=== PATIENT | female | born 1980 | race Caucasian/White ===

== ENCOUNTER → 2018-10-17 09:32 | Outpatient (CLI) | payer OTHER, SELFPAY ==
[2018-10-18 04:55] LABS: Rapid Plasmin Reagin (RPR) NONREACTIVE (NONREACTIVE)
--- OUTSIDE RECORDS SUMMARY | 2018-12-03 03:25 | XMS RPT_ITS ---
:1980 Author Organization OHIP Care Team Providers Name Role Phone Venessa MUÑIZ (PA-C) Referring Unavailable SONAL SPEARS (AIRPLANE CABIN ATTENDANT) Attending Unavailable Venessa MUÑIZ (PA-C) Attending Unavailable Venessa MUÑIZ (PA-C) Attending Unavailable LOCO REN Attending Unavailable Venessa MUÑIZ (PA-C) Attending Unavailable VINCENT [place] (PT) Attending Unavailable Venessa MUÑIZ (PA-C) Referring Unavailable MUÑIZVenessa (PA-C) Referring Unavailable MUÑIZVenessa (PA-C) Attending Unavailable Venessa MUÑIZ (PA-C) Attending Unavailable Venessa MUÑIZ (PA-C) Attending Unavailable LOCO REN Referring Unavailable JENNA FRASER (AIRPLANE CABIN ATTENDANT) Attending Unavailable Venessa MUÑIZ (PA-C) Attending Unavailable LOCO REN Referring Unavailable LOCO REN Attending Unavailable JENNA FRASER (AIRPLANE CABIN ATTENDANT) Referring Unavailable RADHA, JENNA (AIRPLANE CABIN ATTENDANT) Referring Unavailable MUÑIZVenessa CANDELARIO (PA-C) Attending Unavailable Venessa MUÑIZ (PA-C) Attending Unavailable Venessa MUÑIZ (PA-C) Attending Unavailable LOCO REN Attending Unavailable Venessa MUÑIZ (PA-C) Attending Unavailable Venessa MUÑIZ (PA-C) Referring Unavailable MUÑIZVenessa CANDELARIO (PA-C) Attending Unavailable Venessa MUÑIZ (PA-C) Attending Unavailable JENNA FRASER (AIRPLANE CABIN ATTENDANT) Attending Unavailable VINCENT [place] (PT) Attending Unavailable Venessa MUÑIZ (ESPERANZA) Referring Unavailable Radha, Ileana Attending Unavailable Radha, Ileana Referring Unavailable Primay Care Physicia, No Primary Care Unavailable PROBLEMS PROBLEMS DATE TYPE CONDITION / CODE ATTENDING STATUS SOURCE 10/17/2018 Active Left upper quadrant NA Active [facility] pain / [facility] [place] R10.12(ICD-10) Repository 10/18/2018 Unknown Z11.3 - Encounter [place], Active [place] for screening for Ileana Community infections with a Hospital predominantly Repository sexual mode of transmission / Z11.3(ICD-10) 10/04/2018 Active Chest pain, NA Active [facility] unspecified / [facility] [place] R07.9(ICD-10) Repository 06/03/2018 Active Unspecified injury NA Active [facility] of right wrist, [place] hand and finger(s), Repository initial encounter / S69.91XA(ICD-10) 03/13/2014 Active Anxiety disorder, NA Active [facility] unspecified / [place] F41.9(ICD-10) Repository 05/24/2018 Active Fasciculation / NA Active [facility] R25.3(ICD-10) [place] Repository 12/12/2017 Active Headache / NA Active [facility] R51(ICD-10) [place] Repository PROCEDURES PROCEDURES No Procedure Records FoundRESULTS RESULTS PROGRESS Observed: 11/14/2018 Status: COMPLETED Source: [place] 8:25 AM [facility] REPOSITORY HNO ID: [id number] Author: Venessa Abel ([place]peranza) Antonino Service: (none) Author Type: Physician Blindstitch Hemmer Type: Progress Notes Filed: 11/14/2018 8:30 AM Note Text: 38 year old female with c/o recurrent occipital headache and neck pain . here for OMT. No radiating pain. Continued intermittent anxiety. Requesting refill Xanax: sparing use. HISTORIES FAMILY HISTORY Problem Relation Age of Onset - Diabetes Mother - None Father from ? polimyelitis? 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 - Insomnia, unspecified - Myopia - Tension headache PAST SURGICAL HISTORY Procedure Laterality Date - LASIK 04/02/2014 FS OD DVA by Dr Chaves/Dr Fagan attending - LIGATE FALLOPIAN TUBE 2004 Tubal ligation - PAST SURGICAL HISTORY OF age 20 +/- wisdom teeth - PRK 04/02/2014 with [facility] OS DVA by Dr Chaves/Dr Fagan attending Social History Marital status: Spouse name: sebas Years of education: Number of children: 2 Occupational History Occupation Employer Comment [employer]* Social History Main Topics Smoking status: Never Smoker Smokeless tobacco: Never Used Alcohol use: Yes Comment: occasion Drug use: No Sexual activity: Yes Partners with: Male control/protection: Tubal Ligation Comment: Monogamous with of 8 years. ACTIVE PROBLEM LIST Impaired Fasting Glucose Abnormal Maternal Glucose Tolerance, Antepartum Tension Headache Insomnia, Unspecified Migraine, Unspecified, Without Mention of Intractable Migraine Without Mention of Status Migrainosus Anxiety Elevated Blood Pressure (Not Hypertension) Left Upper Extremity Numbness Cervicothoracic Somatic Dysfunction Neck Pain Muscle Tension Headache Current Outpatient Prescriptions: ranitidine (ZANTAC) 150 mg tablet Take 1 tablet by mouth twice daily. Disp: 60 tablet Rfl: 11 No current facility-administered medications for this visit. DTAP,TDAP,TD(2 - Td) due on 10/22/2018 EXAM: BP 132/80 Pulse 64 Temp 36.1 ?C (97 ?F) (Tympanic) Resp 20 Pleasant adult woman in no acute distress. Alert and oriented all spheres. Normal affect and cognition. Speech normal. No deficits to learning or comprehension. Skin warm, dry, pink to lips and nailbeds. Normal turgor. Respirations regular and unlabored. Similar to previous exams: Tender trigger points bilateral neck, mild restrictions, tender in the upper Thoracics as well. Extrem: no clubbing, cyanosis, edema. Extremities are warm and pink with prompt capillary refill. OMT: Myofascial release, HVLA to cervical and thoracic segments with marked improvement. ASSESSMENT/PLAN: 1. Cervicothoracic somatic dysfunction - ICD9: 739.1, ICD10: M99.01 (primary diagnosis) F/u prn 2. Anxiety - ICD9: 300.00, ICD10: F41.9 Limit use. We should stop if possible. - LORAZEPAM 0.5 MG TABLET ESPERANZA De La Cruz Observed: 11/14/2018 Status: COMPLETED Source: [place] 8:00 AM [facility] REPOSITORY Office Visit (FAMPWS) DAYANMANUEL Gris ([id number]) 1980 F Date Time Provider Department 11/14/18 8:00 AM Venessa MUÑIZ) FAMPWS During your visit today, we recorded the following information about you: Temperature Pulse Respiration Blood pressure 97 degrees 64/minute 20/minute 132/80 M Colten Muñiz PA-C 11/14/2018 8:30 AM Signed 38 year old female with c/o recurrent occipital headache and neck pain . here for OMT. No radiating pain. Continued intermittent anxiety. Requesting refill Xanax: sparing use. HISTORIES FAMILY HISTORY Problem Relation Age of Onset - Diabetes Mother - None Father from ? polimyelitis? 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 - Insomnia, unspecified - Myopia - Tension headache PAST SURGICAL HISTORY Procedure Laterality Date - LASIK 04/02/2014 FS OD DVA by Dr Chaves/Dr Fagan attending - LIGATE FALLOPIAN TUBE 2005 Tubal ligation - PAST SURGICAL HISTORY OF age 20 +/- wisdom teeth - PRK 04/02/2014 with [facility] OS DVA by Dr Chaves/Dr Fagan attending Social History Marital status: Spouse name: sebas Years of education: Number of children: 2 Occupational History Occupation Employer Comment [employer] Social History Main Topics Smoking status: Never Smoker Smokeless tobacco: Never Used Alcohol use: Yes Comment: occasion Drug use: No Sexual activity: Yes Partners with: Male control/protection: Tubal Ligation Comment: Monogamous with of 8 years. ACTIVE PROBLEM LIST Impaired Fasting Glucose Abnormal Maternal Glucose Tolerance, Antepartum Tension Headache Insomnia, Unspecified Migraine, Unspecified, Without Mention of Intractable Migraine Without Mention of Status Migrainosus Anxiety Elevated Blood Pressure (Not Hypertension) Left Upper Extremity Numbness Cervicothoracic Somatic Dysfunction Neck Pain Muscle Tension Headache Current Outpatient Prescriptions: ranitidine (ZANTAC) 150 mg tablet Take 1 tablet by mouth twice daily. Disp: 60 tablet Rfl: 11 No current facility-administered medications for this visit. DTAP,TDAP,TD(2 - Td) due on 10/22/2018 EXAM: BP 132/80 Pulse 64 Temp 36.1 ?C (97 ?F) (Tympanic) Resp 20 Pleasant adult woman in no acute distress. Alert and oriented all spheres. Normal affect and cognition. Speech normal. No deficits to learning or comprehension. Skin warm, dry, pink to lips and nailbeds. Normal turgor. Respirations regular and unlabored. Similar to previous exams: Tender trigger points bilateral neck, mild restrictions, tender in the upper Thoracics as well. Extrem: no clubbing, cyanosis, edema. Extremities are warm and pink with prompt capillary refill. OMT: Myofascial release, HVLA to cervical and thoracic segments with marked improvement. ASSESSMENT/PLAN: 1. Cervicothoracic somatic dysfunction - ICD9: 739.1, ICD10: M99.01 (primary diagnosis) F/u prn 2. Anxiety - ICD9: 300.00, ICD10: F41.9 Limit use. We should stop if possible. - LORAZEPAM 0.5 MG TABLET ESPERANZA De La Cruz LPN 11/14/2018 9:04 AM Signed Printed ativan script by mistake and refill is not needed at this time. Printed script was destroyed at this time. Witnessed by Lorie Buck LPN Referring Provider: SELF [[id number]] Allergies As of Date: 11/14/2018 Noted Allergy Reaction AMOXACILLIN (AMOXICILLIN) 08/31/2008 4 - Hives PAXIL (PAROXETINE HCL) 10/15/2017 8 - GI Upset Comments: Nausea, vomiting. PERCOCET (OXYCODONE-ACETAMINOPHEN)04/08/2014 11 - Vomiting ZOLOFT (SERTRALINE HCL) 10/15/2017 5 - Intolerance Comments: Nausea, trouble eating Date Reviewed: 11/14/2018 Reviewed by: Bertha Buck LPN - Fully Assessed Reason for Visit: Neck Pain [135] Cmt: upper back Primary Visit Diagnosis:Cervicothoracic somatic dysfunction [M99.01] Other Visit Diagnosis:Anxiety [F41.9] Order(s):LORazepam (ATIVAN) 0.5 mg tabTake 1 tablet by mouth once daily as needed for up to 30 days.Disp: 15 tabletRfl: 0 Prescriptions as of 11/14/2018 Sig: LORAZEPAM 0.5 MG TABLET Take 1 tablet by mouth once d* RANITIDINE 150 MG TABLET Take 1 tablet by mouth twice * Problem List As Of Date 11/14/2018 Noted Resolved Impaired fasting glucose [R73.01] INVALID FOR* ABN GLUCOSE-ANTEPARTUM [O99.810] TENSION HEADACHE [G44.209] INVALID FOR* Insomnia, unspecified [G47.00] INVALID FOR* Routine general medical examination at a health*INVALID FOR*09/25/2013 Class: Chronic More... Routine gynecological examination [Z01.419] INVALID FOR*09/25/2013 Class: Chronic More... Migraine, unspecified, without mention of intra*INVALID FOR* Anxiety [F41.9] INVALID FOR* Elevated blood pressure (not hypertension) [R03*INVALID FOR* Left upper extremity numbness [R20.0] INVALID FOR* Counseling and coordination of care [Z71.89] INVALID FOR*07/09/2015 More... Cervicothoracic somatic dysfunction [M99.01] INVALID FOR* Neck pain [M54.2] INVALID FOR* Muscle tension headache [G44.209] INVALID FOR* Visit Notes: >> Bertha Buck LPN Joan Nov 14, 2018 9:02 AM Status: Signed Printed ativan script by mistake and refill is not needed at this time. Printed script was destroyed at this time. Witnessed by Lorie Buck LPN Prescriptions ordered this encounter Disp Refills Start End LORAZEPAM 0.5 MG TABLET 15 t* 0 11/14/2018 12/14/2018 Class: Print RX Route: ORAL Sig: Take 1 tablet by mouth once daily as needed for up to 30 days. Medications Discontinued During This Encounter LORazepam (ATIVAN) 0.5 mg tab 15 t* 0 09/23/2018 11/14/2018 Class: Print RX Route: ORAL Sig: Take 1 tablet by mouth once daily as needed for up to 30 days. Disc: Reason for discontinue is not on file. Encounter Status:Closed by Venessa MUÑIZ PA-C on 11/14/18 CBC AND DIFFERENTIAL Collected: 10/17/2018 Status: F Source: [place] 10:28 AM [facility] REPOSITORY TYPE CODE TESTS RESULT OUT OF REFERENCE UNITS RANGE LAB WBC 3.70-11.00 k/uL WBC 6.86 LAB RBC 3.90-5.20 m/uL RBC 4.46 LAB HGB 11.5-15.5 g/dL Hemoglobin 13.2 LAB HCT 36.0-46.0 % Hematocrit 40.4 LAB MCV 80.0-100.0 fL MCV 90.6 LAB MCH 26.0-34.0 pG MCH 29.6 LAB MCHC 30.5-36.0 g/dL MCHC 32.7 LAB RDWCV 11.5-15.0 % RDW-CV 12.3 LAB PLTCT 150-400 k/uL Platelet Count 289 LAB MPV 9.0-12.7 fL MPV 9.1 LAB ANEUT % Neut% 64.9 LAB AANEUT 1.45-7.50 k/uL Abs Neut 4.43 LAB ALYMP % Lymph% 27.8 LAB AALYMP 1.00-4.00 k/uL Abs Lymph 1.91 LAB AMONO % [place]% 6.0 LAB AAMONO <0.87 k/uL Abs [place] 0.41 LAB AEOS % Eosin% 0.7 LAB AAEOS <0.46 k/uL Abs Eosin 0.05 LAB ABASO % Baso% 0.6 LAB AABASO <0.11 k/uL Abs Baso 0.04 LAB AUNRBC 0 /100 WBC NRBCs 0.0 LAB ABNRBC <0.01 k/uL Absolute nRBC <0.01 LAB DTYP DTYPE Auto Diff Performed By: #### CBCDIF, CMP, LIPA #### [facility] [address] [place] [address] COMP METABOLIC PANEL Collected: 10/17/2018 Status: F Source: [place] 10:28 AM [facility] REPOSITORY TYPE CODE TESTS RESULT OUT OF REFERENCE UNITS RANGE LAB TP 6.3-8.0 g/dL Protein, Total 6.7 LAB ALB 3.9-4.9 g/dL Albumin 4.2 LAB CA 8.5-10.2 mg/dL Calcium, Total 9.2 LAB TBIL 0.2-1.3 mg/dL Bilirubin, Total 0.3 LAB ALKP 34-123 U/L Alkaline Phosphatase 48 LAB AST 13-35 U/L AST 15 LAB GLU 74-99 mg/dL Glucose 95 Result Comment: The [place] Diabetes Association (ADA) provides guidance for cutoff values for fasting glucose and random glucose. The ADA defines fasting as no caloric intake for at least 8 hours. Fas ting plasma glucose results between 100 to 125 mg/dL indicate increased risk for diabetes (prediabetes). Fasting plasma glucose results greater than or equal to 126 mg/dL meet the criteria for diagnosis of diabetes. In the absence of unequivocal hyperglycemia, results should be confirmed by repeat testing. In a patient with classic symptoms of hyperglycemia or hyperglycemic crisis, random plasma glucose results greater than or equal to 200 mg/dL meet the criteria for diagnosis of diabetes. Reference: Standards of Medical Care in Diabetes 2016, [place] [employer] Association. Diabetes Care. 2016.39(Suppl 1). LAB BUN 7-21 mg/dL BUN 13 LAB CRET 0.58-0.96 mg/dL Creatinine 0.75 LAB NA 136-144 mmol/L Sodium 137 LAB K 3.7-5.1 mmol/L Potassium 4.5 LAB CL 97-105 mmol/L Chloride 103 LAB CO2 22-30 mmol/L CO2 25 LAB AGAP 9-18 mmol/L Anion Gap 9 LAB ALT 7-38 U/L ALT 10 LAB GFRAA eGFR- Amer. >60 LAB GFRNAA . eGFR-All Other Races >60 Result Comment: eGFR (Estimated GFR) Units of measure: mL/min/1.73 meters squared eGFR is derived from the reexpressed MDRD Study equation using the following parameters: serum creatinine, age, gender and race. The creatinine assay has been calibrated to be traceable to IDMS. An eGFR <60 mL/min/1.73m2 for >3 months is consistent with chronic kidney disease. Refer to KDOQI guidelines for clinical interpretation. In patients with unstable renal function, e.g. those with acute kidney injury, the eGFR may not accurately reflect actual GFR. Performed By: #### CBCDIF, CMP, LIPA #### [facility] [address], [place] [address] LIPASE Collected: 10/17/2018 Status: F Source: [place] 10:28 AM [facility] REPOSITORY TYPE CODE TESTS RESULT OUT OF REFERENCE UNITS RANGE LAB LIPA 16-61 U/L Lipase 42 Performed By: #### CBCDIF, CMP, LIPA #### [facility] [address] [place], [place] [address] RAPID PLASMIN REAGIN Collected: 10/17/2018 Status: F Source: [place] (RPR) 9:42 AM [facility] REPOSITORY TYPE CODE TESTS RESULT OUT OF REFERENCE UNITS RANGE LAB L700.5000 NONREACTIVE NONREACTIVE Normal RPR Performed By: #### L700.5000 #### [facility] [address] [place], [place], [address] HSV 1 AND 2 IGG Collected: 10/17/2018 Status: F Source: [place] 9:42 AM [facility] REPOSITORY TYPE CODE TESTS RESULT OUT OF RANGE REFERENCE UNITS LAB L3400.1620 0.00-0.90 index High HSV 1 IgG 28.70 Result Comment: Negative <0.91 Equivocal 0.91 - 1.09 Positive >1.09 Note: Negative indicates no antibodies detected to HSV-1. Equivocal may suggest early infection. If clinically appropriate, retest at later date. Positive indicates antibodies detected to HSV-1. LAB L3400.1630 0.00-0.90 index High 14.60 HSV 2 IgG Result Comment: Negative <0.91 Equivocal 0.91 - 1.09 Positive >1.09 Note: Negative indicates no antibodies detected to HSV-2. Equivocal may suggest early infection. If clinically appropriate, retest at later date. Positive indicates antibodies detected to HSV-2. Performed at: - [facility] [address] [id number] Fresh Food Manager: Karlos Bolanos PhD, Phone: [phone] Performed By: #### L3400.1610 #### [facility] (refer to report for specific site) refer to report for address and phone number CNOV Observed: 10/17/2018 Status: COMPLETED Source: [place] 8:30 AM [facility] REPOSITORY Office Visit (WOOB) MANUEL HANLEY ([id number]) 1980 F Date Time Provider Department 10/17/18 8:30 AM JENNA FRASER (PAULA) WOOB During your visit today, we recorded the following information about you: Blood pressure Last Period 120/70 10/14/18 Jenna Fraser APRN.CNP 10/17/2018 9:12 AM Signed Manuel Hanley is a 38 year old female who presents for problem visit Concern for possible exposure to herpes HPI: pt states that her BF noticed a blister like lesion on his penis last week and they had sex after noticing the blister but did not tell her until this morning because the spot has not gone away. He has been her only sexually partner in the past year. She denies any blisters or lesions. Currently on menses. She is also concerned that her periods have been coming early the past few months. She is normally every 28 days and it has been up to 6 days early. BTO no concern for PAST MEDICAL HISTORY Diagnosis Date - Abnormal maternal glucose tolerance, antepartum 1995 - Insomnia, unspecified - Myopia - Tension headache PAST SURGICAL HISTORY Procedure Laterality Date - LASIK 04/02/2014 FS OD DVA by Dr Chaves/Dr Fagan attending - LIGATE FALLOPIAN TUBE 2004 Tubal ligation - PAST SURGICAL HISTORY OF age 20 +/- wisdom teeth - PRK 04/02/2014 with [facility] OS DVA by Dr Chaves/Dr Fagan attending FAMILY HISTORY Problem Relation Age of Onset - Diabetes Mother - None Father from ? polimyelitis? (see 04/25/2011) - Cancer Maternal Grandfather unknown primary Social History Marital status: Spouse name: sebas Years of education: Number of children: 2 Occupational History Occupation Employer Comment [employer]* Social History Main Topics Smoking status: Never Smoker Smokeless tobacco: Never Used Alcohol use: Yes Comment: occasion Drug use: No Sexual activity: Yes Partners with: Male control/protection: Tubal Ligation Comment: Monogamous with of 8 years. Current Outpatient Prescriptions: LORazepam (ATIVAN) 0.5 mg tab Take 1 tablet by mouth once daily as needed for up to 30 days. ranitidine (ZANTAC) 150 mg tablet Take 1 tablet by mouth twice daily. No current facility-administered medications for this visit. Allergies As of Date: 10/17/2018 Allergen Noted Reaction AMOXACILLIN [AMOXICILLIN] 08/31/2008 Hives PAXIL [PAROXETINE HCL] 10/15/2017 GI Upset PERCOCET [OXYCODONE-ACETAMINOPHEN]04/08/2014 Vomiting ZOLOFT [SERTRALINE HCL] 10/15/2017 Intolerance Fully Assessed 10/17/2018 REVIEW OF SYSTEMS Abdomen: No bloating, early satiety, indigestion, or increased flatulence. No abdominal pain, nausea, vomiting, diarrhea, or constipation. Bladder: No dysuria, gross hematuria, urinary frequency, urinary urgency, or incontinence. Expanded ROS: N/A Allergies and current medication updated:Yes EXAM: Wt 0 lb (0.0kg) LMP 10/14/2018 GENERAL: pleasant, female in no apparent distress HEENT: Normocephalic, atraumatic, mucus membranes moist and no lesions CHEST: Normal inspiratory effort NEURO: alert and oriented x3,exam grossly non-focal ASSESSMENT AND PLAN: Herpes and syphilis testing order-pt is going to 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 Discussed using OCP or a Mirena to help with period control- she will think about it if menses continue to get closer together. Follow up PRN Jenna Fraser, HACK SAW OPERATOR.AIRPLANE CABIN ATTENDANT Referring Provider: SELF [[id number]] Allergies As of Date: 10/17/2018 Noted Allergy Reaction AMOXACILLIN (AMOXICILLIN) 08/31/2008 4 - Hives PAXIL (PAROXETINE HCL) 10/15/2017 8 - GI Upset Comments: Nausea, vomiting. PERCOCET (OXYCODONE-ACETAMINOPHEN)04/08/2014 11 - Vomiting ZOLOFT (SERTRALINE HCL) 10/15/2017 5 - Intolerance Comments: Nausea, trouble eating Date Reviewed: 10/17/2018 Reviewed by: Jenna Pacheco) Radha - Fully Assessed Reason for Visit: Discussion [813] Cmt: menses Primary Visit Diagnosis:Screening for STDs (sexually transmitted diseases) [Z11.3] Prescriptions as of 10/17/2018 Sig: LORAZEPAM 0.5 MG TABLET Take 1 tablet by mouth once d* RANITIDINE 150 MG TABLET Take 1 tablet by mouth twice * Problem List As Of Date 10/17/2018 Noted Resolved Impaired fasting glucose [R73.01] INVALID FOR* ABN GLUCOSE-ANTEPARTUM [O99.810] TENSION HEADACHE [G44.209] INVALID FOR* Insomnia, unspecified [G47.00] INVALID FOR* Routine general medical examination at a health*INVALID FOR*09/25/2013 Class: Chronic More... Routine gynecological examination [Z01.419] INVALID FOR*09/25/2013 Class: Chronic More... Migraine, unspecified, without mention of intra*INVALID FOR* Anxiety [F41.9] INVALID FOR* Elevated blood pressure (not hypertension) [R03*INVALID FOR* Left upper extremity numbness [R20.0] INVALID FOR* Counseling and coordination of care [Z71.89] INVALID FOR*07/09/2015 More... Cervicothoracic somatic dysfunction [M99.01] INVALID FOR* Neck pain [M54.2] INVALID FOR* Muscle tension headache [G44.209] INVALID FOR* Encounter Status:Closed by JENNA FRASER on 10/17/18 PROGRESS Observed: 10/17/2018 Status: COMPLETED Source: [place] 8:25 AM [facility] [place] REPOSITORY HNO ID: [id number] Author: Jenna Fraser Service: (none) Author Type: Nurse Practitioner Type: Progress Notes Filed: 10/17/2018 9:12 AM Note Text: Manuel Hanley is a 38 year old female who presents for problem visit Concern for possible exposure to herpes HPI: pt states that her BF noticed a blister like lesion on his penis last week and they had sex after noticing the blister but did not tell her until this morning because the spot has not gone away. He has been her only sexually partner in the past year. She denies any blisters or lesions. Currently on menses. She is also concerned that her periods have been coming early the past few months. She is normally every 28 days and it has been up to 6 days early. BTO no concern for PAST MEDICAL HISTORY Diagnosis Date - Abnormal maternal glucose tolerance, antepartum 1995 - Insomnia, unspecified - Myopia - Tension headache PAST SURGICAL HISTORY Procedure Laterality Date - LASIK 04/02/2014 FS OD DVA by Dr Chaves/Dr Fagan attending - LIGATE FALLOPIAN TUBE 2004 Tubal ligation - PAST SURGICAL HISTORY OF age 20 +/- wisdom teeth - PRK 04/02/2014 with [facility] OS DVA by Dr Chaves/Dr Fagan attending FAMILY HISTORY Problem Relation Age of Onset - Diabetes Mother - None Father from ? polimyelitis? (see 04/25/2011) - Cancer Maternal Grandfather unknown primary Social History Marital status: Spouse name: sebas Years of education: Number of children: 2 Occupational History Occupation Employer Comment [employer]* Social History Main Topics Smoking status: Never Smoker Smokeless tobacco: Never Used Alcohol use: Yes Comment: occasion Drug use: No Sexual activity: Yes Partners with: Male control/protection: Tubal Ligation Comment: Monogamous with of 8 years. Current Outpatient Prescriptions: LORazepam (ATIVAN) 0.5 mg tab Take 1 tablet by mouth once daily as needed for up to 30 days. ranitidine (ZANTAC) 150 mg tablet Take 1 tablet by mouth twice daily. No current facility-administered medications for this visit. Allergies As of Date: 10/17/2018 Allergen Noted Reaction AMOXACILLIN [AMOXICILLIN] 08/31/2008 Hives PAXIL [PAROXETINE HCL] 10/15/2017 GI Upset PERCOCET [OXYCODONE-ACETAMINOPHEN]04/08/2014 Vomiting ZOLOFT [SERTRALINE HCL] 10/15/2017 Intolerance Fully Assessed 10/17/2018 REVIEW OF SYSTEMS Abdomen: No bloating, early satiety, indigestion, or increased flatulence. No abdominal pain, nausea, vomiting, diarrhea, or constipation. Bladder: No dysuria, gross hematuria, urinary frequency, urinary urgency, or incontinence. Expanded ROS: N/A Allergies and current medication updated:Yes EXAM: Wt 0 lb (0.0kg) LMP 10/14/2018 GENERAL: pleasant, female in no apparent distress HEENT: Normocephalic, atraumatic, mucus membranes moist and no lesions CHEST: Normal inspiratory effort NEURO: alert and oriented x3,exam grossly non-focal ASSESSMENT AND PLAN: Herpes and syphilis testing order-pt is going to 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 Discussed using OCP or a Mirena to help with period control- she will think about it if menses continue to get closer together. Follow up SANGN Jenna Fraser APRN.CNP PROGRESS Observed: 10/16/2018 Status: COMPLETED Source: [place] 8:19 AM [facility] RE[facility] HNO ID: [id number] Author: Venessa Abel (Esperanza) Antonino Service: (none) Author Type: Physician Blindstitch Hemmer Type: Progress Notes Filed: 10/16/2018 8:22 AM Note Text: BP 132/72 Pulse 64 Temp 36.7 ?C (98 ?F) (Tympanic) Resp 16 38 year old female with c/o returns for OMT with chronic right neck and shoulder pain. No numbness, tingling, loss of strength. HISTORIES FAMILY HISTORY Problem Relation Age of Onset - Diabetes Mother - None Father from ? polimyelitis? (see 04/25/2011) - Cancer Maternal Grandfather unknown primary PAST MEDICAL HISTORY Diagnosis Date - Abnormal maternal glucose tolerance, antepartum 1995 - Insomnia, unspecified - Myopia - Tension headache PAST SURGICAL HISTORY Procedure Laterality Date - LASIK 04/02/2014 FS OD DVA by Dr Chaves/Dr Fagan attending - LIGATE FALLOPIAN TUBE 2004 Tubal ligation - PAST SURGICAL HISTORY OF age 20 +/- wisdom teeth - PRK 04/02/2014 with [facility] OS DVA by Dr Chaves/Dr Fagan attending Social History Marital status: Spouse name: sebas Years of education: Number of children: 2 Occupational History Occupation Employer Comment [employer] [place] Social History Main Topics Smoking status: Never Smoker Smokeless tobacco: Never Used Alcohol use: Yes Comment: occasion Drug use: No Sexual activity: Yes Partners with: Male control/protection: Tubal Ligation Comment: Monogamous with of 8 years. ACTIVE PROBLEM LIST Impaired Fasting Glucose Abnormal Maternal Glucose Tolerance, Antepartum Tension Headache Insomnia, Unspecified Migraine, Unspecified, Without Mention of Intractable Migraine Without Mention of Status Migrainosus Anxiety Elevated Blood Pressure (Not Hypertension) Left Upper Extremity Numbness Cervicothoracic Somatic Dysfunction Neck Pain Muscle Tension Headache Current Outpatient Prescriptions: LORazepam (ATIVAN) 0.5 mg tab Take 1 tablet by mouth once daily as needed for up to 30 days. Disp: 15 tablet Rfl: 0 ranitidine (ZANTAC) 150 mg tablet Take 1 tablet by mouth twice daily. Disp: 60 tablet Rfl: 11 No current facility-administered medications for this visit. DTAP,TDAP,TD(2 - Td) due on 10/22/2018 EXAM: BP 132/72 Pulse 64 Temp 36.7 ?C (98 ?F) (Tympanic) Resp 16 Pleasant Adult woman in no acute distress. Alert and oriented all spheres. Normal affect and cognition. Speech normal. No deficits to learning or comprehension. Skin warm, dry, pink to lips and nailbeds. Normal turgor. Respirations regular and unlabored. Neck is supple, mild restrictions to right and left lateral rotation in right side bending. Patient has in her trigger points, rotation of the fourth and fifth right cervical vertebrae. Also tender trigger points and restrictions of the thoracic spine. Extrem: no clubbing, cyanosis, edema. Extremities are warm and pink with prompt capillary refill. OMT: Myofascial release to tender trigger points bilaterally, HVLA to cervical and thoracic segments with improvement. ASSESSMENT/PLAN: 1. Cervicothoracic somatic dysfunction - ICD9: 739.1, ICD10: M99.01 Stretching, posture reviewed. Follow-up as needed. Venessa Muñiz PA-C x CNOV Observed: 10/16/2018 Status: COMPLETED Source: [place] 8:00 AM [facility] REPOSITORY Office Visit ([facility]) MANUEL HANLEY ([id number]) 1980 F Date Time Provider Department 10/16/18 8:00 AM Venessa MUÑIZ) [facility] During your visit today, we recorded the following information about you: Temperature Pulse Respiration Blood pressure 98 degrees 64/minute 16/minute 132/72 Venessa Muñiz PA-C 10/16/2018 8:22 AM Signed BP 132/72 Pulse 64 Temp 36.7 ?C (98 ?F) (Tympanic) Resp 16 38 year old female with c/o returns for OMT with chronic right neck and shoulder pain. No numbness, tingling, loss of strength. HISTORIES FAMILY HISTORY Problem Relation Age of Onset - Diabetes Mother - None Father from ? polimyelitis? (see 04/25/2011) - Cancer Maternal Grandfather unknown primary PAST MEDICAL HISTORY Diagnosis Date - Abnormal maternal glucose tolerance, antepartum 1995 - Insomnia, unspecified - Myopia - Tension headache PAST SURGICAL HISTORY Procedure Laterality Date - LASIK 04/02/2014 FS OD DVA by Dr Chaves/Dr Fagan attending - LIGATE FALLOPIAN TUBE 2004 Tubal ligation - PAST SURGICAL HISTORY OF age 20 +/- wisdom teeth - PRK 04/02/2014 with [facility] OS DVA by Dr Chaves/Dr Fagan attending Social History Marital status: Spouse name: sebas Years of education: Number of children: 2 Occupational History Occupation Employer Comment [employer] Social History Main Topics Smoking status: Never Smoker Smokeless tobacco: Never Used Alcohol use: Yes Comment: occasion Drug use: No Sexual activity: Yes Partners with: Male control/protection: Tubal Ligation Comment: Monogamous with of 8 years. ACTIVE PROBLEM LIST Impaired Fasting Glucose Abnormal Maternal Glucose Tolerance, Antepartum Tension Headache Insomnia, Unspecified Migraine, Unspecified, Without Mention of Intractable Migraine Without Mention of Status Migrainosus Anxiety Elevated Blood Pressure (Not Hypertension) Left Upper Extremity Numbness Cervicothoracic Somatic Dysfunction Neck Pain Muscle Tension Headache Current Outpatient Prescriptions: LORazepam (ATIVAN) 0.5 mg tab Take 1 tablet by mouth once daily as needed for up to 30 days. Disp: 15 tablet Rfl: 0 ranitidine (ZANTAC) 150 mg tablet Take 1 tablet by mouth twice daily. Disp: 60 tablet Rfl: 11 No current facility-administered medications for this visit. DTAP,TDAP,TD(2 - Td) due on 10/22/2018 EXAM: BP 132/72 Pulse 64 Temp 36.7 ?C (98 ?F) (Tympanic) Resp 16 Pleasant Adult woman in no acute distress. Alert and oriented all spheres. Normal affect and cognition. Speech normal. No deficits to learning or comprehension. Skin warm, dry, pink to lips and nailbeds. Normal turgor. Respirations regular and unlabored. Neck is supple, mild restrictions to right and left lateral rotation in right side bending. Patient has in her trigger points, rotation of the fourth and fifth right cervical vertebrae. Also tender trigger points and restrictions of the thoracic spine. Extrem: no clubbing, cyanosis, edema. Extremities are warm and pink with prompt capillary refill. OMT: Myofascial release to tender trigger points bilaterally, HVLA to cervical and thoracic segments with improvement. ASSESSMENT/PLAN: 1. Cervicothoracic somatic dysfunction - ICD9: 739.1, ICD10: M99.01 Stretching, posture reviewed. Follow-up as needed. ESPERANZA De La Cruz Referring Provider: SELF [[id number]] Allergies As of Date: 10/16/2018 Noted Allergy Reaction AMOXACILLIN (AMOXICILLIN) 08/31/2008 4 - Hives PAXIL (PAROXETINE HCL) 10/15/2017 8 - GI Upset Comments: Nausea, vomiting. PERCOCET (OXYCODONE-ACETAMINOPHEN)04/08/2014 11 - Vomiting ZOLOFT (SERTRALINE HCL) 10/15/2017 5 - Intolerance Comments: Nausea, trouble eating Date Reviewed: 10/16/2018 Reviewed by: Chayito Bal LPN - Fully Assessed Reason for Visit: Neck Pain [135] Cmt: started during the night Primary Visit Diagnosis:Cervicothoracic somatic dysfunction [M99.01] Prescriptions as of 10/16/2018 Sig: LORAZEPAM 0.5 MG TABLET Take 1 tablet by mouth once d* RANITIDINE 150 MG TABLET Take 1 tablet by mouth twice * Problem List As Of Date 10/16/2018 Noted Resolved Impaired fasting glucose [R73.01] INVALID FOR* ABN GLUCOSE-ANTEPARTUM [O99.810] TENSION HEADACHE [G44.209] INVALID FOR* Insomnia, unspecified [G47.00] INVALID FOR* Routine general medical examination at a health*INVALID FOR*09/25/2013 Class: Chronic More... Routine gynecological examination [Z01.419] INVALID FOR*09/25/2013 Class: Chronic More... Migraine, unspecified, without mention of intra*INVALID FOR* Anxiety [F41.9] INVALID FOR* Elevated blood pressure (not hypertension) [R03*INVALID FOR* Left upper extremity numbness [R20.0] INVALID FOR* Counseling and coordination of care [Z71.89] INVALID FOR*07/09/2015 More... Cervicothoracic somatic dysfunction [M99.01] INVALID FOR* Neck pain [M54.2] INVALID FOR* Muscle tension headache [G44.209] INVALID FOR* Encounter Status:Closed by Venessa MUÑIZ PA-C on 10/16/18 PROGRESS Observed: 10/07/2018 Status: COMPLETED Source: [place] 9:06 AM [facility] [place] REPOSITORY O ID: [id number] Author: Venessa Abel (Esperanza) Antonino Service: (none) Author Type: Physician Blindstitch Hemmer Type: Progress Notes Filed: 10/07/2018 9:27 AM Note Text: 38 year old female with c/o 1. Bilateral lower back pain, excruciating. Making her cry. Dr. Ren worked up for UTI but culture < 10k. No pain, burning, frequency. No blood in urine. Taking Advil 12-16 a day. Pain worsened on waking yesterday. Usually stomach sleeper, couldn't last night. No pain in legs, numbness, tingling or loss of strength. 2. Chronic issues with neck and shoulders HISTORIES FAMILY HISTORY Problem Relation Age of Onset - Diabetes Mother - None Father from ? polimyelitis? (see 04/25/2011) - Cancer Maternal Grandfather unknown primary PAST MEDICAL HISTORY Diagnosis Date - Abnormal maternal glucose tolerance, antepartum 1995 - Insomnia, unspecified - Myopia - Tension headache PAST SURGICAL HISTORY Procedure Laterality Date - LASIK 04/02/2014 FS OD DVA by Dr Chaves/Dr Fagan attending - LIGATE FALLOPIAN TUBE 2004 Tubal ligation - PAST SURGICAL HISTORY OF age 20 +/- wisdom teeth - PRK 04/02/2014 with [facility] OS DVA by Dr Chaves/Dr Fagan attending Social History Marital status: Spouse name: sebas Years of education: Number of children: 2 Occupational History Occupation Employer Comment [employer]* Social History Main Topics Smoking status: Never Smoker Smokeless tobacco: Never Used Alcohol use: Yes Comment: occasion Drug use: No Sexual activity: Yes Partners with: Male control/protection: Tubal Ligation Comment: Monogamous with of 8 years. ACTIVE PROBLEM LIST Impaired Fasting Glucose Abnormal Maternal Glucose Tolerance, Antepartum Tension Headache Insomnia, Unspecified Migraine, Unspecified, Without Mention of Intractable Migraine Without Mention of Status Migrainosus Anxiety Elevated Blood Pressure (Not Hypertension) Left Upper Extremity Numbness Cervicothoracic Somatic Dysfunction Neck Pain Muscle Tension Headache Current Outpatient Prescriptions: ranitidine (ZANTAC) 150 mg tablet Take 1 tablet by mouth twice daily. Disp: 60 tablet Rfl: 11 LORazepam (ATIVAN) 0.5 mg tab Take 1 tablet by mouth once daily as needed for up to 30 days. Disp: 15 tablet Rfl: 0 No current facility-administered medications for this visit. DTAP,TDAP,TD(2 - Td) due on 10/22/2018 EXAM: Pleasant adult in no acute distress. Alert and oriented all spheres. Normal affect and cognition. Speech normal. No deficits to learning or comprehension. Skin warm, dry, pink to lips and nailbeds. Normal turgor. Respirations regular and unlabored. Pain with ROM in lateral rotation and side bending with neck. TTPs through out neck, shoulders, upper back and lower back. Forward flexion back to midcalf with pain. Chest CTA. HRRR without murmur or gallop. Abdomen: active bowel sounds throughout, soft, nontender, no masses or organomegaly. No CVAT. Back with restrictions in neck, thoracic and lumbar slightly rotated anteriorly on left. No midline tenderness. Extrem: no clubbing, cyanosis, edema. Extremities are warm and pink with prompt capillary refill. OMT: myofascial release to trigger points. HVLA to cervical, thoracic and lumbar with improvement in pain and ROM. ASSESSMENT/PLAN: 1. Somatic dysfunction of spine, cervical - ICD9: 739.1, ICD10: M99.01 (primary diagnosis) 2. Somatic dysfunction of spine, thoracic - ICD9: 739.2, ICD10: M99.02 3. Somatic dysfunction of spine, lumbar - ICD9: 739.3, ICD10: M99.03 Ice/ moist heat, lineaments, OTC analgesics as needed,. Stretching and posture reviewed. Limit use Ibuprofen 800mg q6 to 2 weeks of less. Make sure to take with food. ESPERANZA De La Cruz Observed: 10/07/2018 Status: COMPLETED Source: [place] 9:00 AM [facility] REPOSITORY [facility]AN[facility] ([id number]) 1980 F Date Time Provider Department 10/07/18 9:00 AM Venessa MUÑIZ) ASHLEY During your visit today, we recorded the following information about you: Venessa Muñiz PA-C 10/07/2018 9:27 AM Signed 38 year old female with c/o 1. Bilateral lower back pain, excruciating. Making her cry. Dr. Ren worked up for UTI but culture < 10k. No pain, burning, frequency. No blood in urine. Taking Advil 12-16 a day. Pain worsened on waking yesterday. Usually stomach sleeper, couldn't last night. No pain in legs, numbness, tingling or loss of strength. 2. Chronic issues with neck and shoulders HISTORIES FAMILY HISTORY Problem Relation Age of Onset - Diabetes Mother - None Father from ? polimyelitis? (see 04/25/2011) - Cancer Maternal Grandfather unknown primary PAST MEDICAL HISTORY Diagnosis Date - Abnormal maternal glucose tolerance, antepartum 1995 - Insomnia, unspecified - Myopia - Tension headache PAST SURGICAL HISTORY Procedure Laterality Date - LASIK 04/02/2014 FS OD DVA by Dr Chaves/Dr Fagan attending - LIGATE FALLOPIAN TUBE 2004 Tubal ligation - PAST SURGICAL HISTORY OF age 20 +/- wisdom teeth - PRK 04/02/2014 with [facility] OS DVA by Dr Chaves/Dr Fagan attending Social History Marital status: Spouse name: sebas Years of education: Number of children: 2 Occupational History Occupation Employer Comment [employer] Social History Main Topics Smoking status: Never Smoker Smokeless tobacco: Never Used Alcohol use: Yes Comment: occasion Drug use: No Sexual activity: Yes Partners with: Male control/protection: Tubal Ligation Comment: Monogamous with of 8 years. ACTIVE PROBLEM LIST Impaired Fasting Glucose Abnormal Maternal Glucose Tolerance, Antepartum Tension Headache Insomnia, Unspecified Migraine, Unspecified, Without Mention of Intractable Migraine Without Mention of Status Migrainosus Anxiety Elevated Blood Pressure (Not Hypertension) Left Upper Extremity Numbness Cervicothoracic Somatic Dysfunction Neck Pain Muscle Tension Headache Current Outpatient Prescriptions: ranitidine (ZANTAC) 150 mg tablet Take 1 tablet by mouth twice daily. Disp: 60 tablet Rfl: 11 LORazepam (ATIVAN) 0.5 mg tab Take 1 tablet by mouth once daily as needed for up to 30 days. Disp: 15 tablet Rfl: 0 No current facility-administered medications for this visit. DTAP,TDAP,TD(2 - Td) due on 10/22/2018 EXAM: Pleasant adult in no acute distress. Alert and oriented all spheres. Normal affect and cognition. Speech normal. No deficits to learning or comprehension. Skin warm, dry, pink to lips and nailbeds. Normal turgor. Respirations regular and unlabored. Pain with ROM in lateral rotation and side bending with neck. TTPs through out neck, shoulders, upper back and lower back. Forward flexion back to midcalf with pain. Chest CTA. HRRR without murmur or gallop. Abdomen: active bowel sounds throughout, soft, nontender, no masses or organomegaly. No CVAT. Back with restrictions in neck, thoracic and lumbar slightly rotated anteriorly on left. No midline tenderness. Extrem: no clubbing, cyanosis, edema. Extremities are warm and pink with prompt capillary refill. OMT: myofascial release to trigger points. HVLA to cervical, thoracic and lumbar with improvement in pain and ROM. ASSESSMENT/PLAN: 1. Somatic dysfunction of spine, cervical - ICD9: 739.1, ICD10: M99.01 (primary diagnosis) 2. Somatic dysfunction of spine, thoracic - ICD9: 739.2, ICD10: M99.02 3. Somatic dysfunction of spine, lumbar - ICD9: 739.3, ICD10: M99.03 Ice/ moist heat, lineaments, OTC analgesics as needed,. Stretching and posture reviewed. Limit use Ibuprofen 800mg q6 to 2 weeks of less. Make sure to take with food. Venessa Muñiz PA-C Referring Provider: SELF [[id number]] Allergies As of Date: 10/07/2018 Noted Allergy Reaction AMOXACILLIN (AMOXICILLIN) 08/31/2008 4 - Hives PAXIL (PAROXETINE HCL) 10/15/2017 8 - GI Upset Comments: Nausea, vomiting. PERCOCET (OXYCODONE-ACETAMINOPHEN)04/08/2014 11 - Vomiting ZOLOFT (SERTRALINE HCL) 10/15/2017 5 - Intolerance Comments: Nausea, trouble eating Date Reviewed: 10/04/2018 Reviewed by: Lorie Gan Ma - Fully Assessed Primary Visit Diagnosis:Somatic dysfunction of spine, cervical [M99.01] Other Visit Diagnoses:Somatic dysfunction of spine, thoracic [M99.02] Somatic dysfunction of spine, lumbar [M99.03] Prescriptions as of 10/07/2018 Sig: RANITIDINE 150 MG TABLET Take 1 tablet by mouth twice * X NITROFURANTOIN MONOHYDRATE AND * Take 1 capsule by mouth twice* LORAZEPAM 0.5 MG TABLET Take 1 tablet by mouth once d* Problem List As Of Date 10/07/2018 Noted Resolved Impaired fasting glucose [R73.01] INVALID FOR* ABN GLUCOSE-ANTEPARTUM [O99.810] TENSION HEADACHE [G44.209] INVALID FOR* Insomnia, unspecified [G47.00] INVALID FOR* Routine general medical examination at a health*INVALID FOR*09/25/2013 Class: Chronic More... Routine gynecological examination [Z01.419] INVALID FOR*09/25/2013 Class: Chronic More... Migraine, unspecified, without mention of intra*INVALID FOR* Anxiety [F41.9] INVALID FOR* Elevated blood pressure (not hypertension) [R03*INVALID FOR* Left upper extremity numbness [R20.0] INVALID FOR* Counseling and coordination of care [Z71.89] INVALID FOR*07/09/2015 More... Cervicothoracic somatic dysfunction [M99.01] INVALID FOR* Neck pain [M54.2] INVALID FOR* Muscle tension headache [G44.209] INVALID FOR* Encounter Status:Closed by Venessa MUÑIZ PA-C on 10/07/18 Observed: 10/04/2018 Status: F Source: [place] URINE CULTURE 8:47 PM [facility] [place] REPOSITORY Sp. Request/Comment: - Specimen received in preservative Culture Result - <10,000 CFU/ml Enterococcus --> ABNORMAL ALERT Insignificant colony count. No further workup. --> ABNORMAL ALERT Cephalosporins, clindamycin, and TMP-SMX are not effective for the treatment of enterococcal infections. --> ABNORMAL ALERT <10,000 CFU/ml Normal urogenital sussy Performed By: #### URCUL #### [facility] [address] [place], [place] [address] ECG COMPLETE W Observed: 10/04/2018 Status: F Source: [place] INTERPRETATION 4:46 PM [facility] REPOSITORY NAME : MANUEL HANLEY PID : [id number] : 1980 Gender : Female Race : ORD : [id number] Procedure Date : Oct 04 2018 16:46:39 Edit Date : Oct 09 2018 10:14:03 Diagnosis:NORMAL SINUS RHYTHM . BORDERLINE ECG Confirmed by ALTAGRACIA LOMELI D.O. ([id number]) on 10/09/2018 10:13:42 AM Ventricular Rate : 71 BPM Atrial Rate : 71 BPM P-R Interval : 154 ms QRS Duration : 82 ms Q-T Interval : 390 ms QTC Calculation(Bezet) : 423 ms P [place] : 34 degrees R [place] : -19 degrees T [place] : 0 degrees Test Reason : Location : 185 : [facility] Overread By : ALTAGRACIA LOMELI D.O. Edited By : ALTAGRACIA LOMELI D.O. Referred By : LOCO REN Acquired by : LORIE GAN PROGRESS Observed: 10/04/2018 Status: COMPLETED Source: [place] 4:22 PM [facility] REPOSITORY HNO ID: [id number] Author: Loco Ren Service: (none) Author Type: Physician Type: Progress Notes Filed: 10/04/2018 5:40 PM Note Text: Patient presents with: Flank Pain: left side HPI: Patient presents today for office visit for acute pain. Nursing Notes: Lorie Gan Ma 10/04/2018 4:22 PM Signed Is the patient having any pain? Yes LOCATION: left flank PAIN SCALE: 4 on a scale of 0-10 PAIN CHARACTER: aching, sharp and throbbing DURATION: (How long have you had the pain?) 2 days FREQUENCY: (How often does the pain occur?) occurs intermittently AGGRAVATING FACTORS: eating, or go for a long period of not eating ALLEVIATING FACTORS: no known factors Medications: See medication reconciliation list in [facility] On Sunday she had upper back pain that radiated to the front. She describes it as a heartburn feeling. Feels like a stitch in her side. Not constant. No hx of kidney stones. LMP was last week or week before. No dysuria or frequency. No nausea today. Was nauseated and threw up Wed. No hematuria. No discharge or pelvic pain. No changes in the bowels. No fever or chills. Worse when not eating. Sunday had a pain that felt like heartburn in the back of her chest. No pain into jaw or down the arm. Had pain that lasted all day. No changes with movement. Slightly worse with deep breaths. Exertion made no difference. No belching or burping. No bloody or black stools. Discomfort was mild. No edema. No leg pain. No issues since. Using a lot of advil recently. Has back pain exacerbated by lifting recently. No etoh. MEDICATIONS: Current Outpatient Prescriptions: LORazepam (ATIVAN) 0.5 mg tab Take 1 tablet by mouth once daily as needed for up to 30 days. No current facility-administered medications for this visit. ALLERGIES: ALLERGIES Allergen Reactions - Amoxacillin [Amoxic* Hives - Paxil [Paroxetine H* GI Upset Nausea, vomiting. - Percocet [Oxycodone* Vomiting - Zoloft [Sertraline * Intolerance Nausea, trouble eating PAST MEDICAL HISTORY Diagnosis Date - Abnormal maternal glucose tolerance, antepartum 1995 - Insomnia, unspecified - Myopia - Tension headache PAST SURGICAL HISTORY Procedure Laterality Date - LASIK 04/02/2014 FS OD DVA by Dr Chaves/Dr Fagan attending - LIGATE FALLOPIAN TUBE 2004 Tubal ligation - PAST SURGICAL HISTORY OF age 20 +/- wisdom teeth - PRK 04/02/2014 with [facility] OS DVA by Dr Chaves/Dr Fagan attending FAMILY HISTORY Problem Relation Age of Onset - Diabetes Mother - None Father from ? polimyelitis? (see 04/25/2011) - Cancer Maternal Grandfather unknown primary Social History Marital status: Spouse name: sebas Years of education: Number of children: 2 Occupational History Occupation Employer Comment [employer]* Social History Main Topics Smoking status: Never Smoker Smokeless tobacco: Never Used Alcohol use: Yes Comment: occasion Drug use: No Sexual activity: Yes Partners with: Male control/protection: Tubal Ligation Comment: Monogamous with of 8 years. Reviewed current medications, allergies, past medical history, surgical history, family history and social history today. REVIEW OF SYSTEMS All other reviewed and negative other than HPI. HEALTH MAINTENANCE: Reviewed health maintenance issues today and recommended the following in detail. DTAP,TDAP,TD(2 - Td) due on 10/22/2018 VITALS: BP 120/86 Pulse 84 Temp 36.8 ?C (98.3 ?F) (Tympanic) Resp 16 Last 4 Encounter Wt Readings: Date: Wt: 09/16/2018 70.2 kg (154 lb 12.8 oz) 07/23/2018 68.5 kg (151 lb 1.9 oz) 07/09/2018 68.5 kg (151 lb) 06/05/2018 71.2 kg (157 lb) PHYSICAL EXAMINATION: General appearance: Well appearing, alert, in no acute distress, well-hydrated, well nourished. Skin: Skin color, texture, turgor normal, no suspicious rashes or lesions Head: Normocephalic, no masses, lesions, tenderness or abnormalities Back: Normal exam, area of tenderness was along upper back and shoulders bilaterally. Appears to probably have been muscular. Lungs: lungs clear to auscultation. No wheezing, rhonchi, rales Heart: RRR without murmur, gallop, or rubs. No ectopy Abdomen: Negative findings: no masses palpable, no organomegaly, bowel sounds normal, liver span normal to percussion and spleen non-palpable, Positive findings: mild left upper abd pain. No rebound. Extremities: No deformities, edema, skin discoloration, clubbing or cyanosis. Good capillary refill. No cva tenderness. ASSESSMENT/PLAN: 1. Acute left flank pain - ICD9: 789.09, 338.19, ICD10: R10.9 (primary diagnosis) - send urine for c and s - UA DIP B/O 2. Chest pain, unspecified type - ICD9: 786.50, ICD10: R07.9 Atypical chest pain, symptoms are not consistent with cardiac ischemia due to accompanying GI symptoms possible etiology include GERD Add zantac. - ECG COMPLETE W INTERPRETATION 3. LUQ pain - ICD9: 789.02, ICD10: R10.12 - Add zantac. Red flags for re-assessment reviewed with patient in detail. Avoid nsaids. - CBC + DIFF - COMP METABOLIC PANEL - LIPASE BLD - URINE CULTURE - RANITIDINE 150 MG TABLET 4. Microscopic hematuria - ICD9: 599.72, ICD10: R31.29 - start with macrobid. Recheck urine in two weeks. Consider further work up if persists. - URINE CULTURE - URINALYSIS WITH MICROSCOPIC - NITROFURANTOIN MONOHYDRATE AND MACROCRYSTAL 100 MG ORAL CAP Loco Ren MD RTO in two weeks and prn. CNOV Observed: 10/04/2018 Status: COMPLETED Source: [place] 3:00 PM [facility] RE[facility]ITORY [facility] MANUEL HANLEY ([id number]) 1980 F Date Time Provider Department 10/04/18 3:00 PM [facility] During your visit today, we recorded the following information about you: Temperature Pulse Respiration Blood pressure 98.3 degrees 84/minute 16/minute 120/86 Lorie Gan Ma 10/04/2018 4:22 PM Signed Is the patient having any pain? Yes LOCATION: left flank PAIN SCALE: 4 on a scale of 0-10 PAIN CHARACTER: aching, sharp and throbbing DURATION: (How long have you had the pain?) 2 days FREQUENCY: (How often does the pain occur?) occurs intermittently AGGRAVATING FACTORS: eating, or go for a long period of not eating ALLEVIATING FACTORS: no known factors Medications: See medication reconciliation list in [facility] On Sunday she had upper back pain that radiated to the front. She describes it as a heartburn feeling. Loco Ren MD 10/04/2018 5:40 PM Signed Patient presents with: Flank Pain: left side HPI: Patient presents today for office visit for acute pain. Nursing Notes: Lorie Gan Ma 10/04/2018 4:22 PM Signed Is the patient having any pain? Yes LOCATION: left flank PAIN SCALE: 4 on a scale of 0-10 PAIN CHARACTER: aching, sharp and throbbing DURATION: (How long have you had the pain?) 2 days FREQUENCY: (How often does the pain occur?) occurs intermittently AGGRAVATING FACTORS: eating, or go for a long period of not eating ALLEVIATING FACTORS: no known factors Medications: See medication reconciliation list in [facility] On Sunday she had upper back pain that radiated to the front. She describes it as a heartburn feeling. Feels like a stitch in her side. Not constant. No hx of kidney stones. LMP was last week or week before. No dysuria or frequency. No nausea today. Was nauseated and threw up Sun. No hematuria. No discharge or pelvic pain. No changes in the bowels. No fever or chills. Worse when not eating. Sunday had a pain that felt like heartburn in the back of her chest. No pain into jaw or down the arm. Had pain that lasted all day. No changes with movement. Slightly worse with deep breaths. Exertion made no difference. No belching or burping. No bloody or black stools. Discomfort was mild. No edema. No leg pain. No issues since. Using a lot of advil recently. Has back pain exacerbated by lifting recently. No etoh. MEDICATIONS: Current Outpatient Prescriptions: LORazepam (ATIVAN) 0.5 mg tab Take 1 tablet by mouth once daily as needed for up to 30 days. No current facility-administered medications for this visit. ALLERGIES: ALLERGIES Allergen Reactions - Amoxacillin [Amoxic* Hives - Paxil [Paroxetine H* GI Upset Nausea, vomiting. - Percocet [Oxycodone* Vomiting - Zoloft [Sertraline * Intolerance Nausea, trouble eating PAST MEDICAL HISTORY Diagnosis Date - Abnormal maternal glucose tolerance, antepartum 1995 - Insomnia, unspecified - Myopia - Tension headache PAST SURGICAL HISTORY Procedure Laterality Date - LASIK 04/02/2014 FS OD DVA by Dr Chaves/Dr Fagan attending - LIGATE FALLOPIAN TUBE 2005 Tubal ligation - PAST SURGICAL HISTORY OF age 20 +/- wisdom teeth - PRK 04/02/2014 with [facility] OS DVA by Dr Chaves/Dr Fagan attending FAMILY HISTORY Problem Relation Age of Onset - Diabetes Mother - None Father from ? polimyelitis? (see 04/25/2011) - Cancer Maternal Grandfather unknown primary Social History Marital status: Spouse name: sebas Years of education: Number of children: 2 Occupational History Occupation Employer Comment [employer]* Social History Main Topics Smoking status: Never Smoker Smokeless tobacco: Never Used Alcohol use: Yes Comment: occasion Drug use: No Sexual activity: Yes Partners with: Male control/protection: Tubal Ligation Comment: Monogamous with of 8 years. Reviewed current medications, allergies, past medical history, surgical history, family history and social history today. REVIEW OF SYSTEMS All other reviewed and negative other than HPI. HEALTH MAINTENANCE: Reviewed health maintenance issues today and recommended the following in detail. DTAP,TDAP,TD(2 - Td) due on 10/22/2018 VITALS: BP 120/86 Pulse 84 Temp 36.8 ?C (98.3 ?F) (Tympanic) Resp 16 Last 4 Encounter Wt Readings: Date: Wt: 09/16/2018 70.2 kg (154 lb 12.8 oz) 07/23/2018 68.5 kg (151 lb 1.9 oz) 07/09/2018 68.5 kg (151 lb) 06/05/2018 71.2 kg (157 lb) PHYSICAL EXAMINATION: General appearance: Well appearing, alert, in no acute distress, well-hydrated, well nourished. Skin: Skin color, texture, turgor normal, no suspicious rashes or lesions Head: Normocephalic, no masses, lesions, tenderness or abnormalities Back: Normal exam, area of tenderness was along upper back and shoulders bilaterally. Appears to probably have been muscular. Lungs: lungs clear to auscultation. No wheezing, rhonchi, rales Heart: RRR without murmur, gallop, or rubs. No ectopy Abdomen: Negative findings: no masses palpable, no organomegaly, bowel sounds normal, liver span normal to percussion and spleen non-palpable, Positive findings: mild left upper abd pain. No rebound. Extremities: No deformities, edema, skin discoloration, clubbing or cyanosis. Good capillary refill. No cva tenderness. ASSESSMENT/PLAN: 1. Acute left flank pain - ICD9: 789.09, 338.19, ICD10: R10.9 (primary diagnosis) - send urine for c and s - UA DIP B/O 2. Chest pain, unspecified type - ICD9: 786.50, ICD10: R07.9 Atypical chest pain, symptoms are not consistent with cardiac ischemia due to accompanying GI symptoms possible etiology include GERD Add zantac. - ECG COMPLETE W INTERPRETATION 3. LUQ pain - ICD9: 789.02, ICD10: R10.12 - Add zantac. Red flags for re-assessment reviewed with patient in detail. Avoid nsaids. - CBC + DIFF - COMP METABOLIC PANEL - LIPASE BLD - URINE CULTURE - RANITIDINE 150 MG TABLET 4. Microscopic hematuria - ICD9: 599.72, ICD10: R31.29 - start with macrobid. Recheck urine in two weeks. Consider further work up if persists. - URINE CULTURE - URINALYSIS WITH MICROSCOPIC - NITROFURANTOIN MONOHYDRATE AND MACROCRYSTAL 100 MG ORAL CAP Loco Ren MD RTO in two weeks and prn. Referring Provider: SELF [[id number]] Allergies As of Date: 10/04/2018 Noted Allergy Reaction AMOXACILLIN (AMOXICILLIN) 08/31/2008 4 - Hives PAXIL (PAROXETINE HCL) 10/15/2017 8 - GI Upset Comments: Nausea, vomiting. PERCOCET (OXYCODONE-ACETAMINOPHEN)04/08/2014 11 - Vomiting ZOLOFT (SERTRALINE HCL) 10/15/2017 5 - Intolerance Comments: Nausea, trouble eating Date Reviewed: 10/04/2018 Reviewed by: Lorie Gan Ma - Fully Assessed Reason for Visit: Flank Pain [356] Cmt: left side Primary Visit Diagnosis:Acute left flank pain [R10.9] Other Visit Diagnoses:Chest pain, unspecified type [R07.9] LUQ pain [R10.12] Microscopic hematuria [R31.29] Order(s):UA DIP B/O [[id number]] Order #: [id number] UA DIP, URINE (POC) [[id number]] Order #: [id number] #:[id number] ECG COMPLETE W INTERPRETATION [ECG01] Order #: [id number] FUTURE CBC + DIFF [SQCBCDIF] Order #: [id number] FUTURE COMP METABOLIC PANEL [SQCMP] Order #: [id number] FUTURE LIPASE BLD [SQLIPA] Order #: [id number] FUTURE URINE CULTURE [SQURCUL] Order #: [id number] URINALYSIS WITH MICROSCOPIC [SQUAWMIC] Order #: [id number] FUTURE nitrofurantoin monohydrate and macrocrystal (MACROBID) 100 mg capsuleTake 1 capsule by mouth twice daily with meals for 7 days.Disp: 14 capsuleRfl: 0 ranitidine (ZANTAC) 150 mg tabletTake 1 tablet by mouth twice daily.Disp: 60 tabletRfl: 11 Prescriptions as of 10/04/2018 Sig: LORAZEPAM 0.5 MG TABLET Take 1 tablet by mouth once d* NITROFURANTOIN MONOHYDRATE AND * Take 1 capsule by mouth twice* RANITIDINE 150 MG TABLET Take 1 tablet by mouth twice * Problem List As Of Date 10/04/2018 Noted Resolved Impaired fasting glucose [R73.01] INVALID FOR* ABN GLUCOSE-ANTEPARTUM [O99.810] TENSION HEADACHE [G44.209] INVALID FOR* Insomnia, unspecified [G47.00] INVALID FOR* Routine general medical examination at a health*INVALID FOR*09/25/2013 Class: Chronic More... Routine gynecological examination [Z01.419] INVALID FOR*09/25/2013 Class: Chronic More... Migraine, unspecified, without mention of intra*INVALID FOR* Anxiety [F41.9] INVALID FOR* Elevated blood pressure (not hypertension) [R03*INVALID FOR* Left upper extremity numbness [R20.0] INVALID FOR* Counseling and coordination of care [Z71.89] INVALID FOR*07/09/2015 More... Cervicothoracic somatic dysfunction [M99.01] INVALID FOR* Neck pain [M54.2] INVALID FOR* Muscle tension headache [G44.209] INVALID FOR* Visit Notes: >> Lorie Gan Ma SunOct 04, 2018 3:46 PM Status: Signed Is the patient having any pain? Yes LOCATION: left flank PAIN SCALE: 4 on a scale of 0-10 PAIN CHARACTER: aching, sharp and throbbing DURATION: (How long have you had the pain?) 2 days FREQUENCY: (How often does the pain occur?) occurs intermittently AGGRAVATING FACTORS: eating, or go for a long period of not eating ALLEVIATING FACTORS: no known factors Medications: See medication reconciliation list in [facility] On Sunday she had upper back pain that radiated to the front. She describes it as a heartburn feeling. Prescriptions ordered this encounter Disp Refills Start End NITROFURANTOIN MONOHYDRATE AND MACROCR* 14 c* 0 10/04/2018 10/11/2018 Route: ORAL Sig: Take 1 capsule by mouth twice daily with meals for 7 days. RANITIDINE 150 MG TABLET 60 t* 11 10/04/2018 Route: ORAL Sig: Take 1 tablet by mouth twice daily. Disposition: Return in about 2 weeks (around 10/18/2018). Follow-up and Disposition History Recorded Encounter Status:Closed by LOCO REN MD on 10/04/18 PROGRESS Observed: 10/01/2018 Status: COMPLETED Source: [place] 8:59 AM [facility] REPOSITORY O ID: [id number] Author: Francisco Villagomez Ma Service: (none) Author Type: (none) Type: Progress Notes Filed: 10/01/2018 9:00 AM Note Text: SHY De La Cruz [facility] Care Coordination Note Call to member to update progress in [facility] program. Weight goal to reach between 06/19/19 -08/04/19 of 144 lbs Reminded member of established weight goal, deadline and of the importance of reporting a final documented weight to me. going to lose the weight- will continue to do the same diet and exercise she has in the past continues to limit her pepsi Goal for LDL level is 130 or below (LDL goal is 100 for individuals with Diabetes and/or Coronary Artery Disease) Cholesterol, Total (mg/dL) Date Value 11/21/2012 181 HDL Cholesterol (mg/dL) Date Value 11/21/2012 40 LDL Cholesterol (mg/dL) Date Value 11/21/2012 114 LDL Chol, [place] (mg/dL) Date Value 09/03/2008 78 Triglyceride (mg/dL) Date Value 11/21/2012 133 Is member currently being treated for Hyperlipidemia? No If yes, is lipid panel done annually? No Goal for blood pressure is 140/90 or below. Last 3 Encounter BP Readings: Date: BP: 09/17/2018 102/70 09/16/2018 116/60 08/16/2018 138/82 Is member currently being treated for Hypertension No Has there been a Basic Metabolic Panel done within the last year?No Glucose (mg/dL) Date Value 05/24/2018 102 Potassium (mmol/L) Date Value 05/24/2018 4.4 Sodium (mmol/L) Date Value 05/24/2018 140 Chloride (mmol/L) Date Value 05/24/2018 104 CO2 (mmol/L) Date Value 05/24/2018 26 Creatinine (mg/dL) Date Value 05/24/2018 0.87 BUN (mg/dL) Date Value 05/24/2018 12 Anion Gap (mmol/L) Date Value 05/24/2018 10 Calcium (mg/dL) Date Value 05/24/2018 9.1 Medication Refill Adherence- na HEALTH MAINTENANCE DTAP,TDAP,TD(2 - Td) due on 10/22/2018 Depression Screening- During the last month or since our last conversation, have you often been bothered by feeling down, depressed or hopeless?No During the last month or since our last conversation, have you been bothered by little interest or pleasure in doing things?No (if answer yes, please complete extended depression screening) Asked member to reach out to me with any questions before next call in 12 weeks if needed. Francisco Villagomez Ma October 01, 2018 8:59 AM CNPTOUTREACH Observed: 10/01/2018 Status: COMPLETED Source: [place] 12:00 AM [facility] REPOSITORY Patient Outreach ([id number]) MANUEL HANLEY Gris ([id number]) 1980 F Date Time Provider Department 10/01/18 FRANCISCO VILLAGOMEZ) [facility] During your visit today, we recorded the following information about you: Francisco Villagomez Ma 10/01/2018 9:00 AM Signed SH[facility] De La [facility] Care Coordination Note Call to member to update progress in [facility] program. Weight goal to reach between 06/19/19 -08/04/19 of 144 lbs Reminded member of established weight goal, deadline and of the importance of reporting a final documented weight to me. going to lose the weight- will continue to do the same diet and exercise she has in the past continues to limit her pepsi Goal for LDL level is 130 or below (LDL goal is 100 for individuals with Diabetes and/or Coronary Artery Disease) Cholesterol, Total (mg/dL) Date Value 11/21/2012 181 HDL Cholesterol (mg/dL) Date Value 11/21/2012 40 LDL Cholesterol (mg/dL) Date Value 11/21/2012 114 LDL Chol, [place] (mg/dL) Date Value 09/03/2008 78 Triglyceride (mg/dL) Date Value 11/21/2012 133 Is member currently being treated for Hyperlipidemia? No If yes, is lipid panel done annually? No Goal for blood pressure is 140/90 or below. Last 3 Encounter BP Readings: Date: BP: 09/17/2018 102/70 09/16/2018 116/60 08/16/2018 138/82 Is member currently being treated for Hypertension No Has there been a Basic Metabolic Panel done within the last year?No Glucose (mg/dL) Date Value 05/24/2018 102 Potassium (mmol/L) Date Value 05/24/2018 4.4 Sodium (mmol/L) Date Value 05/24/2018 140 Chloride (mmol/L) Date Value 05/24/2018 104 CO2 (mmol/L) Date Value 05/24/2018 26 Creatinine (mg/dL) Date Value 05/24/2018 0.87 BUN (mg/dL) Date Value 05/24/2018 12 Anion Gap (mmol/L) Date Value 05/24/2018 10 Calcium (mg/dL) Date Value 05/24/2018 9.1 Medication Refill Adherence- na HEALTH MAINTENANCE DTAP,TDAP,TD(2 - Td) due on 10/22/2018 Depression Screening- During the last month or since our last conversation, have you often been bothered by feeling down, depressed or hopeless?No During the last month or since our last conversation, have you been bothered by little interest or pleasure in doing things?No (if answer yes, please complete extended depression screening) Asked member to reach out to me with any questions before next call in 12 weeks if needed. Francisco Villagomez Ma October 01, 2018 8:59 AM Allergies As of Date: 10/01/2018 Noted Allergy Reaction AMOXACILLIN (AMOXICILLIN) 08/31/2008 4 - Hives PAXIL (PAROXETINE HCL) 10/15/2017 8 - GI Upset Comments: Nausea, vomiting. 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 Routine gynecological examination [Z01.419] INVALID FOR*09/25/2013 Priority: B Class: Chronic More... Migraine, unspecified, without mention of intra*INVALID FOR* Priority: A Anxiety [F41.9] INVALID FOR* Priority: A Elevated blood pressure (not hypertension) [R03*INVALID FOR* Priority: A Left upper extremity numbness [R20.0] INVALID FOR* Counseling and coordination of care [Z71.89] INVALID FOR*07/09/2015 More... Cervicothoracic somatic dysfunction [M99.01] INVALID FOR* Neck pain [M54.2] INVALID FOR* Muscle tension headache [G44.209] INVALID FOR* Encounter Status:Closed by FRANCISCO VILLAGOMEZ MA on 10/01/18 CNCO Observed: 09/24/2018 Status: COMPLETED Source: [place] 10:42 AM [facility] REPOSITORY HNO ID: [id number] Author: Mammography Coordinator Service: (none) Author Type: Physician Type: Letter Filed: 09/25/2018 11:31 PM Note Text: September 24, 2018 PID: [id number] Manuel [address] [place] [address] Dear Aislinn Hanley, Your recent breast imaging examination performed on 09/24/2018 showed an area that we believe is probably benign (not cancer). A six month follow-up is recommended to ensure your breast health. Please call [phone] to schedule an appointment for these tests if you have not already done so. Your mammogram demonstrates that you have dense breast tissue, which could hide abnormalities. Dense breast tissue, in and of itself, is a relatively common condition. Therefore, this information is not provided to cause undue concern; rather, it is to raise your awareness and promote discussion with your health care provider regarding the presence of dense breast tissue in addition to other risk factors. Early detection of cancer is very important. We also understand recommendations regarding breast cancer screening are controversial. Please discuss with your primary care provider which strategy is best for you and whether a mammogram is right for you. Your breast images and report will be kept on file here as part of your permanent medical record and are available for your continuing care. Thank you for allowing us to help in meeting your health care needs. Sincerely, Dr. Brar Interpreting Radiologist [facility] (# mo Follow-up) CNCO Observed: 09/24/2018 Status: COMPLETED Source: [place] 10:42 AM [facility] REPOSITORY HNO ID: [id number] Author: Mammography Coordinator Service: (none) Author Type: Physician Type: Letter Filed: 09/25/2018 11:31 PM Note Text: September 24, 2018 PID: [id number] Manuel Hanley [address] [place] [address] Dear Ms. Hanley, Your recent breast imaging examination performed on 09/24/2018 showed an area that we believe is probably benign (not cancer). A six month follow-up is recommended to ensure your breast health. Please call [phone] to schedule an appointment for these tests if you have not already done so. Your mammogram demonstrates that you have dense breast tissue, which could hide abnormalities. Dense breast tissue, in and of itself, is a relatively common condition. Therefore, this information is not provided to cause undue concern; rather, it is to raise your awareness and promote discussion with your health care provider regarding the presence of dense breast tissue in addition to other risk factors. Early detection of cancer is very important. We also understand recommendations regarding breast cancer screening are controversial. Please discuss with your primary care provider which strategy is best for you and whether a mammogram is right for you. Your breast images and report will be kept on file here as part of your permanent medical record and are available for your continuing care. Thank you for allowing us to help in meeting your health care needs. Sincerely, Dr. Brar Interpreting Radiologist [facility] (# mo Follow-up) PROGRESS Observed: 09/24/2018 Status: COMPLETED Source: [place] 10:41 AM [facility] REPOSITORY HNO ID: [id number] Author: Alia Birch Rdms Service: (none) Author Type: (none) Type: Progress Notes Filed: 09/24/2018 10:41 AM Note Text: Radiology Service Progress Note PATIENT NAME: Manuel Hanley DATE OF SERVICE: September 24, 2018 TIME: 10:41 AM PATIENT IDENTITY VERIFICATION COMPLETED USING TWO (2) METHODS: Patient confirmed name verbally and Date of . PATIENT GENDER DATA: Female. status: : No status: NO. PATIENT RELEVANT IMPLANT DATA REVIEWED: Not Applicable RADIOLOGY DEPARTMENT: Ultrasound PERIPHERAL IV DATA: Not applicable SIGNED BY: Alia Birch Rdms September 24, 2018 10:41 AM [facility] US BREAST LTD Observed: 09/24/2018 Status: F Source: [place] RT 10:27 AM [facility] REPOSITORY * * *Final Report* * * DATE OF EXAM: Sep 24 2018 10:27AM [facility] [id number] - [facility] US BREAST LTD RT / PROCEDURE REASON: Breast pain, right * * * * Physician Interpretation * * * * #[id number] - [facility] DIAGNOSTIC RT #[id number] - [facility] US BREAST LTD RT UNILATERAL RIGHT DIGITAL DIAGNOSTIC MAMMOGRAM WITH CAD: 09/24/2018 HISTORY: Palpable Lump Or Mass In Breast /priors available for comparison Breast Pain, Right. RESULT: TECHNIQUE: The study was acquired using full field digital technology and interpreted from soft copy. Current study was also evaluated with a Computer Aided Detection (CAD). Comparison is made to exams dated: 01/09/2017 mammogram, 11/13/2013 mammogram, 11/13/2013 ultrasound, and 01/09/2017 [facility]. The tissue of right breast is extremely dense, which lowers the sensitivity of mammography. There is a stable benign lymph node in the right breast in the upper outer quadrant. There is a nodule in the right breast anterior depth central to the nipple seen on the mediolateral oblique view only. There also is a benign lymph node in the right breast upper outer aspect posterior depth. No other significant masses or calcifications are seen in the breast. IMPRESSION: INCOMPLETE: NEEDS ADDITIONAL IMAGING EVALUATION The nodule in the right breast anterior depth central to the nipple seen on the mediolateral oblique view only is indeterminate. An ultrasound is recommended. There is no abnormality seen in the right breast to correspond with the area of clinical concern. LIMITED ULTRASOUND OF RIGHT BREAST: 09/24/2018 RESULT: Comparison is made to exams dated: 01/09/2017 mammogram, 11/13/2013 mammogram, 11/13/2013 ultrasound, and 01/09/2017 [facility]. Color flow and real-time ultrasound of the right breast upper outer quadrant were performed. Guillen scale images of the real-time examination were reviewed. There is a 6 mm oval cyst in the right breast at 10 o'clock anterior depth. This oval cyst is of mixed echogenicity. IMPRESSION: PROBABLY BENIGN - SHORT TERM INTERVAL FOLLOW-UP RECOMMENDED The 6 mm oval cyst in the right breast is probably benign. A follow-up right mammogram and an ultrasound in 6 months is recommended to demonstrate stability. SUMMARY: Cannot be certain the mammographic findings and ultrasound finding correspond to same lesion. Therefore, 6 mo follow up recommended. Sin enriquez/leland:09/24/2018 10:42:12 Multiple national specialty organizations have released breast cancer screening guidelines for women at average risk for developing breast cancer - guidelines that are based on both evidence and opinion, yet differ on when to start and how often to screen for breast cancer. With representation from Breast Imaging, Internal Medicine, Women's Health, Family Medicine, and Medical/Surgical Oncology, the [facility] has carefully reviewed the data and reached the following consensus: 1) All women should engage in shared decision-making with their providers to decide when to start and how often to screen; 2) All women should have the opportunity to start screening mammography at age 40; 3) For women ages 45-55, we recommend annual screening mammograms; 4) For women ages 55 and over, we support both the transition from an annual to a biennial interval if this aligns more with patient's values and preferences, or continuation with annual screening; 5) All women should discuss with their providers when to stop screening mammograms. Residential Sales Rep(s): Lauren Ruiz, RT(R)(M), [facility]; Alia Birch, [facility] letter sent: # Mo FU OVERALL STUDY BIRADS: 3 Probably benign finding - short term interval follow-up recommended Glaze Maker: Leland Transcribe Date/Time: Sep 24 2018 9:35A Dictated by : SIN BRAR DO This examination was interpreted and the report reviewed and electronically signed by: SIN BRAR DO on Sep 24 2018 10:42AM EST [id number] [facility] Observed: 09/24/2018 Status: F Source: [place] 9:54 AM [facility] REPOSITORY * * *Final Report* * * DATE OF EXAM: Sep 24 2018 9:54AM DAVID [id number] - [facility] RT / PROCEDURE REASON: Lump or mass in breast * * * * Physician Interpretation * * * * RESULT: #[id number] - [facility] RT #[id number] - [facility] BREAST LTD RT UNILATERAL RIGHT DIGITAL DIAGNOSTIC MAMMOGRAM WITH CAD: 09/24/2018 HISTORY: Palpable Lump Or Mass In Breast /priors available for comparison Breast Pain, Right. RESULT: TECHNIQUE: The study was acquired using full field digital technology and interpreted from soft copy. Current study was also evaluated with a Computer Aided Detection (CAD). Comparison is made to exams dated: 01/09/2017 mammogram, 11/13/2013 mammogram, 11/13/2013 ultrasound, and 01/09/2017 ultrasound - [facility]. The tissue of right breast is extremely dense, which lowers the sensitivity of mammography. There is a stable benign lymph node in the right breast in the upper outer quadrant. There is a nodule in the right breast anterior depth central to the nipple seen on the mediolateral oblique view only. There also is a benign lymph node in the right breast upper outer aspect posterior depth. No other significant masses or calcifications are seen in the breast. IMPRESSION: INCOMPLETE: NEEDS ADDITIONAL IMAGING EVALUATION The nodule in the right breast anterior depth central to the nipple seen on the mediolateral oblique view only is indeterminate. An ultrasound is recommended. There is no abnormality seen in the right breast to correspond with the area of clinical concern. LIMITED ULTRASOUND OF RIGHT BREAST: 09/24/2018 RESULT: Comparison is made to exams dated: 01/09/2017 mammogram, 11/13/2013 mammogram, 11/13/2013 ultrasound, and 01/09/2017 [facility]. Color flow and real-time ultrasound of the right breast upper outer quadrant were performed. Guillen scale images of the real-time examination were reviewed. There is a 6 mm oval cyst in the right breast at 10 o'clock anterior depth. This oval cyst is of mixed echogenicity. IMPRESSION: PROBABLY BENIGN - SHORT TERM INTERVAL FOLLOW-UP RECOMMENDED The 6 mm oval cyst in the right breast is probably benign. A follow-up right mammogram and an ultrasound in 6 months is recommended to demonstrate stability. SUMMARY: Cannot be certain the mammographic findings and ultrasound finding correspond to same lesion. Therefore, 6 mo follow up recommended. Sin enriquez/leland:09/24/2018 10:42:12 Multiple national specialty organizations have released breast cancer screening guidelines for women at average risk for developing breast cancer - guidelines that are based on both evidence and opinion, yet differ on when to start and how often to screen for breast cancer. With representation from Breast Imaging, Internal Medicine, Women's Health, Family Medicine, and Medical/Surgical Oncology, the [facility] has carefully reviewed the data and reached the following consensus: 1) All women should engage in shared decision-making with their providers to decide when to start and how often to screen; 2) All women should have the opportunity to start screening mammography at age 40; 3) For women ages 45-55, we recommend annual screening mammograms; 4) For women ages 55 and over, we support both the transition from an annual to a biennial interval if this aligns more with patient's values and preferences, or continuation with annual screening; 5) All women should discuss with their providers when to stop screening mammograms. Residential Sales Rep(s): RT Lety(R)(M), [facility]; Alia Birch, [facility] letter sent: # Mo FU OVERALL STUDY BIRADS: 3 Probably benign finding - short term interval follow-up recommended Glaze Maker: Leland Transcridominga Date/Time: Sep 24 2018 9:35A Dictated by: SIN BRAR DO This examination was interpreted and the report reviewed and electronically signed by: SIN BRAR DO on Sep 24 2018 10:42AM EST [id number] PROGRESS Observed: 09/24/2018 Status: COMPLETED Source: [place] 9:33 AM [facility] REPOSITORY HNO ID: [id number] Author: Macy Blanchard Service: (none) Author Type: (none) Type: Progress Notes Filed: 09/24/2018 10:20 AM Note Text: Radiology Service Progress Note PATIENT NAME: Manuel Hanley DATE OF SERVICE: September 24, 2018 TIME: 9:33 AM PATIENT IDENTITY VERIFICATION COMPLETED USING TWO (2) METHODS: Patient confirmed name verbally and Date of . PATIENT GENDER DATA: Female. status: : No status: NO. PATIENT RELEVANT IMPLANT DATA REVIEWED: Not Applicable RADIOLOGY DEPARTMENT: [facility] Right diag mammogram PERIPHERAL IV DATA: Not applicable SIGNED BY: Macy Blanchard September 24, 2018 9:33 AM PROGRESS Observed: 09/17/2018 Status: COMPLETED Source: [place] 9:09 AM [facility] [place] REPOSITORY HNO ID: [id number] Author: Venessa Abel (Esperanza) Antonino Service: (none) Author Type: Physician Blindstitch Hemmer Type: Progress Notes Filed: 09/17/2018 9:22 AM Note Text: 38 year old female with c/o neck and upper back pain chronic. Here for OMT. HISTORIES FAMILY HISTORY Problem Relation Age of Onset - Diabetes Mother - None Father from ? polimyelitis? (see 04/25/2011) - Cancer Maternal Grandfather unknown primary PAST MEDICAL HISTORY Diagnosis Date - Abnormal maternal glucose tolerance, antepartum 1995 - Insomnia, unspecified - Myopia - Tension headache PAST SURGICAL HISTORY Procedure Laterality Date - LASIK 04/02/2014 FS OD DVA by Dr Chaves/Dr Fagan attending - LIGATE FALLOPIAN TUBE 2004 Tubal ligation - PAST SURGICAL HISTORY OF age 20 +/- wisdom teeth - PRK 04/02/2014 with [facility] OS DVA by Dr Chaves/Dr Fagan attending Social History Marital status: Spouse name: sebas Years of education: Number of children: 2 Occupational History Occupation Employer Comment [employer]* Social History Main Topics Smoking status: Never Smoker Smokeless tobacco: Never Used Alcohol use: Yes Comment: occasion Drug use: No Sexual activity: Yes Partners with: Male control/protection: Tubal Ligation Comment: Monogamous with of 8 years. ACTIVE PROBLEM LIST Impaired Fasting Glucose Abnormal Maternal Glucose Tolerance, Antepartum Tension Headache Insomnia, Unspecified Migraine, Unspecified, Without Mention of Intractable Migraine Without Mention of Status Migrainosus Anxiety Elevated Blood Pressure (Not Hypertension) Left Upper Extremity Numbness Cervicothoracic Somatic Dysfunction Neck Pain Muscle Tension Headache Current Outpatient Prescriptions: LORAZEPAM ORAL Take by mouth as needed. Disp: Rfl: No current facility-administered medications for this visit. There are no preventive care reminders to display for this patient. EXAM: BP 102/70 (BP Site: Right Arm, BP Position: Sitting, BP Cuff Size: Regular Adult) Pulse 68 Resp 16 LMP 08/26/2018 Pleasant Adult woman in no acute distress. Alert and oriented all spheres. Normal affect and cognition. Speech normal. No deficits to learning or comprehension. Skin warm, dry, pink to lips and nailbeds. Normal turgor. Respirations regular and unlabored. Mild cervical restrictions, TTPS Extrem: no clubbing, cyanosis, edema. Extremities are warm and pink with prompt capillary refill. OMT: myofascial release to TTPs, HVLA to cervical and thoracic segments. ASSESSMENT/PLAN: 1. Cervicothoracic somatic dysfunction - ICD9: 739.1, ICD10: M99.01 Ice/ moist heat, lineaments, OTC analgesics as needed,. Stretching and posture reviewed. F/U prn Venessa Muñiz PA-C CNOV Observed: 09/17/2018 Status: COMPLETED Source: [place] 9:00 AM [facility] REPOSITORY [facility]UEL [facility]AN[facility] ([id number]) 1980 F Date Time Provider Department 09/17/18 9:00 AM Venessa MUÑIZ) [facility] During your visit today, we recorded the following information about you: Pulse Respiration Blood pressure 68/minute 16/minute 102/70 Venessa Muñiz PA-C 09/17/2018 9:22 AM Signed 38 year old female with c/o neck and upper back pain chronic. Here for OMT. HISTORIES FAMILY HISTORY Problem Relation Age of Onset - Diabetes Mother - None Father from ? polimyelitis? (see 04/25/2011) - Cancer Maternal Grandfather unknown primary PAST MEDICAL HISTORY Diagnosis Date - Abnormal maternal glucose tolerance, antepartum 1995 - Insomnia, unspecified - Myopia - Tension headache PAST SURGICAL HISTORY Procedure Laterality Date - LASIK 04/02/2014 FS OD DVA by Dr Chaves/Dr Fagan attending - LIGATE FALLOPIAN TUBE 2005 Tubal ligation - PAST SURGICAL HISTORY OF age 20 +/- wisdom teeth - PRK 04/02/2014 with [facility] OS DVA by Dr Chaves/Dr Fagan attending Social History Marital status: Spouse name: sebas Years of education: Number of children: 2 Occupational History Occupation Employer Comment [employer]* Social History Main Topics Smoking status: Never Smoker Smokeless tobacco: Never Used Alcohol use: Yes Comment: occasion Drug use: No Sexual activity: Yes Partners with: Male control/protection: Tubal Ligation Comment: Monogamous with of 8 years. ACTIVE PROBLEM LIST Impaired Fasting Glucose Abnormal Maternal Glucose Tolerance, Antepartum Tension Headache Insomnia, Unspecified Migraine, Unspecified, Without Mention of Intractable Migraine Without Mention of Status Migrainosus Anxiety Elevated Blood Pressure (Not Hypertension) Left Upper Extremity Numbness Cervicothoracic Somatic Dysfunction Neck Pain Muscle Tension Headache Current Outpatient Prescriptions: LORAZEPAM ORAL Take by mouth as needed. Disp: Rfl: No current facility-administered medications for this visit. There are no preventive care reminders to display for this patient. EXAM: BP 102/70 (BP Site: Right Arm, BP Position: Sitting, BP Cuff Size: Regular Adult) Pulse 68 Resp 16 LMP 08/26/2018 Pleasant Adult woman in no acute distress. Alert and oriented all spheres. Normal affect and cognition. Speech normal. No deficits to learning or comprehension. Skin warm, dry, pink to lips and nailbeds. Normal turgor. Respirations regular and unlabored. Mild cervical restrictions, TTPS Extrem: no clubbing, cyanosis, edema. Extremities are warm and pink with prompt capillary refill. OMT: myofascial release to TTPs, HVLA to cervical and thoracic segments. ASSESSMENT/PLAN: 1. Cervicothoracic somatic dysfunction - ICD9: 739.1, ICD10: M99.01 Ice/ moist heat, lineaments, OTC analgesics as needed,. Stretching and posture reviewed. F/U prn M Colten Muñiz PA-C Referring Provider: SELF [[id number]] Allergies As of Date: 09/17/2018 Noted Allergy Reaction AMOXACILLIN (AMOXICILLIN) 08/31/2008 4 - Hives PAXIL (PAROXETINE HCL) 10/15/2017 8 - GI Upset Comments: Nausea, vomiting. PERCOCET (OXYCODONE-ACETAMINOPHEN)04/08/2014 11 - Vomiting ZOLOFT (SERTRALINE HCL) 10/15/2017 5 - Intolerance Comments: Nausea, trouble eating Date Reviewed: 09/17/2018 Reviewed by: Chayito Bal LPN - Fully Assessed Reason for Visit: Muscle Aches [268] Cmt: back AND shoulders Primary Visit Diagnosis:Cervicothoracic somatic dysfunction [M99.01] Prescriptions as of 09/17/2018 Sig: LORAZEPAM ORAL Take by mouth as needed. Problem List As Of Date 09/17/2018 Noted Resolved Impaired fasting glucose [R73.01] INVALID FOR* Priority: A ABN GLUCOSE-ANTEPARTUM [O99.810] TENSION HEADACHE [G44.209] INVALID FOR* Insomnia, unspecified [G47.00] INVALID FOR* Priority: B Routine general medical examination at a health*INVALID FOR*09/25/2013 Priority: A Class: Chronic More... Routine gynecological examination [Z01.419] INVALID FOR*09/25/2013 Priority: B Class: Chronic More... Migraine, unspecified, without mention of intra*INVALID FOR* Priority: A Anxiety [F41.9] INVALID FOR* Priority: A Elevated blood pressure (not hypertension) [R03*INVALID FOR* Priority: A Left upper extremity numbness [R20.0] INVALID FOR* Counseling and coordination of care [Z71.89] INVALID FOR*07/09/2015 More... Cervicothoracic somatic dysfunction [M99.01] INVALID FOR* Neck pain [M54.2] INVALID FOR* Muscle tension headache [G44.209] INVALID FOR* Encounter Status:Closed by Venessa MUÑIZ PA-C on 09/17/18 CNOV Observed: 09/16/2018 Status: COMPLETED Source: [place] 9:15 AM [facility] REPOSITORY Office Visit ([facility]) MANUEL HANLEY ([id number]) 1980 F Date Time Provider Department 09/16/18 9:15 AM JENNA FRASER (PAULA) [facility] During your visit today, we recorded the following information about you: Blood pressure Weight Last Period 116/60 70.2 kg 08/26/18 Jenna Fraser APRN.CNP 09/16/2018 9:29 AM Signed Manuel Gris Hanley is a 38 year old Obstetric History T0 L2 SAB0 TAB0 Ectopic0 Multiple0 Live Births0 who presents with pain in the right breast. Pain in the right breast started a few weeks ago around her menses time but it has not gone away and she was just concerned about it. Her history includes: fever - no, chills - no. OBJECTIVE: BREASTS: Symmetrical to inspection., No dimpling or skin changes., Normal nipples without discharge., No axillary lymphadenopathy., Positive findings: nodule - 2 cm, oval, rubbery, mobile, tender and 3-4 cm from the nipple in the 10 o'clock position located Right upper outer quadrant. IMPRESSION: Mass in the right breast Fibrocystic change the right breast PLAN: Diagnostic mammogram Breast ultrasound of the right breast I have reviewed and updated past medical and surgical history, medications and allergies. Jenna Fraser APRN.AIRPLANE CABIN ATTENDANT Referring Provider: SELF [200] Allergies As of Date: 09/16/2018 Noted Allergy Reaction AMOXACILLIN (AMOXICILLIN) 08/31/2008 4 - Hives PAXIL (PAROXETINE HCL) 10/15/2017 8 - GI Upset Comments: Nausea, vomiting. PERCOCET (OXYCODONE-ACETAMINOPHEN)04/08/2014 11 - Vomiting ZOLOFT (SERTRALINE HCL) 10/15/2017 5 - Intolerance Comments: Nausea, trouble eating Date Reviewed: 09/16/2018 Reviewed by: Juany Guzman - Fully Assessed Reason for Visit: Breast Problem [16] Primary Visit Diagnosis:Breast pain, right [N64.4] Other Visit Diagnosis:Lump or mass in breast [N63.0] Order(s): BREAST LTD RT [[id number]] Order #: [id number] FUTURE [facility] BILAT [[id number]] Order #: [id number] FUTURE Problem List As Of Date 09/16/2018 Noted Resolved Impaired fasting glucose [R73.01] INVALID FOR* Priority: A ABN GLUCOSE-ANTEPARTUM [O99.810] TENSION HEADACHE [G44.209] INVALID FOR* Insomnia, unspecified [G47.00] INVALID FOR* Priority: B Routine general medical examination at a health*INVALID FOR*09/25/2013 Priority: A Class: Chronic More... Routine gynecological examination [Z01.419] INVALID FOR*09/25/2013 Priority: B Class: Chronic More... Migraine, unspecified, without mention of intra*INVALID FOR* Priority: A Anxiety [F41.9] INVALID FOR* Priority: A Elevated blood pressure (not hypertension) [R03*INVALID FOR* Priority: A Left upper extremity numbness [R20.0] INVALID FOR* Counseling and coordination of care [Z71.89] INVALID FOR*07/09/2015 More... Cervicothoracic somatic dysfunction [M99.01] INVALID FOR* Neck pain [M54.2] INVALID FOR* Muscle tension headache [G44.209] INVALID FOR* Medications Discontinued During This Encounter doxycycline monohydrate (MONODOX) 10* 20 c* 0 07/19/2018 09/16/2018 Route: ORAL Sig: Take 1 capsule by mouth twice daily. Patient not taking: Reported on 09/16/2018 Disc: Reason for discontinue is not on file. doxycycline monohydrate 100 mg tablet 20 t* 0 08/16/2018 09/16/2018 Route: ORAL Sig: Take 1 tablet by mouth twice daily. Patient not taking: Reported on 09/16/2018 Disc: Reason for discontinue is not on file. nystatin (NYSTOP) powder 1 Krishna* 2 04/30/2018 09/16/2018 Route: TOPICAL Sig: Apply 1 application to affected area four times daily. Patient not taking: Reported on 09/16/2018 Disc: Reason for discontinue is not on file. Promethazine-DM (PHENERGAN-DM) 6.25-* 120 * 0 07/19/2018 09/16/2018 Route: ORAL Sig: Take 5 mL by mouth four times daily as needed. Patient not taking: Reported on 09/16/2018 Disc: Reason for discontinue is not on file. ranitidine (ZANTAC) 150 mg tablet 90 t* 1 04/22/2018 09/16/2018 Route: ORAL Sig: Take 1 tablet by mouth daily at bedtime. Patient not taking: Reported on 09/16/2018 Disc: Reason for discontinue is not on file. Encounter Status:Closed by JENNA FRASER on 09/16/18 PROGRESS Observed: 09/16/2018 Status: COMPLETED Source: [place] 9:11 AM [facility] REPOSITORY HNO ID: [id number] Author: Jenna Fraser Service: (none) Author Type: Nurse Practitioner Type: Progress Notes Filed: 09/16/2018 9:29 AM Note Text: Manuel Hanley is a 38 year old Obstetric History T0 L2 SAB0 TAB0 Ectopic0 Multiple0 Live Births0 who presents with pain in the right breast. Pain in the right breast started a few weeks ago around her menses time but it has not gone away and she was just concerned about it. Her history includes: fever - no, chills - no. OBJECTIVE: BREASTS: Symmetrical to inspection., No dimpling or skin changes., Normal nipples without discharge., No axillary lymphadenopathy., Positive findings: nodule - 2 cm, oval, rubbery, mobile, tender and 3-4 cm from the nipple in the 10 o'clock position located Right upper outer quadrant. IMPRESSION: Mass in the right breast Fibrocystic change the right breast PLAN: Diagnostic mammogram Breast ultrasound of the right breast I have reviewed and updated past medical and surgical history, medications and allergies. Jenna Fraser APRN.AIRPLANE CABIN ATTENDANT PROGRESS Observed: 08/16/2018 Status: COMPLETED Source: [place] 4:16 PM [facility] [place] REPOSITORY [facility] ID: [id number] Author: Venessa Abel (Jorge AC) Antonino Service: (none) Author Type: Physician Blindstitch Hemmer Type: Progress Notes Filed: 08/16/2018 7:37 PM Note Text: 38 year old female with c/o 1. 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 2. Recurrence of neck pain and shoulder pain, upper back pain. Here for OMT. No numbness daily, radiating pain. HISTORIES FAMILY HISTORY Problem Relation Age of Onset - Diabetes Mother - None Father from ? polimyelitis? (see 04/25/2011) - Cancer Maternal Grandfather unknown primary PAST MEDICAL HISTORY Diagnosis Date - Abnormal maternal glucose tolerance, antepartum 1995 - Insomnia, unspecified - Myopia - Tension headache PAST SURGICAL HISTORY Procedure Laterality Date - LASIK 04/02/2014 FS OD DVA by Dr Chaves/Dr Fagan attending - LIGATE FALLOPIAN TUBE 2005 Tubal ligation - PAST SURGICAL HISTORY OF age 20 +/- wisdom teeth - PRK 04/02/2014 with [facility] OS DVA by Dr Chaves/Dr Fagan attending Social History Marital status: Spouse name: sebas Years of education: Number of children: 2 Occupational History Occupation Employer Comment [employer]* Social History Main Topics Smoking status: Never Smoker Smokeless tobacco: Never Used Alcohol use: Yes Comment: occasion Drug use: No Sexual activity: Yes Partners with: Male control/protection: Tubal Ligation Comment: Monogamous with of 8 years. ACTIVE PROBLEM LIST Impaired Fasting Glucose Abnormal Maternal Glucose Tolerance, Antepartum Tension Headache Insomnia, Unspecified Migraine, Unspecified, Without Mention of Intractable Migraine Without Mention of Status Migrainosus Anxiety Elevated Blood Pressure (Not Hypertension) Left Upper Extremity Numbness Cervicothoracic Somatic Dysfunction Neck Pain Muscle Tension Headache Current Outpatient Prescriptions: doxycycline monohydrate (MONODOX) 100 mg capsule Take 1 capsule by mouth twice daily. Disp: 20 capsule Rfl: 0 Promethazine-DM (PHENERGAN-DM) 6.25-15 mg/5 mL syrup Take 5 mL by mouth four times daily as needed. Disp: 120 mL Rfl: 0 nystatin (NYSTOP) powder Apply 1 application to affected area four times daily. Disp: 1 Bottle Rfl: 2 ranitidine (ZANTAC) 150 mg tablet Take 1 tablet by mouth daily at bedtime. Disp: 90 tablet Rfl: 1 No current facility-administered medications for this visit. INFLUENZA(1) due on 07/06/2018 EXAM: BP 138/82 Pulse 64 Resp 16 Pleasant Adult woman in no acute distress. Alert and oriented all spheres. Normal affect and cognition. Speech normal. No deficits to learning or comprehension. Skin warm, dry, pink to lips and nailbeds. Normal turgor. Respirations regular and unlabored. Neck is supple with mild limitations in lateral bending and rotation particularly to the right with pain on left. Patient does have significant tender trigger points in the neck and shoulders. Also upper back. Extrem: no clubbing, cyanosis, edema. Extremities are warm and pink with prompt capillary refill. Right thumb with moderate second- degree burn over most of dorsal surface.. Does appear red and cracked with some erythema surrounding. OMT: Myofascial release to trigger points, HVLA to cervical thoracic segments with marked improvement. ASSESSMENT/PLAN: 1. Burn, thumb, second degree, right, initial encounter - ICD9: 944.22, ICD10: T23.211A (primary diagnosis) Doxycycline 5-10 days until improved. Keep the area covered with a petroleum-based products such as bacitracin to avoid cracking and a hold moisture. Follow-up if not improving or worsening. 3 2. Cervicothoracic somatic dysfunction - ICD9: 739.1, ICD10: M99.01 Follow-up as needed for OMT. Continue stretching. Venessa Muñiz PA-C CNOV Observed: 08/16/2018 Status: COMPLETED Source: [place] 2:20 PM [facility] REPOSITORY Office Visit ([facility]) MANUEL HANLEY ([id number]) 1980 F Date Time Provider Department 08/16/18 2:20 PM Venessa MUÑIZ) [facility] During your visit today, we recorded the following information about you: Pulse Respiration Blood pressure 64/minute 16/minute 138/82 Venessa Muñiz PA-C 08/16/2018 7:37 PM Signed 38 year old female with c/o 1. 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 2. Recurrence of neck pain and shoulder pain, upper back pain. Here for OMT. No numbness daily, radiating pain. HISTORIES FAMILY HISTORY Problem Relation Age of Onset - Diabetes Mother - None Father from ? polimyelitis? (see 04/25/2011) - Cancer Maternal Grandfather unknown primary PAST MEDICAL HISTORY Diagnosis Date - Abnormal maternal glucose tolerance, antepartum 1995 - Insomnia, unspecified - Myopia - Tension headache PAST SURGICAL HISTORY Procedure Laterality Date - LASIK 04/02/2014 FS OD DVA by Dr Chaves/Dr Fagan attending - LIGATE FALLOPIAN TUBE 2005 Tubal ligation - PAST SURGICAL HISTORY OF age 20 +/- wisdom teeth - PRK 04/02/2014 with [facility] OS DVA by Dr Chaves/Dr Fagan attending Social History Marital status: Spouse name: sebas Years of education: Number of children: 2 Occupational History Occupation Employer Comment [employer] Social History Main Topics Smoking status: Never Smoker Smokeless tobacco: Never Used Alcohol use: Yes Comment: occasion Drug use: No Sexual activity: Yes Partners with: Male control/protection: Tubal Ligation Comment: Monogamous with of 8 years. ACTIVE PROBLEM LIST Impaired Fasting Glucose Abnormal Maternal Glucose Tolerance, Antepartum Tension Headache Insomnia, Unspecified Migraine, Unspecified, Without Mention of Intractable Migraine Without Mention of Status Migrainosus Anxiety Elevated Blood Pressure (Not Hypertension) Left Upper Extremity Numbness Cervicothoracic Somatic Dysfunction Neck Pain Muscle Tension Headache Current Outpatient Prescriptions: doxycycline monohydrate (MONODOX) 100 mg capsule Take 1 capsule by mouth twice daily. Disp: 20 capsule Rfl: 0 Promethazine-DM (PHENERGAN-DM) 6.25-15 mg/5 mL syrup Take 5 mL by mouth four times daily as needed. Disp: 120 mL Rfl: 0 nystatin (NYSTOP) powder Apply 1 application to affected area four times daily. Disp: 1 Bottle Rfl: 2 ranitidine (ZANTAC) 150 mg tablet Take 1 tablet by mouth daily at bedtime. Disp: 90 tablet Rfl: 1 No current facility-administered medications for this visit. INFLUENZA(1) due on 07/06/2018 EXAM: BP 138/82 Pulse 64 Resp 16 Pleasant Adult woman in no acute distress. Alert and oriented all spheres. Normal affect and cognition. Speech normal. No deficits to learning or comprehension. Skin warm, dry, pink to lips and nailbeds. Normal turgor. Respirations regular and unlabored. Neck is supple with mild limitations in lateral bending and rotation particularly to the right with pain on left. Patient does have significant tender trigger points in the neck and shoulders. Also upper back. Extrem: no clubbing, cyanosis, edema. Extremities are warm and pink with prompt capillary refill. Right thumb with moderate second-degree burn over most of dorsal surface.. Does appear red and cracked with some erythema surrounding. OMT: Myofascial release to trigger points, HVLA to cervical thoracic segments with marked improvement. ASSESSMENT/PLAN: 1. Burn, thumb, second degree, right, initial encounter - ICD9: 944.22, ICD10: T23.211A (primary diagnosis) Doxycycline 5-10 days until improved. Keep the area covered with a petroleum-based products such as bacitracin to avoid cracking and a hold moisture. Follow-up if not improving or worsening. 3 2. Cervicothoracic somatic dysfunction - ICD9: 739.1, ICD10: M99.01 Follow-up as needed for OMT. Continue stretching. ESPERANZA De La Cruz PA-C 08/16/2018 4:26 PM Signed Cleanse orourke lightly with soap and water twice a day followed by Bacitracin (Polysporin) ointment available OTC. Covered any blistered or open areas with a bulky gauze dressing until areas have dried or scabbed over. You may use Ibuprofen 600mg q6-8h with food routinely until pain is fully resolved, then prn. Ibuprofen can cause stomach symptoms including ulceration, bleeding, nausea, pain, and diarrhea. Make sure to take it with food. If you are known to have allergy to anti-inflamatories medications, or have known kidney disease, make sure we know this before you take the medication. If any unusual pain, swelling, red streaks, pus, fever or other signs of worsening infection, call immediately. Recheck in 5-7 days unless well healed by then. Referring Provider: SELF [[id number]] Allergies As of Date: 08/16/2018 Noted Allergy Reaction AMOXACILLIN (AMOXICILLIN) 08/31/2008 4 - Hives PAXIL (PAROXETINE HCL) 10/15/2017 8 - GI Upset Comments: Nausea, vomiting. PERCOCET (OXYCODONE-ACETAMINOPHEN)04/08/2014 11 - Vomiting ZOLOFT (SERTRALINE HCL) 10/15/2017 5 - Intolerance Comments: Nausea, trouble eating Date Reviewed: 08/16/2018 Reviewed by: Angie Seay LPN - Fully Assessed Reason for Visit: Burn [1748] Cmt: right thumb Neck Pain [135] Cmt: adjustment Primary Visit Diagnosis:Burn, thumb, second degree, right, initial encounter [T23.211A] Other Visit Diagnosis:Cervicothoracic somatic dysfunction [M99.01] Order(s):doxycycline monohydrate 100 mg tabletTake 1 tablet by mouth twice daily.Disp: 20 tabletRfl: 0 Prescriptions as of 08/16/2018 Sig: DOXYCYCLINE MONOHYDRATE 100 M* Take 1 tablet by mouth twice * DOXYCYCLINE MONOHYDRATE 100 M* Take 1 capsule by mouth twice* PROMETHAZINE-DM 6.25 MG-15 MG* Take 5 mL by mouth four times* NYSTATIN 100,000 UNIT/GRAM TO* Apply 1 application to affect* RANITIDINE 150 MG TABLET Take 1 tablet by mouth daily * Problem List As Of Date 08/16/2018 Noted Resolved Impaired fasting glucose [R73.01] INVALID FOR* Priority: A ABN GLUCOSE-ANTEPARTUM [O99.810] TENSION HEADACHE [G44.209] INVALID FOR* Insomnia, unspecified [G47.00] INVALID FOR* Priority: B Routine general medical examination at a health*INVALID FOR*09/25/2013 Priority: A Class: Chronic More... Routine gynecological examination [Z01.419] INVALID FOR*09/25/2013 Priority: B Class: Chronic More... Migraine, unspecified, without mention of intra*INVALID FOR* Priority: A Anxiety [F41.9] INVALID FOR* Priority: A Elevated blood pressure (not hypertension) [R03*INVALID FOR* Priority: A Left upper extremity numbness [R20.0] INVALID FOR* Counseling and coordination of care [Z71.89] INVALID FOR*07/09/2015 More... Cervicothoracic somatic dysfunction [M99.01] INVALID FOR* Neck pain [M54.2] INVALID FOR* Muscle tension headache [G44.209] INVALID FOR* Other instructions from your clinician: Cleanse orourke lightly with soap and water twice a day followed by Bacitracin (Polysporin) ointment available OTC. Covered any blistered or open areas with a bulky gauze dressing until areas have dried or scabbed over. You may use Ibuprofen 600mg q6-8h with food routinely until pain is fully resolved, then prn. Ibuprofen can cause stomach symptoms including ulceration, bleeding, nausea, pain, and diarrhea. Make sure to take it with food. If you are known to have allergy to anti-inflamatories medications, or have known kidney disease, make sure we know this before you take the medication. If any unusual pain, swelling, red streaks, pus, fever or other signs of worsening infection, call immediately. Recheck in 5-7 days unless well healed by then. Prescriptions ordered this encounter Disp Refills Start End DOXYCYCLINE MONOHYDRATE 100 MG TABLET 20 t* 0 08/16/2018 Route: ORAL Sig: Take 1 tablet by mouth twice daily. Encounter Status:Closed by Venessa MUÑIZ PA-C on 08/16/18 PROGRESS Observed: 07/23/2018 Status: COMPLETED Source: [place] 2:25 PM [facility] REPOSITORY O ID: [id number] Author: Venessa Abel (Esperanza) Antonino Service: (none) Author Type: Physician Blindstitch Hemmer Type: Progress Notes Filed: 07/23/2018 5:20 PM Note Text: 38 year old female with c/o recurrent neck, shoulder and upper back pain. No numbness tingling, loss of sensation or strength. HISTORIES FAMILY HISTORY Problem Relation Age of Onset - Diabetes Mother - None Father from ? polimyelitis? (see 04/25/2011) - Cancer Maternal Grandfather unknown primary PAST MEDICAL HISTORY Diagnosis Date - Abnormal maternal glucose tolerance, antepartum 1995 - Insomnia, unspecified - Myopia - Tension headache PAST SURGICAL HISTORY Procedure Laterality Date - LASIK 04/02/2014 FS OD DVA by Dr Chaves/Dr Fagan attending - LIGATE FALLOPIAN TUBE 2004 Tubal ligation - PAST SURGICAL HISTORY OF age 20 +/- wisdom teeth - PRK 04/02/2014 with [facility] OS DVA by Dr Chaves/Dr Fagan attending Social History Marital status: Spouse name: sebas Years of education: Number of children: 2 Occupational History Occupation Employer Comment [employer] [place] Social History Main Topics Smoking status: Never Smoker Smokeless tobacco: Never Used Alcohol use: Yes Comment: occasion Drug use: No Sexual activity: Yes Partners with: Male control/protection: Tubal Ligation Comment: Monogamous with of 8 years. ACTIVE PROBLEM LIST Impaired Fasting Glucose Abnormal Maternal Glucose Tolerance, Antepartum Tension Headache Insomnia, Unspecified Migraine, Unspecified, Without Mention of Intractable Migraine Without Mention of Status Migrainosus Anxiety Elevated Blood Pressure (Not Hypertension) Left Upper Extremity Numbness Cervicothoracic Somatic Dysfunction Neck Pain Muscle Tension Headache Current Outpatient Prescriptions: doxycycline monohydrate (MONODOX) 100 mg capsule Take 1 capsule by mouth twice daily. Disp: 20 capsule Rfl: 0 Promethazine-DM (PHENERGAN-DM) 6.25-15 mg/5 mL syrup Take 5 mL by mouth four times daily as needed. Disp: 120 mL Rfl: 0 nystatin (NYSTOP) powder Apply 1 application to affected area four times daily. Disp: 1 Bottle Rfl: 2 ranitidine (ZANTAC) 150 mg tablet Take 1 tablet by mouth daily at bedtime. Disp: 90 tablet Rfl: 1 No current facility-administered medications for this visit. INFLUENZA(1) due on 07/06/2018 EXAM: BP 122/84 (BP Site: Right Arm, BP Position: Sitting, BP Cuff Size: Regular Adult) Pulse 68 Resp 16 Wt 68.5 kg (151 lb 1.9 oz) BMI 28.90 kg/m? Pleasant adult woman in no acute distress. Alert and oriented all spheres. Normal affect and cognition. Speech normal. No deficits to learning or comprehension. Skin warm, dry, pink to lips and nailbeds. Normal turgor. Respirations regular and unlabored. TTPs bilateral neck with restricted ROM to right side bending. Extrem: no clubbing, cyanosis, edema. Extremities are warm and pink with prompt capillary refill. OMT: myofascial release, HVLA cervical and thoracic with improvement. ASSESSMENT/PLAN: 1. Cervicothoracic somatic dysfunction - ICD9: 739.1, ICD10: M99.01 Ice/ moist heat, lineaments, OTC analgesics as needed,. Stretching and posture reviewed. F/u prn Venessa Muñiz PA-C CNOV Observed: 07/23/2018 Status: COMPLETED Source: [place] 2:20 PM [facility] REPOSITORY Office Visit ([facility]) MANUEL HANLEY ([id number]) 1980 F Date Time Provider Department 07/23/18 2:20 PM Venessa MUÑIZ) [facility] During your visit today, we recorded the following information about you: Pulse Respiration Blood pressure Weight 68/minute 16/minute 122/84 68.5 kg Venessa Muñiz PA-C 07/23/2018 5:20 PM Signed 38 year old female with c/o recurrent neck, shoulder and upper back pain. No numbness tingling, loss of sensation or strength. HISTORIES FAMILY HISTORY Problem Relation Age of Onset - Diabetes Mother - None Father from ? polimyelitis? (see 04/25/2011) - Cancer Maternal Grandfather unknown primary PAST MEDICAL HISTORY Diagnosis Date - Abnormal maternal glucose tolerance, antepartum 1995 - Insomnia, unspecified - Myopia - Tension headache PAST SURGICAL HISTORY Procedure Laterality Date - LASIK 04/02/2014 FS OD DVA by Dr Chaves/Dr Fagan attending - LIGATE FALLOPIAN TUBE 2004 Tubal ligation - PAST SURGICAL HISTORY OF age 20 +/- wisdom teeth - PRK 04/02/2014 with [facility] OS DVA by Dr Chaves/Dr Fagan attending Social History Marital status: Spouse name: sebas Years of education: Number of children: 2 Occupational History Occupation Employer Comment [employer]* Social History Main Topics Smoking status: Never Smoker Smokeless tobacco: Never Used Alcohol use: Yes Comment: occasion Drug use: No Sexual activity: Yes Partners with: Male control/protection: Tubal Ligation Comment: Monogamous with of 8 years. ACTIVE PROBLEM LIST Impaired Fasting Glucose Abnormal Maternal Glucose Tolerance, Antepartum Tension Headache Insomnia, Unspecified Migraine, Unspecified, Without Mention of Intractable Migraine Without Mention of Status Migrainosus Anxiety Elevated Blood Pressure (Not Hypertension) Left Upper Extremity Numbness Cervicothoracic Somatic Dysfunction Neck Pain Muscle Tension Headache Current Outpatient Prescriptions: doxycycline monohydrate (MONODOX) 100 mg capsule Take 1 capsule by mouth twice daily. Disp: 20 capsule Rfl: 0 Promethazine-DM (PHENERGAN-DM) 6.25-15 mg/5 mL syrup Take 5 mL by mouth four times daily as needed. Disp: 120 mL Rfl: 0 nystatin (NYSTOP) powder Apply 1 application to affected area four times daily. Disp: 1 Bottle Rfl: 2 ranitidine (ZANTAC) 150 mg tablet Take 1 tablet by mouth daily at bedtime. Disp: 90 tablet Rfl: 1 No current facility-administered medications for this visit. INFLUENZA(1) due on 07/06/2018 EXAM: BP 122/84 (BP Site: Right Arm, BP Position: Sitting, BP Cuff Size: Regular Adult) Pulse 68 Resp 16 Wt 68.5 kg (151 lb 1.9 oz) BMI 28.90 kg/m? Pleasant adult woman in no acute distress. Alert and oriented all spheres. Normal affect and cognition. Speech normal. No deficits to learning or comprehension. Skin warm, dry, pink to lips and nailbeds. Normal turgor. Respirations regular and unlabored. TTPs bilateral neck with restricted ROM to right side bending. Extrem: no clubbing, cyanosis, edema. Extremities are warm and pink with prompt capillary refill. OMT: myofascial release, HVLA cervical and thoracic with improvement. ASSESSMENT/PLAN: 1. Cervicothoracic somatic dysfunction - ICD9: 739.1, ICD10: M99.01 Ice/ moist heat, lineaments, OTC analgesics as needed,. Stretching and posture reviewed. F/u prn M Colten Muñiz PA-C Referring Provider: SELF [200] Allergies As of Date: 07/23/2018 Noted Allergy Reaction AMOXACILLIN (AMOXICILLIN) 08/31/2008 4 - Hives PAXIL (PAROXETINE HCL) 10/15/2017 8 - GI Upset Comments: Nausea, vomiting. PERCOCET (OXYCODONE-ACETAMINOPHEN)04/08/2014 11 - Vomiting ZOLOFT (SERTRALINE HCL) 10/15/2017 5 - Intolerance Comments: Nausea, trouble eating Date Reviewed: 07/23/2018 Reviewed by: Ro Gardner Ma - Fully Assessed Reason for Visit: Pain [78] Cmt: Upper back and shoulders Primary Visit Diagnosis:Cervicothoracic somatic dysfunction [M99.01] Prescriptions as of 07/23/2018 Sig: DOXYCYCLINE MONOHYDRATE 100 M* Take 1 capsule by mouth twice* PROMETHAZINE-DM 6.25 MG-15 MG* Take 5 mL by mouth four times* NYSTATIN 100,000 UNIT/GRAM TO* Apply 1 application to affect* RANITIDINE 150 MG TABLET Take 1 tablet by mouth daily * Problem List As Of Date 07/23/2018 Noted Resolved Impaired fasting glucose [R73.01] INVALID FOR* Priority: A ABN GLUCOSE-ANTEPARTUM [O99.810] TENSION HEADACHE [G44.209] INVALID FOR* Insomnia, unspecified [G47.00] INVALID FOR* Priority: B Routine general medical examination at a health*INVALID FOR*09/25/2013 Priority: A Class: Chronic More... Routine gynecological examination [Z01.419] INVALID FOR*09/25/2013 Priority: B Class: Chronic More... Migraine, unspecified, without mention of intra*INVALID FOR* Priority: A Anxiety [F41.9] INVALID FOR* Priority: A Elevated blood pressure (not hypertension) [R03*INVALID FOR* Priority: A Left upper extremity numbness [R20.0] INVALID FOR* Counseling and coordination of care [Z71.89] INVALID FOR*07/09/2015 More... Cervicothoracic somatic dysfunction [M99.01] INVALID FOR* Neck pain [M54.2] INVALID FOR* Muscle tension headache [G44.209] INVALID FOR* Encounter Status:Closed by Venessa MUÑIZ PA-C on 07/23/18 PROGRESS Observed: 07/19/2018 Status: COMPLETED Source: [place] 9:49 AM [facility] [place] REPOSITORY [facility] ID: [id number] Author: Loco Ren Service: (none) Author Type: Physician Type: Progress Notes Filed: 07/19/2018 9:57 AM Note Text: Patient presents with: Cough HPI: Patient presents today for office visit for follow up. Nursing Notes: Lorie Gan Ma 07/19/2018 8:55 AM Signed Patient presents today complaining of cough. Duration: 1.5 weeks. Cough is productive:No. Fever: :did have fever over the weekend. Shortness of breath:No. Sore throat :No. Ear Pain :No. Chest Pain :No. Previous treatments tried: started with Sudafed, then Benadryl. Cough is worse in the morning and at night. Broke out in hives earlier this week. Wasn't sure if related to sudafed or illness. No changes in soaps or detergents. MEDICATIONS: Current Outpatient Prescriptions: nystatin (NYSTOP) powder Apply 1 application to affected area four times daily. ranitidine (ZANTAC) 150 mg tablet Take 1 tablet by mouth daily at bedtime. No current facility-administered medications for this visit. ALLERGIES: ALLERGIES Allergen Reactions - Amoxacillin [Amoxic* Hives - Paxil [Paroxetine H* GI Upset Nausea, vomiting. - Percocet [Oxycodone* Vomiting - Zoloft [Sertraline * Intolerance Nausea, trouble eating PAST MEDICAL HISTORY Diagnosis Date - Abnormal maternal glucose tolerance, antepartum 1995 - Insomnia, unspecified - Myopia - Tension headache PAST SURGICAL HISTORY Procedure Laterality Date - LASIK 04/02/2014 FS OD DVA by Dr Chaves/Dr Fagan attending - LIGATE FALLOPIAN TUBE 2004 Tubal ligation - PAST SURGICAL HISTORY OF age 20 +/- wisdom teeth - PRK 04/02/2014 with [facility] OS DVA by Dr Chaves/Dr Fagan attending FAMILY HISTORY Problem Relation Age of Onset - Diabetes Mother - None Father from ? polimyelitis? (see 04/25/2011) - Cancer Maternal Grandfather unknown primary Social History Marital status: Spouse name: sebas Years of education: Number of children: 2 Occupational History Occupation Employer Comment [employer]* Social History Main Topics Smoking status: Never Smoker Smokeless tobacco: Never Used Alcohol use: Yes Comment: occasion Drug use: No Sexual activity: Yes Partners with: Male control/protection: Tubal Ligation Comment: Monogamous with of 8 years. Reviewed current medications, allergies, past medical history, surgical history, family history and social history today. REVIEW OF SYSTEMS GI: No nausea, vomiting, or diarrhea All other reviewed and negative other than HPI. HEALTH MAINTENANCE: Reviewed health maintenance issues today and recommended the following in detail. INFLUENZA(1) due on 07/06/2018 VITALS: BP 140/96 Pulse 69 Temp 36.6 ?C (97.9 ?F) SpO2 99% Last 4 Encounter Wt Readings: Date: Wt: 07/09/2018 68.5 kg (151 lb) 06/05/2018 71.2 kg (157 lb) 04/30/2018 73.1 kg (161 lb 1.6 oz) 04/08/2018 71.7 kg (158 lb) PHYSICAL EXAMINATION: General appearance: Well appearing, alert, in no acute distress, well-hydrated, well nourished. Skin: Skin color, texture, turgor normal, no suspicious rashes or lesions Head: Normocephalic, no masses, lesions, tenderness or abnormalities Eyes: Anicteric sclera. Pupils are equally round and reactive to light. Extraocular movements are intact. Ears: External ears normal, canals clear Nose/Sinuses: Nares normal, septum midline, mucosa normal, no drainage or sinus tenderness Oropharynx: Lips, mucosa, and tongue normal, teeth and gums normal, oropharynx normal and thick drainage in posterior pharynx Neck: Supple, no adenopathy Lungs: Lungs clear to auscultation. No wheezing, rhonchi, rales Heart: RRR without murmur, gallop, or rubs. No ectopy Abdomen: Normal abdominal exam, Abdomen soft, non-tender. Bowel sounds normal. No masses, organomegaly ASSESSMENT/PLAN: 1. Bacterial sinusitis - ICD9: 473.9, 041.9, ICD10: J32.9, B96.89 - Supportive care with plenty of fluids, rest, and analgesia prn. - Follow up in one week if symptoms persist or worsen. - DOXYCYCLINE MONOHYDRATE 100 MG CAPSULE - PROMETHAZINE-DM 6.25 MG-15 MG/5 ML SYRUP Loco Ren MD bp check in two weeks CNOV Observed: 07/19/2018 Status: COMPLETED Source: [place] 8:40 AM [facility] REPOSITORY [facility] MANUEL HANLEY ([id number]) 1980 F Date Time Provider Department 07/19/18 8:40 AM [facility] During your visit today, we recorded the following information about you: Temperature Pulse Blood pressure 97.9 degrees 69/minute 140/96 Lorie Gan Ma 07/19/2018 8:55 AM Signed Patient presents today complaining of cough. Duration: 1.5 weeks. Cough is productive:No. Fever: :did have fever over the weekend. Shortness of breath:No. Sore throat :No. Ear Pain :No. Chest Pain :No. Previous treatments tried: started with Sudafed, then Benadryl. Cough is worse in the morning and at night. Loco Ren MD 07/19/2018 9:57 AM Signed Patient presents with: Cough HPI: Patient presents today for office visit for follow up. Nursing Notes: Lorie Gan Ma 07/19/2018 8:55 AM Signed Patient presents today complaining of cough. Duration: 1.5 weeks. Cough is productive:No. Fever: :did have fever over the weekend. Shortness of breath:No. Sore throat :No. Ear Pain :No. Chest Pain :No. Previous treatments tried: started with Sudafed, then Benadryl. Cough is worse in the morning and at night. Broke out in hives earlier this week. Wasn't sure if related to sudafed or illness. No changes in soaps or detergents. MEDICATIONS: Current Outpatient Prescriptions: nystatin (NYSTOP) powder Apply 1 application to affected area four times daily. ranitidine (ZANTAC) 150 mg tablet Take 1 tablet by mouth daily at bedtime. No current facility-administered medications for this visit. ALLERGIES: ALLERGIES Allergen Reactions - Amoxacillin [Amoxic* Hives - Paxil [Paroxetine H* GI Upset Nausea, vomiting. - Percocet [Oxycodone* Vomiting - Zoloft [Sertraline * Intolerance Nausea, trouble eating PAST MEDICAL HISTORY Diagnosis Date - Abnormal maternal glucose tolerance, antepartum 1995 - Insomnia, unspecified - Myopia - Tension headache PAST SURGICAL HISTORY Procedure Laterality Date - LASIK 04/02/2014 FS OD DVA by Dr Chaves/Dr Fgaan attending - LIGATE FALLOPIAN TUBE 2004 Tubal ligation - PAST SURGICAL HISTORY OF age 20 +/- wisdom teeth - PRK 04/02/2014 with [facility] OS DVA by Dr Chaves/Dr Fagan attending FAMILY HISTORY Problem Relation Age of Onset - Diabetes Mother - None Father from ? polimyelitis? (see 04/25/2011) - Cancer Maternal Grandfather unknown primary Social History Marital status: Spouse name: sebas Years of education: Number of children: 2 Occupational History Occupation Employer Comment [employer]* Social History Main Topics Smoking status: Never Smoker Smokeless tobacco: Never Used Alcohol use: Yes Comment: occasion Drug use: No Sexual activity: Yes Partners with: Male control/protection: Tubal Ligation Comment: Monogamous with of 8 years. Reviewed current medications, allergies, past medical history, surgical history, family history and social history today. REVIEW OF SYSTEMS GI: No nausea, vomiting, or diarrhea All other reviewed and negative other than HPI. HEALTH MAINTENANCE: Reviewed health maintenance issues today and recommended the following in detail. INFLUENZA(1) due on 07/06/2018 VITALS: BP 140/96 Pulse 69 Temp 36.6 ?C (97.9 ?F) SpO2 99% Last 4 Encounter Wt Readings: Date: Wt: 07/09/2018 68.5 kg (151 lb) 06/05/2018 71.2 kg (157 lb) 04/30/2018 73.1 kg (161 lb 1.6 oz) 04/08/2018 71.7 kg (158 lb) PHYSICAL EXAMINATION: General appearance: Well appearing, alert, in no acute distress, well-hydrated, well nourished. Skin: Skin color, texture, turgor normal, no suspicious rashes or lesions Head: Normocephalic, no masses, lesions, tenderness or abnormalities Eyes: Anicteric sclera. Pupils are equally round and reactive to light. Extraocular movements are intact. Ears: External ears normal, canals clear Nose/Sinuses: Nares normal, septum midline, mucosa normal, no drainage or sinus tenderness Oropharynx: Lips, mucosa, and tongue normal, teeth and gums normal, oropharynx normal and thick drainage in posterior pharynx Neck: Supple, no adenopathy Lungs: Lungs clear to auscultation. No wheezing, rhonchi, rales Heart: RRR without murmur, gallop, or rubs. No ectopy Abdomen: Normal abdominal exam, Abdomen soft, non-tender. Bowel sounds normal. No masses, organomegaly ASSESSMENT/PLAN: 1. Bacterial sinusitis - ICD9: 473.9, 041.9, ICD10: J32.9, B96.89 - Supportive care with plenty of fluids, rest, and analgesia prn. - Follow up in one week if symptoms persist or worsen. - DOXYCYCLINE MONOHYDRATE 100 MG CAPSULE - PROMETHAZINE-DM 6.25 MG-15 MG/5 ML SYRUP Loco Ren MD bp check in two weeks Referring Provider: SELF [200] Allergies As of Date: 07/19/2018 Noted Allergy Reaction AMOXACILLIN (AMOXICILLIN) 08/31/2008 4 - Hives PAXIL (PAROXETINE HCL) 10/15/2017 8 - GI Upset Comments: Nausea, vomiting. PERCOCET (OXYCODONE-ACETAMINOPHEN)04/08/2014 11 - Vomiting ZOLOFT (SERTRALINE HCL) 10/15/2017 5 - Intolerance Comments: Nausea, trouble eating Date Reviewed: 06/05/2018 Reviewed by: Bertha Buck LPN - Fully Assessed Reason for Visit: Cough [28] Primary Visit Diagnosis:Bacterial sinusitis [J32.9, B96.89] Order(s):doxycycline monohydrate (MONODOX) 100 mg capsuleTake 1 capsule by mouth twice daily.Disp: 20 capsuleRfl: 0 Promethazine-DM (PHENERGAN-DM) 6.25-15 mg/5 mL syrupTake 5 mL by mouth four times daily as needed.Disp: 120 mLRfl: 0 Prescriptions as of 07/19/2018 Sig: DOXYCYCLINE MONOHYDRATE 100 M* Take 1 capsule by mouth twice* PROMETHAZINE-DM 6.25 MG-15 MG* Take 5 mL by mouth four times* NYSTATIN 100,000 UNIT/GRAM TO* Apply 1 application to affect* RANITIDINE 150 MG TABLET Take 1 tablet by mouth daily * Problem List As Of Date 07/19/2018 Noted Resolved Impaired fasting glucose [R73.01] INVALID FOR* Priority: A ABN GLUCOSE-ANTEPARTUM [O99.810] TENSION HEADACHE [G44.209] INVALID FOR* Insomnia, unspecified [G47.00] INVALID FOR* Priority: B Routine general medical examination at a health*INVALID FOR*09/25/2013 Priority: A Class: Chronic More... Routine gynecological examination [Z01.419] INVALID FOR*09/25/2013 Priority: B Class: Chronic More... Migraine, unspecified, without mention of intra*INVALID FOR* Priority: A Anxiety [F41.9] INVALID FOR* Priority: A Elevated blood pressure (not hypertension) [R03*INVALID FOR* Priority: A Left upper extremity numbness [R20.0] INVALID FOR* Counseling and coordination of care [Z71.89] INVALID FOR*07/09/2015 More... Cervicothoracic somatic dysfunction [M99.01] INVALID FOR* Neck pain [M54.2] INVALID FOR* Muscle tension headache [G44.209] INVALID FOR* Visit Notes: >> Lorie Gan Ma SunJul 19, 2018 8:49 AM Status: Signed Patient presents today complaining of cough. Duration: 1.5 weeks. Cough is productive:No. Fever: :did have fever over the weekend. Shortness of breath:No. Sore throat :No. Ear Pain :No. Chest Pain :No. Previous treatments tried: started with Sudafed, then Benadryl. Cough is worse in the morning and at night. Prescriptions ordered this encounter Disp Refills Start End DOXYCYCLINE MONOHYDRATE 100 MG CAPSU* 20 c* 0 07/19/2018 Route: ORAL Sig: Take 1 capsule by mouth twice daily. PROMETHAZINE-DM 6.25 MG-15 MG/5 ML S* 120 * 0 07/19/2018 Route: ORAL Sig: Take 5 mL by mouth four times daily as needed. Disposition: Return if symptoms worsen or fail to improve. Follow-up and Disposition History Recorded Encounter Status:Closed by LOCO REN MD on 07/19/18 PROGRESS Observed: 07/03/2018 Status: COMPLETED Source: [place] 10:17 AM [facility] REPOSITORY [facility] ID: [id number] Author: Francisco Villagomez Ma Service: (none) Author Type: (none) Type: Progress Notes Filed: 07/03/2018 10:18 AM Note Text: SHY De La Cruz [facility] Care Coordination Note Call to member to update progress in [facility] program. Weight goal to reach between 06/19/18 -08/04/18 of 156 lbs Reminded member of established weight goal, deadline and of the importance of reporting a final documented weight to me. Goal for LDL level is 130 or below. Cholesterol, Total (mg/dL) Date Value 11/21/2012 181 HDL Cholesterol (mg/dL) Date Value 11/21/2012 40 LDL Cholesterol (mg/dL) Date Value 11/21/2012 114 LDL Chol, [place] (mg/dL) Date Value 09/03/2008 78 Triglyceride (mg/dL) Date Value 11/21/2012 133 Is member currently being treated for Hyperlipidemia? No If yes, is lipid panel done annually? No Goal for blood pressure is 140/90 or below. Last 3 Encounter BP Readings: Date: BP: 06/05/2018 120/86 06/03/2018 118/82 04/30/2018 126/82 Is member currently being treated for Hypertension No Has there been a Basic Metabolic Panel done within the last year?No Glucose (mg/dL) Date Value 05/24/2018 102 Potassium (mmol/L) Date Value 05/24/2018 4.4 Sodium (mmol/L) Date Value 05/24/2018 140 Chloride (mmol/L) Date Value 05/24/2018 104 CO2 (mmol/L) Date Value 05/24/2018 26 Creatinine (mg/dL) Date Value 05/24/2018 0.87 BUN (mg/dL) Date Value 05/24/2018 12 Anion Gap (mmol/L) Date Value 05/24/2018 10 Calcium (mg/dL) Date Value 05/24/2018 9.1 Medication Refill Adherence- na HEALTH MAINTENANCE INFLUENZA(1) due on 07/06/2018 Depression Screening- During the last month or since our last conversation, have you often been bothered by feeling down, depressed or hopeless?No During the last month or since our last conversation, have you been bothered by little interest or pleasure in doing things?No (if answer yes, please complete extended depression screening) Asked member to reach out to me with any questions before next call in 12 weeks if needed. Francisco Villagomez Ma July 03, 2018 10:17 AM CNPTOUTREACH Observed: 07/03/2018 Status: COMPLETED Source: [place] 12:00 AM [facility] REPOSITORY Patient Outreach ([facility]) MANUEL HANLEY ([id number]) 1980 F Date Time Provider Department 07/03/18 FRANCISCO VILLAGOMZE) ZOE During your visit today, we recorded the following information about you: Francisco Villagomez Windy 07/03/2018 10:18 AM Signed M SHY Mariano [facility] Care Coordination Note Call to member to update progress in [facility] program. Weight goal to reach between 06/19/18 -08/04/18 of 156 lbs Reminded member of established weight goal, deadline and of the importance of reporting a final documented weight to me. Goal for LDL level is 130 or below. Cholesterol, Total (mg/dL) Date Value 11/21/2012 181 HDL Cholesterol (mg/dL) Date Value 11/21/2012 40 LDL Cholesterol (mg/dL) Date Value 11/21/2012 114 LDL Chol, [place] (mg/dL) Date Value 09/03/2008 78 Triglyceride (mg/dL) Date Value 11/21/2012 133 Is member currently being treated for Hyperlipidemia? No If yes, is lipid panel done annually? No Goal for blood pressure is 140/90 or below. Last 3 Encounter BP Readings: Date: BP: 06/05/2018 120/86 06/03/2018 118/82 04/30/2018 126/82 Is member currently being treated for Hypertension No Has there been a Basic Metabolic Panel done within the last year?No Glucose (mg/dL) Date Value 05/24/2018 102 Potassium (mmol/L) Date Value 05/24/2018 4.4 Sodium (mmol/L) Date Value 05/24/2018 140 Chloride (mmol/L) Date Value 05/24/2018 104 CO2 (mmol/L) Date Value 05/24/2018 26 Creatinine (mg/dL) Date Value 05/24/2018 0.87 BUN (mg/dL) Date Value 05/24/2018 12 Anion Gap (mmol/L) Date Value 05/24/2018 10 Calcium (mg/dL) Date Value 05/24/2018 9.1 Medication Refill Adherence- na HEALTH MAINTENANCE INFLUENZA(1) due on 07/06/2018 Depression Screening- During the last month or since our last conversation, have you often been bothered by feeling down, depressed or hopeless?No During the last month or since our last conversation, have you been bothered by little interest or pleasure in doing things?No (if answer yes, please complete extended depression screening) Asked member to reach out to me with any questions before next call in 12 weeks if needed. Francisco Villagomez Ma July 03, 2018 10:17 AM Allergies As of Date: 07/03/2018 Noted Allergy Reaction AMOXACILLIN (AMOXICILLIN) 08/31/2008 4 - Hives PAXIL (PAROXETINE HCL) 10/15/2017 8 - GI Upset Comments: Nausea, vomiting. 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 Routine gynecological examination [Z01.419] INVALID FOR*09/25/2013 Priority: B Class: Chronic More... Migraine, unspecified, without mention of intra*INVALID FOR* Priority: A Anxiety [F41.9] INVALID FOR* Priority: A Elevated blood pressure (not hypertension) [R03*INVALID FOR* Priority: A Left upper extremity numbness [R20.0] INVALID FOR* Counseling and coordination of care [Z71.89] INVALID FOR*07/09/2015 More... Cervicothoracic somatic dysfunction [M99.01] INVALID FOR* Neck pain [M54.2] INVALID FOR* Muscle tension headache [G44.209] INVALID FOR* Encounter Status:Closed by FRANCISCO VILLAGOMEZ MA on 07/03/18 PROGRESS Observed: 06/05/2018 Status: COMPLETED Source: [place] 9:40 AM [facility] REPOSITORY O ID: [id number] Author: Venessa Abel (Pa-C) Antonino Service: (none) Author Type: Physician Blindstitch Hemmer Type: Progress Notes Filed: 06/05/2018 9:44 AM Note Text: 37 year old female with c/o woke with posterior neck pain and occipital headache. No radiating pain, numbness, tingling, loss of motor function. Worked about 90 hours last week between two jobs. Has been stressed. Minimal use of Ativan. HISTORIES FAMILY HISTORY Problem Relation Age of Onset - Diabetes Mother - None Father from ? polimyelitis? (see 04/25/2011) - Cancer Maternal Grandfather unknown primary PAST MEDICAL HISTORY Diagnosis Date - Abnormal maternal glucose tolerance, antepartum 1995 - Insomnia, unspecified - Myopia - Tension headache PAST SURGICAL HISTORY Procedure Laterality Date - LASIK 04/02/2014 FS OD DVA by Dr Chaves/Dr Fagan attending - LIGATE FALLOPIAN TUBE 2005 Tubal ligation - PAST SURGICAL HISTORY OF age 20 +/- wisdom teeth - PRK 04/02/2014 with [facility] OS DVA by Dr Chaves/Dr Fagan attending Social History Marital status: Spouse name: sebas Years of education: Number of children: 2 Occupational History Occupation Employer Comment [employer] Social History Main Topics Smoking status: Never Smoker Smokeless tobacco: Never Used Alcohol use: Yes Comment: occasion Drug use: No Sexual activity: Yes Partners with: Male control/protection: Tubal Ligation Comment: Monogamous with of 8 years. ACTIVE PROBLEM LIST Impaired Fasting Glucose Abnormal Maternal Glucose Tolerance, Antepartum Tension Headache Insomnia, Unspecified Migraine, Unspecified, Without Mention of Intractable Migraine Without Mention of Status Migrainosus Anxiety Elevated Blood Pressure (Not Hypertension) Left Upper Extremity Numbness Cervicothoracic Somatic Dysfunction Neck Pain Muscle Tension Headache Current Outpatient Prescriptions: nystatin (NYSTOP) powder Apply 1 application to affected area four times daily. Disp: 1 Bottle Rfl: 2 LORazepam (ATIVAN) 0.5 mg tab Take 1 tablet by mouth twice daily for 60 days. Disp: 30 tablet Rfl: 1 ranitidine (ZANTAC) 150 mg tablet Take 1 tablet by mouth daily at bedtime. Disp: 90 tablet Rfl: 1 No current facility-administered medications for this visit. INFLUENZA(1) due on 07/06/2018 EXAM: BP 120/86 Pulse 80 Temp 36.5 ?C (97.7 ?F) (Tympanic) Resp 16 Wt 71.2 kg (157 lb) LMP 05/15/2018 BMI 30.03 kg/m? Pleasant adult woman in no acute distress. Alert and oriented all spheres. Normal affect and cognition. Speech normal. No deficits to learning or comprehension. Skin warm, dry, pink to lips and nailbeds. Normal turgor. Respirations regular and unlabored. Neck FROM with some pain. Tender trigger points bilaterally, upper traps, upper back with TTP over rib insertions. Extrem: no clubbing, cyanosis, edema. Extremities are warm and pink with prompt capillary refill. OMT; myofascial release to trigger points, HVLA to cervical and thoracic segments with marked improvement. ASSESSMENT/PLAN: 1. Cervicothoracic somatic dysfunction - ICD9: 739.1, ICD10: M99.01 (primary diagnosis) 2. Tension headache - ICD9: 307.81, ICD10: G44.209 Ice/ moist heat, lineaments, OTC analgesics as needed,. Stretching and posture reviewed. Follow up ESPERANZA Rodríguez Observed: 06/05/2018 Status: COMPLETED Source: [place] 8:40 AM [facility] REPOSITORY Office Visit ([facility]AMPWS) MANUEL HANLEY ([id number]) 1980 F Date Time Provider Department 06/05/18 8:40 AM Venessa MUÑIZ) ASHLEY During your visit today, we recorded the following information about you: Temperature Pulse Respiration Blood pressure 97.7 degrees 80/minute 16/minute 120/86 Weight Last Period 71.2 kg 05/15/18 Venessa Muñiz PA-C 06/05/2018 9:44 AM Signed 37 year old female with c/o woke with posterior neck pain and occipital headache. No radiating pain, numbness, tingling, loss of motor function. Worked about 90 hours last week between two jobs. Has been stressed. Minimal use of Ativan. HISTORIES FAMILY HISTORY Problem Relation Age of Onset - Diabetes Mother - None Father from ? polimyelitis? (see 04/25/2011) - Cancer Maternal Grandfather unknown primary PAST MEDICAL HISTORY Diagnosis Date - Abnormal maternal glucose tolerance, antepartum 1995 - Insomnia, unspecified - Myopia - Tension headache PAST SURGICAL HISTORY Procedure Laterality Date - LASIK 04/02/2014 FS OD DVA by Dr Chaves/Dr Fagan attending - LIGATE FALLOPIAN TUBE 2004 Tubal ligation - PAST SURGICAL HISTORY OF age 20 +/- wisdom teeth - PRK 04/02/2014 with [facility] OS DVA by Dr Chaves/Dr Fagan attending Social History Marital status: Spouse name: sebas Years of education: Number of children: 2 Occupational History Occupation Employer Comment [employer]* Social History Main Topics Smoking status: Never Smoker Smokeless tobacco: Never Used Alcohol use: Yes Comment: occasion Drug use: No Sexual activity: Yes Partners with: Male control/protection: Tubal Ligation Comment: Monogamous with of 8 years. ACTIVE PROBLEM LIST Impaired Fasting Glucose Abnormal Maternal Glucose Tolerance, Antepartum Tension Headache Insomnia, Unspecified Migraine, Unspecified, Without Mention of Intractable Migraine Without Mention of Status Migrainosus Anxiety Elevated Blood Pressure (Not Hypertension) Left Upper Extremity Numbness Cervicothoracic Somatic Dysfunction Neck Pain Muscle Tension Headache Current Outpatient Prescriptions: nystatin (NYSTOP) powder Apply 1 application to affected area four times daily. Disp: 1 Bottle Rfl: 2 LORazepam (ATIVAN) 0.5 mg tab Take 1 tablet by mouth twice daily for 60 days. Disp: 30 tablet Rfl: 1 ranitidine (ZANTAC) 150 mg tablet Take 1 tablet by mouth daily at bedtime. Disp: 90 tablet Rfl: 1 No current facility-administered medications for this visit. INFLUENZA(1) due on 07/06/2018 EXAM: BP 120/86 Pulse 80 Temp 36.5 ?C (97.7 ?F) (Tympanic) Resp 16 Wt 71.2 kg (157 lb) LMP 05/15/2018 BMI 30.03 kg/m? Pleasant adult woman in no acute distress. Alert and oriented all spheres. Normal affect and cognition. Speech normal. No deficits to learning or comprehension. Skin warm, dry, pink to lips and nailbeds. Normal turgor. Respirations regular and unlabored. Neck FROM with some pain. Tender trigger points bilaterally, upper traps, upper back with TTP over rib insertions. Extrem: no clubbing, cyanosis, edema. Extremities are warm and pink with prompt capillary refill. OMT; myofascial release to trigger points, HVLA to cervical and thoracic segments with marked improvement. ASSESSMENT/PLAN: 1. Cervicothoracic somatic dysfunction - ICD9: 739.1, ICD10: M99.01 (primary diagnosis) 2. Tension headache - ICD9: 307.81, ICD10: G44.209 Ice/ moist heat, lineaments, OTC analgesics as needed,. Stretching and posture reviewed. Follow up prn M Colten Muñiz PA-C Referring Provider: SELF [200] Allergies As of Date: 06/05/2018 Noted Allergy Reaction AMOXACILLIN (AMOXICILLIN) 08/31/2008 4 - Hives PAXIL (PAROXETINE HCL) 10/15/2017 8 - GI Upset Comments: Nausea, vomiting. PERCOCET (OXYCODONE-ACETAMINOPHEN)04/08/2014 11 - Vomiting ZOLOFT (SERTRALINE HCL) 10/15/2017 5 - Intolerance Comments: Nausea, trouble eating Date Reviewed: 06/05/2018 Reviewed by: Bertha Buck LPN - Fully Assessed Reason for Visit: Headache [52] Cmt: started this am Nausea [70] Primary Visit Diagnosis:Cervicothoracic somatic dysfunction [M99.01] Other Visit Diagnosis:Tension headache [G44.209] Prescriptions as of 06/05/2018 Sig: NYSTATIN 100,000 UNIT/GRAM TO* Apply 1 application to affect* LORAZEPAM 0.5 MG TABLET Take 1 tablet by mouth twice * RANITIDINE 150 MG TABLET Take 1 tablet by mouth daily * Problem List As Of Date 06/05/2018 Noted Resolved Impaired fasting glucose [R73.01] INVALID FOR* Priority: A ABN GLUCOSE-ANTEPARTUM [O99.810] TENSION HEADACHE [G44.209] INVALID FOR* Insomnia, unspecified [G47.00] INVALID FOR* Priority: B Routine general medical examination at a health*INVALID FOR*09/25/2013 Priority: A Class: Chronic More... Routine gynecological examination [Z01.419] INVALID FOR*09/25/2013 Priority: B Class: Chronic More... Migraine, unspecified, without mention of intra*INVALID FOR* Priority: A Anxiety [F41.9] INVALID FOR* Priority: A Elevated blood pressure (not hypertension) [R03*INVALID FOR* Priority: A Left upper extremity numbness [R20.0] INVALID FOR* Counseling and coordination of care [Z71.89] INVALID FOR*07/09/2015 More... Cervicothoracic somatic dysfunction [M99.01] INVALID FOR* Neck pain [M54.2] INVALID FOR* Muscle tension headache [G44.209] INVALID FOR* Encounter Status:Closed by Venessa MUÑIZ PA-C on 06/05/18 PROGRESS Observed: 06/03/2018 Status: COMPLETED Source: [place] 9:36 AM [facility] REPOSITORY O ID: [id number] Author: Pamela () Malcolm Thomas Service: (none) Author Type: Manager Of International Type: Progress Notes Filed: 06/03/2018 9:36 AM Note Text: Radiology Service Progress Note PATIENT NAME: Manuel Hanley DATE OF SERVICE: June 03, 2018 TIME: 9:36 AM PATIENT IDENTITY VERIFICATION COMPLETED USING TWO (2) METHODS: Patient confirmed name verbally and Date of . PATIENT GENDER DATA: Female. status: : No status: NO. PATIENT RELEVANT IMPLANT DATA REVIEWED: Not Applicable RADIOLOGY DEPARTMENT: General X-ray: Exam(s) Completed: Upper Extremity X-Ray(s): Hand, right : PERIPHERAL IV DATA: Not applicable SIGNED BY: RT Robina June 03, 2018 9:36 AM XR HAND 3V PA/LAT/OBL Observed: 06/03/2018 Status: F Source: [facility] 9:23 AM [facility] [place] REPOSITORY * * *Final Report* * * DATE OF EXAM: Jun 03 2018 9:23AM WOX [id number] - XR HAND 3V PA/LAT/OBL RT / PROCEDURE REASON: Unspecified injury of right wrist, hand and finger(s), initial encounter * * * * Physician Interpretation * * * * RIGHT HAND - 06/03/2018 9:23 AM TECHNIQUE: 3 views (PA, LAT, OBL) HISTORY - Clinical Information/Indication: Right hand proximal 2nd metacarpal bruising S/P injury yesterday COMPARED WITH: N/A RESULT: No fracture or dislocation is seen. Bones, joints and soft tissues are unremarkable. IMPRESSION: No acute/significant pathology detected. Glaze Maker: PSCB Transcribe Date/Time: Jun 04 2018 9:29A Dictated by : NASIR PERAZA MD This examination was interpreted and the report reviewed and electronically signed by: NASIR PERAZA MD on Jun 04 2018 9:31AM EST [id number] PROGRESS Observed: 06/03/2018 Status: COMPLETED Source: [place] 9:01 AM [facility] REPOSITORY HNO ID: [id number] Author: Venessa Abel ([place]) Antonino Service: (none) Author Type: Physician Blindstitch Hemmer Type: Progress Notes Filed: 06/03/2018 9:15 AM Note Text: 37 year old female with c/o pain and bruising over right dorsal hand proximal MT bump. 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 Hit it hard against cooler door. Doing well with anxiety. HISTORIES FAMILY HISTORY Problem Relation Age of Onset - Diabetes Mother - None Father from ? polimyelitis? (see 04/25/2011) - Cancer Maternal Grandfather unknown primary PAST MEDICAL HISTORY Diagnosis Date - Abnormal maternal glucose tolerance, antepartum 1995 - Insomnia, unspecified - Myopia - Tension headache PAST SURGICAL HISTORY Procedure Laterality Date - LASIK 04/02/2014 FS OD DVA by Dr Chaves/Dr Fagan attending - LIGATE FALLOPIAN TUBE 2005 Tubal ligation - PAST SURGICAL HISTORY OF age 20 +/- wisdom teeth - PRK 04/02/2014 with [facility] OS DVA by Dr Chaves/Dr Fagan attending Social History Marital status: Spouse name: sebas Years of education: Number of children: 2 Occupational History Occupation Employer Comment [employer]* Social History Main Topics Smoking status: Never Smoker Smokeless tobacco: Never Used Alcohol use: Yes Comment: occasion Drug use: No Sexual activity: Yes Partners with: Male control/protection: Tubal Ligation Comment: Monogamous with of 8 years. ACTIVE PROBLEM LIST Impaired Fasting Glucose Abnormal Maternal Glucose Tolerance, Antepartum Tension Headache Insomnia, Unspecified Migraine, Unspecified, Without Mention of Intractable Migraine Without Mention of Status Migrainosus Anxiety Elevated Blood Pressure (Not Hypertension) Left Upper Extremity Numbness Cervicothoracic Somatic Dysfunction Neck Pain Muscle Tension Headache Current Outpatient Prescriptions: LORazepam (ATIVAN) 0.5 mg tab Take 1 tablet by mouth twice daily for 60 days. Disp: 30 tablet Rfl: 1 ranitidine (ZANTAC) 150 mg tablet Take 1 tablet by mouth daily at bedtime. Disp: 90 tablet Rfl: 1 nystatin (NYSTOP) powder Apply 1 application to affected area four times daily. Disp: 1 Bottle Rfl: 2 No current facility-administered medications for this visit. There are no preventive care reminders to display for this patient. EXAM: BP 118/82 Pulse 64 Temp 36.3 ?C (97.3 ?F) (Tympanic) Resp 20 Pleasant adult woman in no acute distress. Alert and oriented all spheres. Normal affect and cognition. Speech normal. No deficits to learning or comprehension. Skin warm, dry, pink to lips and nailbeds. Normal turgor. Respirations regular and unlabored. Extrem: no clubbing, cyanosis, edema. Extremities are warm and pink with prompt capillary refill.right hand with tenderness and bruising over proximal 2nd metacarpal. Pain with hand grasp, weak. ASSESSMENT/PLAN: 1. Hand injury, right, initial encounter - ICD9: 959.4, ICD10: S69.91XA RICE, OTC analgesics if needed. - XR HAND GENERAL 3V PA/LAT/OBL RT M ESPERANZA Mariano Observed: 06/03/2018 Status: COMPLETED Source: [place] 8:40 AM [facility] REPOSITORY [facility]AN[facility] ([id number]) 1980 F Date Time Provider Department 06/03/18 8:40 AM Venessa MUÑIZ) ASHLEY During your visit today, we recorded the following information about you: Temperature Pulse Respiration Blood pressure 97.3 degrees 64/minute 20/minute 118/82 M Colten Muñiz PA-C 06/03/2018 9:15 AM Signed 37 year old female with c/o pain and bruising over right dorsal hand proximal MT bump. 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 Hit it hard against cooler door. Doing well with anxiety. HISTORIES FAMILY HISTORY Problem Relation Age of Onset - Diabetes Mother - None Father from ? polimyelitis? (see 04/25/2011) - Cancer Maternal Grandfather unknown primary PAST MEDICAL HISTORY Diagnosis Date - Abnormal maternal glucose tolerance, antepartum 1995 - Insomnia, unspecified - Myopia - Tension headache PAST SURGICAL HISTORY Procedure Laterality Date - LASIK 04/02/2014 FS OD DVA by Dr Chaves/Dr Fagan attending - LIGATE FALLOPIAN TUBE 2004 Tubal ligation - PAST SURGICAL HISTORY OF age 20 +/- wisdom teeth - PRK 04/02/2014 with [facility] OS DVA by Dr Chaves/Dr Fagan attending Social History Marital status: Spouse name: sebas Years of education: Number of children: 2 Occupational History Occupation Employer Comment [employer]* Social History Main Topics Smoking status: Never Smoker Smokeless tobacco: Never Used Alcohol use: Yes Comment: occasion Drug use: No Sexual activity: Yes Partners with: Male control/protection: Tubal Ligation Comment: Monogamous with of 8 years. ACTIVE PROBLEM LIST Impaired Fasting Glucose Abnormal Maternal Glucose Tolerance, Antepartum Tension Headache Insomnia, Unspecified Migraine, Unspecified, Without Mention of Intractable Migraine Without Mention of Status Migrainosus Anxiety Elevated Blood Pressure (Not Hypertension) Left Upper Extremity Numbness Cervicothoracic Somatic Dysfunction Neck Pain Muscle Tension Headache Current Outpatient Prescriptions: LORazepam (ATIVAN) 0.5 mg tab Take 1 tablet by mouth twice daily for 60 days. Disp: 30 tablet Rfl: 1 ranitidine (ZANTAC) 150 mg tablet Take 1 tablet by mouth daily at bedtime. Disp: 90 tablet Rfl: 1 nystatin (NYSTOP) powder Apply 1 application to affected area four times daily. Disp: 1 Bottle Rfl: 2 No current facility-administered medications for this visit. There are no preventive care reminders to display for this patient. EXAM: BP 118/82 Pulse 64 Temp 36.3 ?C (97.3 ?F) (Tympanic) Resp 20 Pleasant adult woman in no acute distress. Alert and oriented all spheres. Normal affect and cognition. Speech normal. No deficits to learning or comprehension. Skin warm, dry, pink to lips and nailbeds. Normal turgor. Respirations regular and unlabored. Extrem: no clubbing, cyanosis, edema. Extremities are warm and pink with prompt capillary refill.right hand with tenderness and bruising over proximal 2nd metacarpal. Pain with hand grasp, weak. ASSESSMENT/PLAN: 1. Hand injury, right, initial encounter - ICD9: 959.4, ICD10: S69.91XA RICE, OTC analgesics if needed. - XR HAND GENERAL 3V PA/LAT/OBL RT M Colten Muñiz PA-C Referring Provider: SELF [200] Allergies As of Date: 06/03/2018 Noted Allergy Reaction AMOXACILLIN (AMOXICILLIN) 08/31/2008 4 - Hives PAXIL (PAROXETINE HCL) 10/15/2017 8 - GI Upset Comments: Nausea, vomiting. PERCOCET (OXYCODONE-ACETAMINOPHEN)04/08/2014 11 - Vomiting ZOLOFT (SERTRALINE HCL) 10/15/2017 5 - Intolerance Comments: Nausea, trouble eating Date Reviewed: 06/03/2018 Reviewed by: Bertha Buck LPN - Fully Assessed Reason for Visit: Pain [78] Cmt: right hand hit it on Sunday with lump at injury site Primary Visit Diagnosis:Hand injury, right, initial encounter [S69.91XA] Order(s):XR HAND GENERAL 3V PA/LAT/OBL RT [[id number]] Order #: [id number] FUTURE Prescriptions as of 06/03/2018 Sig: LORAZEPAM 0.5 MG TABLET Take 1 tablet by mouth twice * RANITIDINE 150 MG TABLET Take 1 tablet by mouth daily * NYSTATIN 100,000 UNIT/GRAM TO* Apply 1 application to affect* Problem List As Of Date 06/03/2018 Noted Resolved Impaired fasting glucose [R73.01] INVALID FOR* Priority: A ABN GLUCOSE-ANTEPARTUM [O99.810] TENSION HEADACHE [G44.209] INVALID FOR* Insomnia, unspecified [G47.00] INVALID FOR* Priority: B Routine general medical examination at a health*INVALID FOR*09/25/2013 Priority: A Class: Chronic More... Routine gynecological examination [Z01.419] INVALID FOR*09/25/2013 Priority: B Class: Chronic More... Migraine, unspecified, without mention of intra*INVALID FOR* Priority: A Anxiety [F41.9] INVALID FOR* Priority: A Elevated blood pressure (not hypertension) [R03*INVALID FOR* Priority: A Left upper extremity numbness [R20.0] INVALID FOR* Counseling and coordination of care [Z71.89] INVALID FOR*07/09/2015 More... Cervicothoracic somatic dysfunction [M99.01] INVALID FOR* Neck pain [M54.2] INVALID FOR* Muscle tension headache [G44.209] INVALID FOR* Encounter Status:Closed by Venessa MUÑIZ PA-C on 06/03/18 CBC AND DIFFERENTIAL Collected: 05/24/2018 Status: F Source: [place] 9:02 AM [facility] REPOSITORY TYPE CODE TESTS RESULT OUT OF REFERENCE UNITS RANGE LAB WBC 3.70-11.00 k/uL WBC 6.43 LAB RBC 3.90-5.20 m/uL RBC 4.44 LAB HGB 11.5-15.5 g/dL Hemoglobin 12.9 LAB HCT 36.0-46.0 % Hematocrit 40.1 LAB MCV 80.0-100.0 fL MCV 90.3 LAB MCH 26.0-34.0 pG MCH 29.1 LAB MCHC 30.5-36.0 g/dL MCHC 32.2 LAB RDWCV 11.5-15.0 % RDW-CV 12.3 LAB PLTCT 150-400 k/uL Platelet Count 225 LAB MPV 9.0-12.7 fL MPV 9.7 LAB ANEUT % Neut% 68.0 LAB AANEUT 1.45-7.50 k/uL Abs Neut 4.35 LAB ALYMP % Lymph% 24.7 LAB AALYMP 1.00-4.00 k/uL Abs Lymph 1.59 LAB AMONO % [place]% 6.2 LAB AAMONO <0.87 k/uL Abs [place] 0.40 LAB AEOS % Eosin% 0.6 LAB AAEOS <0.46 k/uL Abs Eosin 0.04 LAB ABASO % Baso% 0.5 LAB AABASO <0.11 k/uL Abs Baso 0.03 LAB AUNRBC 0 /100 WBC NRBCs 0.0 LAB ABNRBC <0.01 k/uL Absolute nRBC <0.01 LAB DTYP DTYPE Auto Diff Performed By: #### CBCDIF, BMP #### [facility] [address] [place], [place] [address] BASIC METABOLIC PANL Collected: 05/24/2018 Status: F Source: [place] 9:02 AM [facility] REPOSITORY TYPE CODE TESTS RESULT OUT OF REFERENCE UNITS RANGE LAB GLU 74-99 mg/dL High Glucose 102 Result Comment: The [place] [employer] (ADA) provides guidance for cutoff values for fasting glucose and random glucose. The ADA defines fasting as no caloric intake for at least 8 hours. Fas ting plasma glucose results between 100 to 125 mg/dL indicate increased risk for diabetes (prediabetes). Fasting plasma glucose results greater than or equal to 126 mg/dL meet the criteria for diagnosis of diabetes. In the absence of unequivocal hyperglycemia, results should be confirmed by repeat testing. In a patient with classic symptoms of hyperglycemia or hyperglycemic crisis, random plasma glucose results greater than or equal to 200 mg/dL meet the criteria for diagnosis of diabetes. Reference: Standards of Medical Care in Diabetes 2016, [place] [employer]. Diabetes Care. 2016.39(Suppl 1). LAB BUN 7-21 mg/dL BUN 12 LAB CRET 0.58-0.96 mg/dL Creatinine 0.87 LAB NA 136-144 mmol/L Sodium 140 LAB K 3.7-5.1 mmol/L Potassium 4.4 LAB CL 97-105 mmol/L Chloride 104 LAB CO2 22-30 mmol/L CO2 26 LAB AGAP 9-18 mmol/L Anion Gap 10 LAB CA 8.5-10.2 mg/dL Calcium, Total 9.1 LAB GFRAA eGFR- Amer. >60 LAB GFRNAA . eGFR-All Other Races >60 Result Comment: eGFR (Estimated GFR) Units of measure: mL/min/1.73 meters squared eGFR is derived from the reexpressed MDRD Study equation using the following parameters: serum creatinine, age, gender and race. The creatinine assay has been calibrated to be traceable to IDWA. An eGFR <60 mL/min/1.73m2 for >3 months is consistent with chronic kidney disease. Refer to KDOQI guidelines for clinical interpretation. In patients with unstable renal function, e.g. those with acute kidney injury, the eGFR may not accurately reflect actual GFR. Performed By: #### CBCDIF, BMP #### [facility] [email or web address] [address] [place], [place] [address] PROGRESS Observed: 05/07/2018 Status: COMPLETED Source: [place] 8:27 AM [facility] REPOSITORY HNO ID: [id number] Author: Angelita Dotson Psr Service: (none) Author Type: (none) Type: Progress Notes Filed: 05/07/2018 8:27 AM Note Text: pap logged, letter sent. Angelita Dotson Psr HPV W/GENOTYPE Collected: 04/30/2018 Status: F Source: [place] 4:09 PM [facility] REPOSITORY TYPE CODE TESTS RESULT OUT OF REFERENCE UNITS RANGE LAB HPVT16 HPV HighRisk Negative for Type 16 HPV DNA high risk type 16 by PCR. LAB HPVT18 HPV HighRisk Negative for Type 18 HPV DNA high risk type 18 by PCR. LAB HPVHRO HPV HighRisk Negative for Other HPV DNA high risk types: 31,33,35,39,45 ,51,52,56,58,5 9,66,68 by PCR. Result Comment: This test was developed and its performance characteristics determined by [facility]'s [facility] [place] ([facility]). It has not been cleared or approved by the FDA. -[facility] is regulated under CLIA as qualified to perform high-complexity testing. This test is used for clinical purposes. It should not be regarded as inv estigational or for research. Performed By: #### HPVHRR #### [facility] [email or web address] [employer] [address] [place], [place] [address] CYTOLOGY Observed: 04/30/2018 Status: C Source: [place] 4:09 PM [facility] REPOSITORY ADDITIONAL PROCEDURES PRESENT Specimen originated from [facility] Specimen #: [id number] Submitting Physician: SONAL SPEARS CNP SPECIMEN SUBMITTED A: CERVICAL, SCREENING, FLUID FINAL DIAGNOSIS A. CERVICAL, SCREENING, FLUID Satisfactory for interpretation. Negative for intraepithelial lesion or malignancy. This specimen has been analyzed by the ThinPrep Imaging System, an automated imaging and review system, which assists the laboratory in evaluating cells on ThinPrep Pap tests. Following automated imaging, selected hwang from every slide are reviewed by a pipe installer. RM Levy (ASCP) (Electronic Signature) ADDITIONAL PROCEDURE(S) HUMAN PAPILLOMA VIRUS Date Ordered: 05/02/2018 Date Reported: 05/03/2018 Procedure Results and Interpretation Negative for HPV DNA high risk type 16 by PCR. Negative for HPV DNA high risk type 18 by PCR. Negative for HPV DNA high risk types: 31,33,35,39,45,51,52,56,58,59,66,68 by PCR. This test was developed and its performance characteristics determined by [facility] [place] ([facility]). It has not been cleared or approved by the FDA. RT-[facility] is regulated under CLIA as qualified to perform high-complexity testing. This test is used for clinical purposes. It should not be regarded as investigational or for research. 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 The Pap Smear is a screening test for cervical cancer. False negative results occur with all screening tests, emphasizing the need for rescreening at recommended intervals, and clinical correlation. PROGRESS Observed: 04/30/2018 Status: COMPLETED Source: [place] 3:47 PM [facility] HNO ID: [id number] Author: Sonal (Paula) Azra Service: (none) Author Type: Nurse Practitioner Type: Progress Notes Filed: 04/30/2018 5:03 PM Note Text: Manuel Hanley is a 37 year old who presents for her annual gynecologic exam without complaints. Used to work at [employer] - now works [employer]. Menses: cycles every 28 days and 3-4 days of flow. Contraception: tubal ligation HPV vaccine: No Last Pap: 2011 normal HPV: negative History of abnormal pap: No Last mammogram: 2017 due to breast lump - mammogram negative Sexually active: Yes Patient concerns for STD exposure: No. Time with current partner: 17 years Pain with intercourse: No Postcoital bleeding: No Exercise: 3-4 times a week for 30-45 minutes. Type: walking, 5Ks Diet: balanced Seatbelt use: Yes Obstetric History T0 L2 SAB0 TAB0 Ectopic0 Multiple0 Live Births0 PAST MEDICAL HISTORY Diagnosis Date - Abnormal maternal glucose tolerance, antepartum 1995 - Insomnia, unspecified - Myopia - Tension headache PAST SURGICAL HISTORY Procedure Laterality Date - LASIK 04/02/2014 FS OD DVA by Dr Chaves/Dr Fagan attending - LIGATE FALLOPIAN TUBE 2004 Tubal ligation - PAST SURGICAL HISTORY OF age 20 +/- wisdom teeth - PRK 04/02/2014 with [facility] OS DVA by Dr Chaves/Dr Fagan attending FAMILY HISTORY Problem Relation Age of Onset - Diabetes Mother - None Father from ? polimyelitis? (see 04/25/2011) - Cancer Maternal Grandfather unknown primary SOCIAL HISTORY Social History Substance Use Topics - Smoking status: Never Smoker - Smokeless tobacco: Never Used - Alcohol use Yes Comment: occasion REVIEW OF SYSTEMS Abdomen: No abdominal pain, nausea, vomiting, diarrhea, or constipation. No bloating, early satiety, indigestion, or increased flatulence. Bladder: No dysuria, gross hematuria, urinary frequency, urinary urgency, or incontinence. Breast: No breast lumps, nipple d/c, overlying skin changes, redness or skin retraction. Allergies and current medication updated:Yes EXAM: BP 126/82 Ht 5' .63 (1.54m) Wt 161 lb 1.6 oz (73.1kg) LMP 04/21/2018 BMI 30.81 kg/(m2). GENERAL: pleasant, female in no apparent distress HEENT: Normocephalic, atraumatic, mucus membranes moist and no lesions NECK: Supple, full range of motion, no adenopathy and thyroid normal DERMATOLOGY: Normal, without lesions, non-icteric and non-hirsute BREAST: soft, non-tender, symmetric, no dominant mass, normal nipple-areolar complex, no lymphadenopathy and no nipple discharge CHEST: Normal inspiratory effort ABDOMEN: soft, non-tender and no masses PELVIC: external genitalia normal, normal Bartholin's glands, urethra, [place]'s glands, no vulvar lesions, no cervical lesions, good vaginal support, physiologic discharge present, normal appearing perineal body and perianal region BIMANUAL: uterus normal size, shape and consistency, no adnexal masses and non-tender RECTOVAGINAL: deferred. NEURO: alert and oriented x3,exam grossly non-focal EXTREMITIES: normal ASSESSMENT/PLAN: 1) Health maintenance: Pap done with HPV. Nutrition, exercise and routine health maintenance exams reviewed. Calcium/Vitamin D supplementation information provided. 2) Contraception: tubal ligation. Contraceptive options reviewed and information provided. 3) STD screening: Declined STD check. 4) Follow up one year or sooner as needed Sonal Spears APRN.AIRPLANE CABIN ATTENDANT CNOV Observed: 04/30/2018 Status: COMPLETED Source: [place] 3:30 PM [facility] REPOSITORY Office Visit (WOOB) MANUEL HANLEY ([id number]) 1980 F Date Time Provider Department 04/30/18 3:30 PM SONAL SPEARS (AIRPLANE CABIN ATTENDANT) WOOB During your visit today, we recorded the following information about you: Blood pressure Weight Height Last Period 126/82 73.1 kg 1.54 m 04/21/18 Sonal Spears APRN.AIRPLANE CABIN ATTENDANT 04/30/2018 5:03 PM Signed Manuel Hanley is a 37 year old who presents for her annual gynecologic exam without complaints. Used to work at [employer] - now works [place] [employer]. Menses: cycles every 28 days and 3-4 days of flow. Contraception: tubal ligation HPV vaccine: No Last Pap: 2011 normal HPV: negative History of abnormal pap: No Last mammogram: 2017 due to breast lump - mammogram negative Sexually active: Yes Patient concerns for STD exposure: No. Time with current partner: 17 years Pain with intercourse: No Postcoital bleeding: No Exercise: 3-4 times a week for 30-45 minutes. Type: walking, 5Ks Diet: balanced Seatbelt use: Yes Obstetric History T0 L2 SAB0 TAB0 Ectopic0 Multiple0 Live Births0 PAST MEDICAL HISTORY Diagnosis Date - Abnormal maternal glucose tolerance, antepartum 1995 - Insomnia, unspecified - Myopia - Tension headache PAST SURGICAL HISTORY Procedure Laterality Date - LASIK 04/02/2014 FS OD DVA by Dr Chaves/Dr Fagan attending - LIGATE FALLOPIAN TUBE 2005 Tubal ligation - PAST SURGICAL HISTORY OF age 20 +/- wisdom teeth - PRK 04/02/2014 with [facility] OS DVA by Dr Chaves/Dr Fagan attending FAMILY HISTORY Problem Relation Age of Onset - Diabetes Mother - None Father from ? polimyelitis? (see 04/25/2011) - Cancer Maternal Grandfather unknown primary SOCIAL HISTORY Social History Substance Use Topics - Smoking status: Never Smoker - Smokeless tobacco: Never Used - Alcohol use Yes Comment: occasion REVIEW OF SYSTEMS Abdomen: No abdominal pain, nausea, vomiting, diarrhea, or constipation. No bloating, early satiety, indigestion, or increased flatulence. Bladder: No dysuria, gross hematuria, urinary frequency, urinary urgency, or incontinence. Breast: No breast lumps, nipple d/c, overlying skin changes, redness or skin retraction. Allergies and current medication updated:Yes EXAM: BP 126/82 Ht 5' .63 (1.54m) Wt 161 lb 1.6 oz (73.1kg) LMP 04/21/2018 BMI 30.81 kg/(m2). GENERAL: pleasant, female in no apparent distress HEENT: Normocephalic, atraumatic, mucus membranes moist and no lesions NECK: Supple, full range of motion, no adenopathy and thyroid normal DERMATOLOGY: Normal, without lesions, non-icteric and non-hirsute BREAST: soft, non-tender, symmetric, no dominant mass, normal nipple-areolar complex, no lymphadenopathy and no nipple discharge CHEST: Normal inspiratory effort ABDOMEN: soft, non-tender and no masses PELVIC: external genitalia normal, normal Bartholin's glands, urethra, [place]'s glands, no vulvar lesions, no cervical lesions, good vaginal support, physiologic discharge present, normal appearing perineal body and perianal region BIMANUAL: uterus normal size, shape and consistency, no adnexal masses and non-tender RECTOVAGINAL: deferred. NEURO: alert and oriented x3,exam grossly non-focal EXTREMITIES: normal ASSESSMENT/PLAN: 1) Health maintenance: Pap done with HPV. Nutrition, exercise and routine health maintenance exams reviewed. Calcium/Vitamin D supplementation information provided. 2) Contraception: tubal ligation. Contraceptive options reviewed and information provided. 3) STD screening: Declined STD check. 4) Follow up one year or sooner as needed Sonal Spears APRN.PAULA Spears APRN.PAULA 04/30/2018 4:09 PM Signed Calcium and Vitamin D Supplementation (from the National Institutes of Health Office of Dietary Supplements 2010) Calcium is required by the body for blood vessel, muscle, hormone and nerve functioning. Most of the body's calcium is stored in the bones and teeth where it supports structure and function. Bone is continuously broken down and reformed. When bone breakdown exceeds formation, especially in postmenopausal women, bone loss can increase the risk of osteoporosis and fractures. In addition to low calcium intake, women who smoke, have a family history of osteoporosis, are thin, or , or who take certain medications such as cancer chemotherapy, seizure mediations and steroids are at increased risk of osteoporosis. The calcium requirements in women change with age. The National Institutes of Health (NIH) recommends: 1000mg elemental calcium for premenopausal women age 19-50 1200mg elemental calcium for postmenopausal women and all women over 50 Milk, yogurt, and cheese are rich natural sources of calcium and are the major food contributors in the [place]. For example, 8oz of milk (whole, lowfat or skim) contains about 300mg calcium, 8oz of yogurt contains 415mg. Nondairy sources include salmon and sardines and vegetables, such as Turkish cabbage, kale, and broccoli. Foods fortified with calcium include many fruit juices, tofu and cereals. For more food calcium content information, visit http://ods.od.nih.gov/factsheets/calcium. Calcium supplements come in several different forms. Remember that the recommendations are for millgrams (mg) of elemental calcium which may be less than the total weight of the supplement. The amount of elemental calcium is required to be printed on the label. Calcium carbonate is the least expensive form. It must be taken on a full stomach to be properly absorbed. Some patients may experience gas or constipation. Calcium phosphate and calcium citrate may be taken either with or without food and tend to have less side effects but are generally more expensive. Because of its ability to neutralize stomach acid, calcium carbonate is found in some tpih-vld-egghiay antacid products, such as Tums? and Rolaids?. Depending on its strength, each chewable pill or softchew provides 200 to 400 mg of elemental calcium. The percentage of calcium absorbed depends on the total amount of elemental calcium consumed at one time. Absorption is highest in doses <500mg. So a woman who takes 1,000mg/day of calcium from supplements should split the dose and take 500mg at two separate times during the day. Too much calcium can cause kidney stones, constipation, difficulty absorbing other nutrients and calcium buildup in blood vessels. Women under 50 should not exceed 2500mg/day (2000mg/day for women over 50) of calcium from food and supplements. Excessive alcohol and caffeine intake can inhibit absorption of calcium. Calcium can reduce the absorption of some medications if taken at the same time of day (bisphosphonates, thyroid medication, Phenytoin and other seizure medications, some antibiotics and iron supplements). Vitamin D promotes calcium absorption in the gut and maintains adequate blood levels of calcium and phosphate for normal bone growth and bone remodeling. Vitamin D also helps regulate cell growth as well as nerve, muscle and immune system function. Vitamin D is produced in the skin as a result of ultraviolet sunlight rays and must be altered in the liver and kidney to become its active form. Recommended intake according to the National Institutes of Health is 600 International Units (IU) for girls and women ages 1-70 and 800 IU for women over 70. Very few foods in nature contain vitamin D. The flesh of fatty fish (such as salmon, tuna, and mackerel) and fish liver oils are among the best sources. Small amounts of vitamin D are found in beef liver, cheese, mushrooms and egg yolks. Most people meet at least some of their vitamin D needs through exposure to sunlight. Season, time of day, length of day, cloud cover, smog, skin melanin content, and sunscreen are among the factors that affect UV radiation exposure and vitamin D synthesis. Despite the importance of the sun for vitamin D synthesis, it is prudent to limit exposure of skin to sunlight and avoid tanning beds. UV radiation is a carcinogen responsible for most of the estimated 1.5 million skin cancers that occur annually in the [place]. Lifetime cumulative UV damage to skin is also responsible for some age-associated dryness and other cosmetic changes. In supplements and fortified foods, vitamin D is available in two forms, D2 (ergocalciferol) and D3 (cholecalciferol). The two are equivalent at normal supplement doses. For women who require high supplement doses because of vitamin D deficiency, D3 may work better to raise blood levels. Some medications can prevent proper absorption of Vitamin D. These include laxatives, corticosteroids like prednisone, the seizure drugs phenobarbital and phenytoin, the weight-loss drug orlistat ( Xenical? and AlliTM) and the cholesterol-lowering drug cholestyramine (Questran?, LoCholest?, and Prevalite?). Talk to your doctor about adjusting your recommended daily vitamin D dosage if you take these medications. You should not exceed 4000 mg of vitamin D supplementation daily unless specifically prescribed by your doctor. Angelita Dotson Psr 05/07/2018 8:27 AM Signed pap logged, letter sent. Angelita Dotson Psr Referring Provider: SELF [[id number]] Allergies As of Date: 04/30/2018 Noted Allergy Reaction AMOXACILLIN (AMOXICILLIN) 08/31/2008 4 - Hives PAXIL (PAROXETINE HCL) 10/15/2017 8 - GI Upset Comments: Nausea, vomiting. PERCOCET (OXYCODONE-ACETAMINOPHEN)04/08/2014 11 - Vomiting ZOLOFT (SERTRALINE HCL) 10/15/2017 5 - Intolerance Comments: Nausea, trouble eating Date Reviewed: 04/30/2018 Reviewed by: Sonal Spears - Fully Assessed Primary Visit Diagnosis:Encounter for gynecological examination (general) (routine) without abnormal findings [Z01.419] Other Visit Diagnoses:Screening for cervical cancer [Z12.4] Encounter for screening for human papillomavirus (HPV) [Z11.51] Intertrigo [L30.4] Order(s):PAP FLUID CERVICAL SCREENING [[id number]] Order #: [id number] #:[id number] nystatin (NYSTOP) powderApply 1 application to affected area four times daily.Disp: 1 BottleRfl: 2 HPV W/GENOTYPE [SQHPVHRR] Order #: [id number]. #:[id number] Prescriptions as of 04/30/2018 Sig: NYSTATIN 100,000 UNIT/GRAM TO* Apply 1 application to affect* LORAZEPAM 0.5 MG TABLET Take 1 tablet by mouth twice * RANITIDINE 150 MG TABLET Take 1 tablet by mouth daily * Problem List As Of Date 04/30/2018 Noted Resolved Impaired fasting glucose [R73.01] INVALID FOR* Priority: A ABN GLUCOSE-ANTEPARTUM [O99.810] TENSION HEADACHE [G44.209] INVALID FOR* Insomnia, unspecified [G47.00] INVALID FOR* Priority: B Routine general medical examination at a health*INVALID FOR*09/25/2013 Priority: A Class: Chronic More... Routine gynecological examination [Z01.419] INVALID FOR*09/25/2013 Priority: B Class: Chronic More... Migraine, unspecified, without mention of intra*INVALID FOR* Priority: A Anxiety [F41.9] INVALID FOR* Priority: A Elevated blood pressure (not hypertension) [R03*INVALID FOR* Priority: A Left upper extremity numbness [R20.0] INVALID FOR* Counseling and coordination of care [Z71.89] INVALID FOR*07/09/2015 More... Cervicothoracic somatic dysfunction [M99.01] INVALID FOR* Neck pain [M54.2] INVALID FOR* Muscle tension headache [G44.209] INVALID FOR* Other instructions from your clinician: Calcium and Vitamin D Supplementation (from the National Institutes of Health Office of Dietary Supplements 2010) Calcium is required by the body for blood vessel, muscle, hormone and nerve functioning. Most of the body's calcium is stored in the bones and teeth where it supports structure and function. Bone is continuously broken down and reformed. When bone breakdown exceeds formation, especially in postmenopausal women, bone loss can increase the risk of osteoporosis and fractures. In addition to low calcium intake, women who smoke, have a family history of osteoporosis, are thin, or , or who take certain medications such as cancer chemotherapy, seizure mediations and steroids are at increased risk of osteoporosis. The calcium requirements in women change with age. The National Institutes of Health (NIH) recommends: 1000mg elemental calcium for premenopausal women age 19-50 1200mg elemental calcium for postmenopausal women and all women over 50 Milk, yogurt, and cheese are rich natural sources of calcium and are the major food contributors in the [place]. For example, 8oz of milk (whole, lowfat or skim) contains about 300mg calcium, 8oz of yogurt contains 415mg. Nondairy sources include salmon and sardines and vegetables, such as Turkish cabbage, kale, and broccoli. Foods fortified with calcium include many fruit juices, tofu and cereals. For more food calcium content information, visit http://ods.od.nih.gov/factsheets/calcium. Calcium supplements come in several different forms. Remember that the recommendations are for millgrams (mg) of elemental calcium which may be less than the total weight of the supplement. The amount of elemental calcium is required to be printed on the label. Calcium carbonate is the least expensive form. It must be taken on a full stomach to be properly absorbed. Some patients may experience gas or constipation. Calcium phosphate and calcium citrate may be taken either with or without food and tend to have less side effects but are generally more expensive. Because of its ability to neutralize stomach acid, calcium carbonate is found in some qumo-dct-phfkoka antacid products, such as Tums? and Rolaids?. Depending on its strength, each chewable pill or softchew provides 200 to 400 mg of elemental calcium. The percentage of calcium absorbed depends on the total amount of elemental calcium consumed at one time. Absorption is highest in doses <500mg. So a woman who takes 1,000mg/day of calcium from supplements should split the dose and take 500mg at two separate times during the day. Too much calcium can cause kidney stones, constipation, difficulty absorbing other nutrients and calcium buildup in blood vessels. Women under 50 should not exceed 2500mg/day (2000mg/day for women over 50) of calcium from food and supplements. Excessive alcohol and caffeine intake can inhibit absorption of calcium. Calcium can reduce the absorption of some medications if taken at the same time of day (bisphosphonates, thyroid medication, Phenytoin and other seizure medications, some antibiotics and iron supplements). Vitamin D promotes calcium absorption in the gut and maintains adequate blood levels of calcium and phosphate for normal bone growth and bone remodeling. Vitamin D also helps regulate cell growth as well as nerve, muscle and immune system function. Vitamin D is produced in the skin as a result of ultraviolet sunlight rays and must be altered in the liver and kidney to become its active form. Recommended intake according to the National Institutes of Health is 600 International Units (IU) for girls and women ages 1-70 and 800 IU for women over 70. Very few foods in nature contain vitamin D. The flesh of fatty fish (such as salmon, tuna, and mackerel) and fish liver oils are among the best sources. Small amounts of vitamin D are found in beef liver, cheese, mushrooms and egg yolks. Most people meet at least some of their vitamin D needs through exposure to sunlight. Season, time of day, length of day, cloud cover, smog, skin melanin content, and sunscreen are among the factors that affect UV radiation exposure and vitamin D synthesis. Despite the importance of the sun for vitamin D synthesis, it is prudent to limit exposure of skin to sunlight and avoid tanning beds. UV radiation is a carcinogen responsible for most of the estimated 1.5 million skin cancers that occur annually in the [place]. Lifetime cumulative UV damage to skin is also responsible for some age-associated dryness and other cosmetic changes. In supplements and fortified foods, vitamin D is available in two forms, D2 (ergocalciferol) and D3 (cholecalciferol). The two are equivalent at normal supplement doses. For women who require high supplement doses because of vitamin D deficiency, D3 may work better to raise blood levels. Some medications can prevent proper absorption of Vitamin D. These include laxatives, corticosteroids like prednisone, the seizure drugs phenobarbital and phenytoin, the weight-loss drug orlistat ( Xenical? and AlliTM) and the cholesterol-lowering drug cholestyramine (Questran?, LoCholest?, and Prevalite?). Talk to your doctor about adjusting your recommended daily vitamin D dosage if you take these medications. You should not exceed 4000 mg of vitamin D supplementation daily unless specifically prescribed by your doctor. Prescriptions ordered this encounter Disp Refills Start End NYSTATIN 100,000 UNIT/GRAM TOPICAL P* 1 Krishna* 2 04/30/2018 Route: TOPICAL Sig: Apply 1 application to affected area four times daily. Medications Discontinued During This Encounter busPIRone (BUSPAR) 5 mg tablet 30 t* 2 04/08/2018 04/30/2018 Route: ORAL Sig: Take 1 tablet by mouth every 8 hours as needed. Patient not taking: Reported on 04/22/2018 Disc: Reason for discontinue is not on file. clotrimazole-betamethasone (LOTRISON* 15 g 1 12/05/2017 04/30/2018 Route: TOPICAL Sig: Apply 1 application to affected area twice daily. UNTIL CLEAR FOR UP TO 2-3 WEEKS Disc: Reason for discontinue is not on file. Disposition: Return in 1 year (on 04/30/2019) for Annual Exam. Follow-up and Disposition History Recorded Letter Text Sonal Spears [facility] [address] [place] [id number] Manuel Hanley [address] [place] [address] 05/07/2018 [facility]: [id number] Dear Manuel, We are pleased to inform you that your recent Pap Test was within normal limits. Because Pap tests are so effective in the early detection of cervical cancer, you are encouraged to continue having the test at regular intervals. You will be due for a 1 year Gynecological Exam after this date 04/30/2019. If you have any questions regarding the above information, do not hesitate to call our office at between the hours of 8:00 a.m. and 5:00 p.m. Sincerely, Sonal Spears CNP Encounter Status:Closed by SONAL SPEARS on 04/30/18 PROGRESS Observed: 04/22/2018 Status: COMPLETED Source: [facility] 2:59 PM [facility] REPOS[facility] HNO ID: [id number] Author: Venessa Abel (PaLalithaC) Antonino Service: (none) Author Type: Physician Blindstitch Hemmer Type: Progress Notes Filed: 04/22/2018 3:21 PM Note Text: 37 year old female with c/o 1. Neck and upper back pain over last 3-4 days, similar to chronic. Under stress with multiple jobs. 2. Heartburn right anterior chest radiating into back, usually after eating pickles. No acid. No increased eructation. Sometimes associated with anxiety. Getting palpitations/ racing heart on occasion. Nothing tried. Goes away in a few hours. No change in bowels. Persistent marital stress. HISTORIES FAMILY HISTORY Problem Relation Age of Onset - Diabetes Mother - None Father from ? polimyelitis? (see 04/25/2011) - Cancer Maternal Grandfather unknown primary PAST MEDICAL HISTORY Diagnosis Date - Abnormal maternal glucose tolerance, antepartum 1995 - Insomnia, unspecified - Myopia - Tension headache PAST SURGICAL HISTORY Procedure Laterality Date - LASIK 04/02/2014 FS OD DVA by Dr Chaves/Dr Fagan attending - LIGATE FALLOPIAN TUBE 2004 Tubal ligation - PAST SURGICAL HISTORY OF age 20 +/- wisdom teeth - PRK 04/02/2014 with [facility] OS DVA by Dr Chaves/Dr Fagan attending Social History Marital status: Spouse name: sebas Years of education: Number of children: 2 Occupational History Occupation Employer Comment [employer]* Social History Main Topics Smoking status: Never Smoker Smokeless tobacco: Never Used Alcohol use: Yes Comment: occasion Drug use: No Sexual activity: Yes Partners with: Male control/protection: Tubal Ligation Comment: Monogamous with of 8 years. ACTIVE PROBLEM LIST Impaired Fasting Glucose Abnormal Maternal Glucose Tolerance, Antepartum Tension Headache Insomnia, Unspecified Migraine, Unspecified, Without Mention of Intractable Migraine Without Mention of Status Migrainosus Anxiety Elevated Blood Pressure (Not Hypertension) Left Upper Extremity Numbness Cervicothoracic Somatic Dysfunction Neck Pain Muscle Tension Headache Current Outpatient Prescriptions: busPIRone (BUSPAR) 5 mg tablet Take 1 tablet by mouth every 8 hours as needed. (Patient not taking: Reported on 04/22/2018 ) Disp: 30 tablet Rfl: 2 clotrimazole-betamethasone (LOTRISONE) cream Apply 1 application to affected area twice daily. UNTIL CLEAR FOR UP TO 2-3 WEEKS Disp: 15 g Rfl: 1 No current facility-administered medications for this visit. PAP EVERY 5 YEARS due on 07/02/2017 HPV EVERY 5 YEARS due on 07/02/2017 EXAM: BP 122/82 Pulse 68 Resp 14 Pleasant adult owman in no acute distress. Alert and oriented all spheres. Normal affect and cognition. Speech normal. No deficits to learning or comprehension. Skin warm, dry, pink to lips and nailbeds. Normal turgor. Respirations regular and unlabored. Neck supple. Has fair ROM. TTP's in neck and upper shoulders and back. Chest CTA. HRRR without murmur or gallop. Abdomen: active bowel sounds throughout, soft, nontender, no masses or organomegaly. No CVAT. Extrem: no clubbing, cyanosis, edema. Extremities are warm and pink with prompt capillary refill. OMT: myofascial release with HVLA cervical and thoracic with improvement. ASSESSMENT/PLAN: 1. Heartburn - ICD9: 787.1, ICD10: R12 (primary diagnosis) Trial Zantac. Anxiety factor. 2. Adjustment disorder with anxiety - ICD9: 309.24, ICD10: F43.22 - LORAZEPAM 0.5 MG TABLET 3. Cervicothoracic somatic dysfunction - ICD9: 739.1, ICD10: M99.01 F/u prn. M ESPERANZA Mariano Observed: 04/22/2018 Status: COMPLETED Source: [place] 2:00 PM [facility] [place] REPOSITORY Office Visit ([facility]) DAYANMANUEL ([id number]) 1980 F Date Time Provider Department 04/22/18 2:00 PM Venessa MUÑIZ) ASHLEY During your visit today, we recorded the following information about you: Pulse Respiration Blood pressure 68/minute 14/minute 122/82 M Colten Muñiz PA-C 04/22/2018 3:21 PM Signed 37 year old female with c/o 1. Neck and upper back pain over last 3-4 days, similar to chronic. Under stress with multiple jobs. 2. Heartburn right anterior chest radiating into back, usually after eating pickles. No acid. No increased eructation. Sometimes associated with anxiety. Getting palpitations/ racing heart on occasion. Nothing tried. Goes away in a few hours. No change in bowels. Persistent marital stress. HISTORIES FAMILY HISTORY Problem Relation Age of Onset - Diabetes Mother - None Father from ? polimyelitis? (see 04/25/2011) - Cancer Maternal Grandfather unknown primary PAST MEDICAL HISTORY Diagnosis Date - Abnormal maternal glucose tolerance, antepartum 1995 - Insomnia, unspecified - Myopia - Tension headache PAST SURGICAL HISTORY Procedure Laterality Date - LASIK 04/02/2014 FS OD DVA by Dr Chaves/Dr Fagan attending - LIGATE FALLOPIAN TUBE 2005 Tubal ligation - PAST SURGICAL HISTORY OF age 20 +/- wisdom teeth - PRK 04/02/2014 with [facility] OS DVA by Dr Chaves/Dr Fagan attending Social History Marital status: Spouse name: sebas Years of education: Number of children: 2 Occupational History Occupation Employer Comment [employer]* Social History Main Topics Smoking status: Never Smoker Smokeless tobacco: Never Used Alcohol use: Yes Comment: occasion Drug use: No Sexual activity: Yes Partners with: Male control/protection: Tubal Ligation Comment: Monogamous with of 8 years. ACTIVE PROBLEM LIST Impaired Fasting Glucose Abnormal Maternal Glucose Tolerance, Antepartum Tension Headache Insomnia, Unspecified Migraine, Unspecified, Without Mention of Intractable Migraine Without Mention of Status Migrainosus Anxiety Elevated Blood Pressure (Not Hypertension) Left Upper Extremity Numbness Cervicothoracic Somatic Dysfunction Neck Pain Muscle Tension Headache Current Outpatient Prescriptions: busPIRone (BUSPAR) 5 mg tablet Take 1 tablet by mouth every 8 hours as needed. (Patient not taking: Reported on 04/22/2018 ) Disp: 30 tablet Rfl: 2 clotrimazole-betamethasone (LOTRISONE) cream Apply 1 application to affected area twice daily. UNTIL CLEAR FOR UP TO 2-3 WEEKS Disp: 15 g Rfl: 1 No current facility-administered medications for this visit. PAP EVERY 5 YEARS due on 07/02/2017 HPV EVERY 5 YEARS due on 07/02/2017 EXAM: BP 122/82 Pulse 68 Resp 14 Pleasant adult owman in no acute distress. Alert and oriented all spheres. Normal affect and cognition. Speech normal. No deficits to learning or comprehension. Skin warm, dry, pink to lips and nailbeds. Normal turgor. Respirations regular and unlabored. Neck supple. Has fair ROM. TTP's in neck and upper shoulders and back. Chest CTA. HRRR without murmur or gallop. Abdomen: active bowel sounds throughout, soft, nontender, no masses or organomegaly. No CVAT. Extrem: no clubbing, cyanosis, edema. Extremities are warm and pink with prompt capillary refill. OMT: myofascial release with HVLA cervical and thoracic with improvement. ASSESSMENT/PLAN: 1. Heartburn - ICD9: 787.1, ICD10: R12 (primary diagnosis) Trial Zantac. Anxiety factor. 2. Adjustment disorder with anxiety - ICD9: 309.24, ICD10: F43.22 - LORAZEPAM 0.5 MG TABLET 3. Cervicothoracic somatic dysfunction - ICD9: 739.1, ICD10: M99.01 F/u prn. M ESPERANZA Mariano PA-C 04/22/2018 3:20 PM Signed For heartburn or Gastroesophageal Reflux (GERD): You need to gradually stop caffeine products which make heart burn worse by increasing acid and causing more activity in the stomach, creating more splash of acid into the esophagus. Avoid alcoholic beverages until symptoms improve, and generally limit to 1 or 2 a day. Obesity is a moreira factor in worsening heart burn and reflux. If you are overweight, a gradual weight reduction program should be implemented. Fad diets are not helpful, and may make you feel worse. Weight loss should be accomplished by modest reduction in calories, particularly in high carbohydrate or fatty foods, and through increased aerobic exercise. Get 30-60gm fiber per day in diet through beefy fruits and vegetables, beans, legumes, and whole grains. No more than 30% of calories should come from fat: 10% or less saturated, 10% or less polyunstaurated and the rest from monounsaturated fats. Avoid food high in trans-fats. Start an exercise program involving all four extremities in motion if possible, gradually increasing to goal of 30 minutes of sustained aerobic activity 3-4 days/ week. You should try to avoid over eating or laying down after a meal. Stay bolt upright for at least 90 minutes after eating. going for a walk may help food to settle. Avoid high acid foods such as citrus, tomatoes,sour candies, sugary foods and chocolate. Spicy foods, peppermint and salty or seasoned snacks may also cause problems. Put the head of your bed up on 4-6 inch blocks to help keep acid from coming up in your throat. Antacids or baking soda may help for brief occasional heartburn, but should not be used frequent symptoms as the stomach may detect the change in pH and secrete more acid. Products such as H2 blockers (Zantac, Tagamet, Pepcid, Axid, etc.) or Prilosec OTC may help. If symptoms aren't relieved with these choices over a few weeks of use, you should report this to your medical provider. Referring Provider: SELF [[id number]] Allergies As of Date: 04/22/2018 Noted Allergy Reaction AMOXACILLIN (AMOXICILLIN) 08/31/2008 4 - Hives PAXIL (PAROXETINE HCL) 10/15/2017 8 - GI Upset Comments: Nausea, vomiting. PERCOCET (OXYCODONE-ACETAMINOPHEN)04/08/2014 11 - Vomiting ZOLOFT (SERTRALINE HCL) 10/15/2017 5 - Intolerance Comments: Nausea, trouble eating Date Reviewed: 04/22/2018 Reviewed by: Angie Seay LPN - Fully Assessed Reason for Visit: Back Pain [12] Cmt: adjustment Anxiety [9] Cmt: lorazepam refill Reason For Visit History Recorded Primary Visit Diagnosis:Heartburn [R12] Other Visit Diagnoses:Adjustment disorder with anxiety [F43.22] Cervicothoracic somatic dysfunction [M99.01] Order(s):LORazepam (ATIVAN) 0.5 mg tabTake 1 tablet by mouth twice daily for 60 days.Disp: 30 tabletRfl: 1 ranitidine (ZANTAC) 150 mg tabletTake 1 tablet by mouth daily at bedtime.Disp: 90 tabletRfl: 1 Prescriptions as of 04/22/2018 Sig: LORAZEPAM 0.5 MG TABLET Take 1 tablet by mouth twice * RANITIDINE 150 MG TABLET Take 1 tablet by mouth daily * BUSPIRONE 5 MG TABLET Take 1 tablet by mouth every * Patient not taking: Reported on 04/22/2018 CLOTRIMAZOLE-BETAMETHASONE 1 * Apply 1 application to affect* Problem List As Of Date 04/22/2018 Noted Resolved Impaired fasting glucose [R73.01] INVALID FOR* Priority: A ABN GLUCOSE-ANTEPARTUM [O99.810] TENSION HEADACHE [G44.209] INVALID FOR* Insomnia, unspecified [G47.00] INVALID FOR* Priority: B Routine general medical examination at a health*INVALID FOR*09/25/2013 Priority: A Class: Chronic More... Routine gynecological examination [Z01.419] INVALID FOR*09/25/2013 Priority: B Class: Chronic More... Migraine, unspecified, without mention of intra*INVALID FOR* Priority: A Anxiety [F41.9] INVALID FOR* Priority: A Elevated blood pressure (not hypertension) [R03*INVALID FOR* Priority: A Left upper extremity numbness [R20.0] INVALID FOR* Counseling and coordination of care [Z71.89] INVALID FOR*07/09/2015 More... Cervicothoracic somatic dysfunction [M99.01] INVALID FOR* Neck pain [M54.2] INVALID FOR* Muscle tension headache [G44.209] INVALID FOR* Other instructions from your clinician: For heartburn or Gastroesophageal Reflux (GERD): You need to gradually stop caffeine products which make heart burn worse by increasing acid and causing more activity in the stomach, creating more splash of acid into the esophagus. Avoid alcoholic beverages until symptoms improve, and generally limit to 1 or 2 a day. Obesity is a moreira factor in worsening heart burn and reflux. If you are overweight, a gradual weight reduction program should be implemented. Fad diets are not helpful, and may make you feel worse. Weight loss should be accomplished by modest reduction in calories, particularly in high carbohydrate or fatty foods, and through increased aerobic exercise. Get 30-60gm fiber per day in diet through beefy fruits and vegetables, beans, legumes, and whole grains. No more than 30% of calories should come from fat: 10% or less saturated, 10% or less polyunstaurated and the rest from monounsaturated fats. Avoid food high in trans-fats. Start an exercise program involving all four extremities in motion if possible, gradually increasing to goal of 30 minutes of sustained aerobic activity 3-4 days/ week. You should try to avoid over eating or laying down after a meal. Stay bolt upright for at least 90 minutes after eating. going for a walk may help food to settle. Avoid high acid foods such as citrus, tomatoes,sour candies, sugary foods and chocolate. Spicy foods, peppermint and salty or seasoned snacks may also cause problems. Put the head of your bed up on 4-6 inch blocks to help keep acid from coming up in your throat. Antacids or baking soda may help for brief occasional heartburn, but should not be used frequent symptoms as the stomach may detect the change in pH and secrete more acid. Products such as H2 blockers (Zantac, Tagamet, Pepcid, Axid, etc.) or Prilosec OTC may help. If symptoms aren't relieved with these choices over a few weeks of use, you should report this to your medical provider. Prescriptions ordered this encounter Disp Refills Start End LORAZEPAM 0.5 MG TABLET 30 t* 1 04/22/2018 06/21/2018 Class: Print RX Route: ORAL Sig: Take 1 tablet by mouth twice daily for 60 days. RANITIDINE 150 MG TABLET 90 t* 1 04/22/2018 Route: ORAL Sig: Take 1 tablet by mouth daily at bedtime. Medications Discontinued During This Encounter LORazepam (ATIVAN) 0.5 mg tab 30 t* 1 01/24/2018 04/22/2018 Class: Print RX Route: ORAL Sig: Take 1 tablet by mouth twice daily for 60 days. Disc: Reason for discontinue is not on file. Encounter Status:Closed by Venessa MUÑZI PA-C on 04/22/18 CNOV Observed: 04/08/2018 Status: COMPLETED Source: [place] 4:20 PM [facility] REPOSITORY [facility] DAYANMANUEL Landry ([id number]) 1980 F Date Time Provider Department 04/08/18 4:20 PM Venessa MUÑIZ) [facility] During your visit today, we recorded the following information about you: Temperature Pulse Respiration Blood pressure 97.9 degrees 64/minute 16/minute 124/94 Weight Last Period 71.7 kg 03/22/18 Venessa Muñiz PA-C 04/08/2018 7:32 PM Signed 37 year old female with c/o shoulder pain, neck pain over the last 2 days. No radiating pain, numbness or tingling. No loss of strength. Patient's been using [id number] analgesics without improvement. Also requesting refill on BuSpar for anxiety which she is using as needed with success. HISTORIES FAMILY HISTORY Problem Relation Age of Onset - Diabetes Mother - None Father from ? polimyelitis? (see 04/25/2011) - Cancer Maternal Grandfather unknown primary PAST MEDICAL HISTORY Diagnosis Date - Abnormal maternal glucose tolerance, antepartum 1995 - Insomnia, unspecified - Myopia - Tension headache PAST SURGICAL HISTORY Procedure Laterality Date - LASIK 04/02/2014 FS OD DVA by Dr Chaves/Dr Fagan attending - LIGATE FALLOPIAN TUBE 2005 Tubal ligation - PAST SURGICAL HISTORY OF age 20 +/- wisdom teeth - PRK 04/02/2014 with [facility] OS DVA by Dr Chaves/Dr Fagan attending Social History Marital status: Spouse name: sebas Years of education: Number of children: 2 Occupational History Occupation Employer Comment [employer]* Social History Main Topics Smoking status: Never Smoker Smokeless tobacco: Never Used Alcohol use: Yes Comment: occasion Drug use: No Sexual activity: Yes Partners with: Male control/protection: Tubal Ligation Comment: Monogamous with of 8 years. ACTIVE PROBLEM LIST Impaired Fasting Glucose Abnormal Maternal Glucose Tolerance, Antepartum Tension Headache Insomnia, Unspecified Migraine, Unspecified, Without Mention of Intractable Migraine Without Mention of Status Migrainosus Anxiety Elevated Blood Pressure (Not Hypertension) Left Upper Extremity Numbness Cervicothoracic Somatic Dysfunction Neck Pain Muscle Tension Headache Current Outpatient Prescriptions: busPIRone (BUSPAR) 5 mg tablet Take 1 tablet by mouth every 8 hours as needed. Disp: 30 tablet Rfl: 2 clotrimazole-betamethasone (LOTRISONE) cream Apply 1 application to affected area twice daily. UNTIL CLEAR FOR UP TO 2-3 WEEKS Disp: 15 g Rfl: 1 No current facility-administered medications for this visit. PAP EVERY 5 YEARS due on 07/02/2017 HPV EVERY 5 YEARS due on 07/02/2017 EXAM: BP 124/94 Pulse 64 Temp 36.6 ?C (97.9 ?F) (Tympanic) Resp 16 Wt 71.7 kg (158 lb) LMP 03/22/2018 BMI 28.90 kg/m? Pleasant adult woman in no acute distress. Alert and oriented all spheres. Normal affect and cognition. Speech normal. No deficits to learning or comprehension. Skin warm, dry, pink to lips and nailbeds. Normal turgor. Neck is supple, patient has restrictions with lateral rotation in both directions. She also has tender trigger points bilaterally, more so on the left. Also mild restriction and tender trigger points in thoracic ribs and spine. Respirations regular and unlabored. Extrem: no clubbing, cyanosis, edema. Extremities are warm and pink with prompt capillary refill. OMT per request: Myofascial release to tender trigger points, HVLA to cervical and thoracic segments with marked improvement. ASSESSMENT/PLAN: 1. Cervicothoracic somatic dysfunction - ICD9: 739.1, ICD10: M99.01 (primary diagnosis) 2. Neck pain - ICD9: 723.1, ICD10: M54.2 3. Acute pain of left shoulder - ICD9: 719.41, ICD10: M25.512 Ice/ moist heat, lineaments, OTC analgesics as needed,. Stretching and posture reviewed. F/U prn for OMT 4. Anxiety - ICD9: 300.00, ICD10: F41.9 Controlled with prn use. - BUSPIRONE 5 MG TABLET f/u prn Patient (guardian) expressed understanding of instructions and agrees with plan. M Colten Muñiz PA-C Referring Provider: SELF [[id number]] Allergies As of Date: 04/08/2018 Noted Allergy Reaction AMOXACILLIN (AMOXICILLIN) 08/31/2008 4 - Hives PAXIL (PAROXETINE HCL) 10/15/2017 8 - GI Upset Comments: Nausea, vomiting. PERCOCET (OXYCODONE-ACETAMINOPHEN)04/08/2014 11 - Vomiting ZOLOFT (SERTRALINE HCL) 10/15/2017 5 - Intolerance Comments: Nausea, trouble eating Date Reviewed: 04/08/2018 Reviewed by: Bertha Buck LPN - Fully Assessed Reason for Visit: Recheck [92] Cmt: medication for anxiety Neck Pain [135] Primary Visit Diagnosis:Cervicothoracic somatic dysfunction [M99.01] Other Visit Diagnoses:Neck pain [M54.2] Acute pain of left shoulder [M25.512] Anxiety [F41.9] Order(s):busPIRone (BUSPAR) 5 mg tabletTake 1 tablet by mouth every 8 hours as needed.Disp: 30 tabletRfl: 2 Prescriptions as of 04/08/2018 Sig: BUSPIRONE 5 MG TABLET Take 1 tablet by mouth every * CLOTRIMAZOLE-BETAMETHASONE 1 * Apply 1 application to affect* Problem List As Of Date 04/08/2018 Noted Resolved Impaired fasting glucose [R73.01] INVALID FOR* Priority: A ABN GLUCOSE-ANTEPARTUM [O99.810] TENSION HEADACHE [G44.209] INVALID FOR* Insomnia, unspecified [G47.00] INVALID FOR* Priority: B Routine general medical examination at a health*INVALID FOR*09/25/2013 Priority: A Class: Chronic More... Routine gynecological examination [Z01.419] INVALID FOR*09/25/2013 Priority: B Class: Chronic More... Migraine, unspecified, without mention of intra*INVALID FOR* Priority: A Anxiety [F41.9] INVALID FOR* Priority: A Elevated blood pressure (not hypertension) [R03*INVALID FOR* Priority: A Left upper extremity numbness [R20.0] INVALID FOR* Counseling and coordination of care [Z71.89] INVALID FOR*07/09/2015 More... Cervicothoracic somatic dysfunction [M99.01] INVALID FOR* Neck pain [M54.2] INVALID FOR* Muscle tension headache [G44.209] INVALID FOR* Prescriptions ordered this encounter Disp Refills Start End BUSPIRONE 5 MG TABLET 30 t* 2 04/08/2018 Route: ORAL Sig: Take 1 tablet by mouth every 8 hours as needed. Medications Discontinued During This Encounter busPIRone (BUSPAR) 5 mg tablet 30 t* 2 01/12/2018 04/08/2018 Route: ORAL Sig: Take 1 tablet by mouth every 8 hours as needed. Disc: Reason for discontinue is not on file. Encounter Status:Closed by Venessa MUÑIZ PA-C on 04/08/18 PROGRESS Observed: 04/08/2018 Status: COMPLETED Source: [place] 10:20 AM [facility] REPOSITORY HNO ID: [id number] Author: Venessa Able (Esperanza) Antonino Service: (none) Author Type: Physician Blindstitch Hemmer Type: Progress Notes Filed: 04/08/2018 7:32 PM Note Text: 37 year old female with c/o shoulder pain, neck pain over the last 2 days. No radiating pain, numbness or tingling. No loss of strength. Patient's been using [id number] analgesics without improvement. Also requesting refill on BuSpar for anxiety which she is using as needed with success. HISTORIES FAMILY HISTORY Problem Relation Age of Onset - Diabetes Mother - None Father from ? polimyelitis? (see 04/25/2011) - Cancer Maternal Grandfather unknown primary PAST MEDICAL HISTORY Diagnosis Date - Abnormal maternal glucose tolerance, antepartum 1995 - Insomnia, unspecified - Myopia - Tension headache PAST SURGICAL HISTORY Procedure Laterality Date - LASIK 04/02/2014 FS OD DVA by Dr Chaves/Dr Fagan attending - LIGATE FALLOPIAN TUBE 2005 Tubal ligation - PAST SURGICAL HISTORY OF age 20 +/- wisdom teeth - PRK 04/02/2014 with [facility] OS DVA by Dr Chaves/Dr Fagan attending Social History Marital status: Spouse name: sebas Years of education: Number of children: 2 Occupational History Occupation Employer Comment [employer]* Social History Main Topics Smoking status: Never Smoker Smokeless tobacco: Never Used Alcohol use: Yes Comment: occasion Drug use: No Sexual activity: Yes Partners with: Male control/protection: Tubal Ligation Comment: Monogamous with of 8 years. ACTIVE PROBLEM LIST Impaired Fasting Glucose Abnormal Maternal Glucose Tolerance, Antepartum Tension Headache Insomnia, Unspecified Migraine, Unspecified, Without Mention of Intractable Migraine Without Mention of Status Migrainosus Anxiety Elevated Blood Pressure (Not Hypertension) Left Upper Extremity Numbness Cervicothoracic Somatic Dysfunction Neck Pain Muscle Tension Headache Current Outpatient Prescriptions: busPIRone (BUSPAR) 5 mg tablet Take 1 tablet by mouth every 8 hours as needed. Disp: 30 tablet Rfl: 2 clotrimazole-betamethasone (LOTRISONE) cream Apply 1 application to affected area twice daily. UNTIL CLEAR FOR UP TO 2-3 WEEKS Disp: 15 g Rfl: 1 No current facility-administered medications for this visit. PAP EVERY 5 YEARS due on 07/02/2017 HPV EVERY 5 YEARS due on 07/02/2017 EXAM: BP 124/94 Pulse 64 Temp 36.6 ?C (97.9 ?F) (Tympanic) Resp 16 Wt 71.7 kg (158 lb) LMP 03/22/2018 BMI 28.90 kg/m? Pleasant adult woman in no acute distress. Alert and oriented all spheres. Normal affect and cognition. Speech normal. No deficits to learning or comprehension. Skin warm, dry, pink to lips and nailbeds. Normal turgor. Neck is supple, patient has restrictions with lateral rotation in both directions. She also has tender trigger points bilaterally, more so on the left. Also mild restriction and tender trigger points in thoracic ribs and spine. Respirations regular and unlabored. Extrem: no clubbing, cyanosis, edema. Extremities are warm and pink with prompt capillary refill. OMT per request: Myofascial release to tender trigger points, HVLA to cervical and thoracic segments with marked improvement. ASSESSMENT/PLAN: 1. Cervicothoracic somatic dysfunction - ICD9: 739.1, ICD10: M99.01 (primary diagnosis) 2. Neck pain - ICD9: 723.1, ICD10: M54.2 3. Acute pain of left shoulder - ICD9: 719.41, ICD10: M25.512 Ice/ moist heat, lineaments, OTC analgesics as needed,. Stretching and posture reviewed. F/U prn for OMT 4. Anxiety - ICD9: 300.00, ICD10: F41.9 Controlled with prn use. - BUSPIRONE 5 MG TABLET f/u prn Patient (guardian) expressed understanding of instructions and agrees with plan. Venessa Muñiz PA-C PROGRESS Observed: 04/02/2018 Status: COMPLETED Source: [place] 2:36 PM [facility] REPOSITORY HNO ID: [id number] Author: Francisco Villagomez Ma Service: (none) Author Type: (none) Type: Progress Notes Filed: 04/02/2018 2:37 PM Note Text: Venessa Muñiz PA-C-[facility] Care Coordination Note Call to member to update progress in [facility] program. 2 BMI Weight goal to reach between 06/19/18 -08/04/18 of 156 lbs Reminded member of established weight goal, deadline and of the importance of reporting a final documented weight to me. 1lbs away from goal weight watching closely what she eats took pop out of her diet/ allows herself one every once in awhile walking Goal for LDL level is 130 or below. Cholesterol, Total (mg/dL) Date Value 11/21/2012 181 HDL Cholesterol (mg/dL) Date Value 11/21/2012 40 LDL Cholesterol (mg/dL) Date Value 11/21/2012 114 LDL Chol, [place] (mg/dL) Date Value 09/03/2008 78 Triglyceride (mg/dL) Date Value 11/21/2012 133 Is member currently being treated for Hyperlipidemia? No If yes, is lipid panel done annually? No Goal for blood pressure is 140/90 or below. Last 3 Encounter BP Readings: Date: BP: 02/11/2018 134/82 01/24/2018 128/84 12/26/2017 126/104 Is member currently being treated for Hypertension No Has there been a Basic Metabolic Panel done within the last year?No Glucose (mg/dL) Date Value 01/16/2014 108 Potassium (mmol/L) Date Value 01/16/2014 4.1 Sodium (mmol/L) Date Value 01/16/2014 140 Chloride (mmol/L) Date Value 01/16/2014 103 CO2 (mmol/L) Date Value 01/16/2014 25 Creatinine (mg/dL) Date Value 01/16/2014 0.83 BUN (mg/dL) Date Value 01/16/2014 13 Anion Gap (mmol/L) Date Value 01/16/2014 12 Calcium (mg/dL) Date Value 01/16/2014 9.0 Medication Refill Adherence- na HEALTH MAINTENANCE PAP EVERY 5 YEARS due on 07/02/2017 HPV EVERY 5 YEARS due on 07/02/2017 Depression Screening- During the last month or since our last conversation, have you often been bothered by feeling down, depressed or hopeless?No During the last month or since our last conversation, have you been bothered by little interest or pleasure in doing things?No (if answer yes, please complete extended depression screening) Asked member to reach out to me with any questions before next call in 12 weeks if needed. Francisco Villagomez Ma April 02, 2018 2:36 PM [facility] Observed: 04/02/2018 Status: COMPLETED Source: [place] 12:00 AM [facility] REPOSITORY Patient Outreach ([facility]) MANUEL HANLEY ([id number]) 1980 F Date Time Provider Department 04/02/18 FRANCISCO VILLAGOMEZ) ZOE During your visit today, we recorded the following information about you: Francisco Villagomez Ma 04/02/2018 2:37 PM Signed M SH[facility] Mar[facility] Care Coordination Note Call to member to update progress in [facility] program. 2 BMI Weight goal to reach between 06/19/18 -08/04/18 of 156 lbs Reminded member of established weight goal, deadline and of the importance of reporting a final documented weight to me. 1lbs away from goal weight watching closely what she eats took pop out of her diet/ allows herself one every once in awhile walking Goal for LDL level is 130 or below. Cholesterol, Total (mg/dL) Date Value 11/21/2012 181 HDL Cholesterol (mg/dL) Date Value 11/21/2012 40 LDL Cholesterol (mg/dL) Date Value 11/21/2012 114 LDL Chol, [place] (mg/dL) Date Value 09/03/2008 78 Triglyceride (mg/dL) Date Value 11/21/2012 133 Is member currently being treated for Hyperlipidemia? No If yes, is lipid panel done annually? No Goal for blood pressure is 140/90 or below. Last 3 Encounter BP Readings: Date: BP: 02/11/2018 134/82 01/24/2018 128/84 12/26/2017 126/104 Is member currently being treated for Hypertension No Has there been a Basic Metabolic Panel done within the last year?No Glucose (mg/dL) Date Value 01/16/2014 108 Potassium (mmol/L) Date Value 01/16/2014 4.1 Sodium (mmol/L) Date Value 01/16/2014 140 Chloride (mmol/L) Date Value 01/16/2014 103 CO2 (mmol/L) Date Value 01/16/2014 25 Creatinine (mg/dL) Date Value 01/16/2014 0.83 BUN (mg/dL) Date Value 01/16/2014 13 Anion Gap (mmol/L) Date Value 01/16/2014 12 Calcium (mg/dL) Date Value 01/16/2014 9.0 Medication Refill Adherence- na HEALTH MAINTENANCE PAP EVERY 5 YEARS due on 07/02/2017 HPV EVERY 5 YEARS due on 07/02/2017 Depression Screening- During the last month or since our last conversation, have you often been bothered by feeling down, depressed or hopeless?No During the last month or since our last conversation, have you been bothered by little interest or pleasure in doing things?No (if answer yes, please complete extended depression screening) Asked member to reach out to me with any questions before next call in 12 weeks if needed. Francisco Villagomez Ma April 02, 2018 2:36 PM Allergies As of Date: 04/02/2018 Noted Allergy Reaction AMOXACILLIN (AMOXICILLIN) 08/31/2008 4 - Hives PAXIL (PAROXETINE HCL) 10/15/2017 8 - GI Upset Comments: Nausea, vomiting. 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 Routine gynecological examination [Z01.419] INVALID FOR*09/25/2013 Priority: B Class: Chronic More... Migraine, unspecified, without mention of intra*INVALID FOR* Priority: A Anxiety [F41.9] INVALID FOR* Priority: A Elevated blood pressure (not hypertension) [R03*INVALID FOR* Priority: A Left upper extremity numbness [R20.0] INVALID FOR* Counseling and coordination of care [Z71.89] INVALID FOR*07/09/2015 More... Cervicothoracic somatic dysfunction [M99.01] INVALID FOR* Neck pain [M54.2] INVALID FOR* Muscle tension headache [G44.209] INVALID FOR* Encounter Status:Closed by FRANCISCO VILLAGOMEZ MA on 04/02/18 GROUP A STREP BY Collected: 02/11/2018 Status: F Source: [place] PCR 11:19 AM [facility] REPOSITORY TYPE CODE TESTS RESULT OUT OF REFERENCE UNITS RANGE LAB GASSRC Throat Swab GAS Specimen Source LAB PCRGAS Negative for Group A Strep Group A PCR Streptococcus by PCR. Result Comment: This test was developed and its performance characteristics determined by [facility]'s Santosh Katheryn [facility] [place] ([facility]). It has not been cleared or approved by the FDA. [facility] is regulated under CLIA as qualified to perform high-complexity testing. This test is used for clinical purposes. It should not be regarded as inv estigational or for research. Performed By: #### GASPCR #### [facility] [address] [address] PROGRESS Observed: 02/11/2018 Status: COMPLETED Source: [place] 11:14 AM [facility] REPOSITORY HNO ID: [id number] Author: Loco Ren Service: (none) Author Type: Physician Type: Progress Notes Filed: 02/11/2018 11:20 AM Note Text: Patient presents with: Sore Throat HPI: Patient presents today for office visit for follow up. Nursing Notes: Angie Seay LPN 02/11/2018 10:59 AM Signed ENT:Patient complains of sore throat. Duration:3 days. Cough: No. Congestion: No. Ear pain: Hurt last Sunday but fine now. Swallowing difficulties: No. Exposure to anyone with strep:No. Fever: No. Headache: slight headache No fever or chills. No other real symptoms other than the throat. No drooling. No nausea or vomiting or diarrhea. MEDICATIONS: Current Outpatient Prescriptions: LORazepam (ATIVAN) 0.5 mg tab Take 1 tablet by mouth twice daily for 60 days. busPIRone (BUSPAR) 5 mg tablet Take 1 tablet by mouth every 8 hours as needed. clotrimazole-betamethasone (LOTRISONE) cream Apply 1 application to affected area twice daily. UNTIL CLEAR FOR UP TO 2-3 WEEKS No current facility-administered medications for this visit. ALLERGIES: ALLERGIES Allergen Reactions - Amoxacillin [Amoxic* Hives - Paxil [Paroxetine H* GI Upset Nausea, vomiting. - Percocet [Oxycodone* Vomiting - Zoloft [Sertraline * Intolerance Nausea, trouble eating PAST MEDICAL HISTORY Diagnosis Date - Abnormal maternal glucose tolerance, antepartum 1995 - Insomnia, unspecified - Myopia - Tension headache PAST SURGICAL HISTORY Procedure Laterality Date - LASIK 04/02/2014 FS OD DVA by Dr Chaves/Dr Fagan attending - LIGATE FALLOPIAN TUBE 2004 Tubal ligation - PAST SURGICAL HISTORY OF age 20 +/- wisdom teeth - PRK 04/02/2014 with [facility] OS DVA by Dr Chaves/Dr Fagan attending FAMILY HISTORY Problem Relation Age of Onset - Diabetes Mother - None Father from ? polimyelitis? (see 04/25/2011) - Cancer Maternal Grandfather unknown primary Social History Marital status: Spouse name: sebas Years of education: Number of children: 2 Occupational History Occupation Employer Comment [employer]* Social History Main Topics Smoking status: Never Smoker Smokeless status: Never Used Alcohol use: Yes Comment: occasion Drug use: No Sexual activity: Yes Partners with: Male control/protection: Tubal Ligation Comment: Monogamous with of 8 years. Reviewed current medications, allergies, past medical history, surgical history, family history and social history today. REVIEW OF SYSTEMS All other reviewed and negative other than HPI. VITALS: BP 134/82 Pulse 60 Temp 36.8 ?C (98.2 ?F) (Tympanic) Resp 12 Last 4 Encounter Wt Readings: Date: Wt: 12/05/2017 82.1 kg (181 lb) 10/16/2017 0 kg (0 lb) 07/20/2017 75.8 kg (167 lb) 05/29/2017 76.7 kg (169 lb) PHYSICAL EXAMINATION: General appearance: Well appearing, alert, in no acute distress, well-hydrated, well nourished. Skin: Skin color, texture, turgor normal, no suspicious rashes or lesions Head: Normocephalic, no masses, lesions, tenderness or abnormalities Eyes: Anicteric sclera. Pupils are equally round and reactive to light. Extraocular movements are intact. Ears: External ears normal, canals clear Nose/Sinuses: Nares normal, septum midline, mucosa normal, no drainage or sinus tenderness Oropharynx: Lips, mucosa, and tongue normal, teeth and gums normal, oropharynx normal Neck:supple no lymphadenopathy Lungs: Lungs clear to auscultation. No wheezing, rhonchi, rales Heart: RRR without murmur, gallop, or rubs. No ectopy Abdomen: Normal abdominal exam, Abdomen soft, non-tender. Bowel sounds normal. No masses, organomegaly Extremities: No deformities, edema, skin discoloration, clubbing or cyanosis. Good capillary refill. ASSESSMENT/PLAN: 1. Sore throat - ICD9: 462, ICD10: J02.9 - suspect viral - Discussed supportive care treatment with fluids, rest and analgesia. - The patient should follow up in one week if symptoms persist or worsen - Call back if drooling, increased temperature, symptoms of dehydration and/or still sick in one week - RAPID STREP TEST B/O Loco Ren MD CNOV Observed: 02/11/2018 Status: COMPLETED Source: [place] 10:00 AM [facility] REPOSITORY [facility] MANUEL HAN[facility] ([id number]) 1980 F Date Time Provider Department 02/11/18 10:00 AM LOCO REN During your visit today, we recorded the following information about you: Temperature Pulse Respiration Blood pressure 98.2 degrees 60/minute 12/minute 134/82 Angie Seay LPN 02/11/2018 10:59 AM Signed ENT:Patient complains of sore throat. Duration:3 days. Cough: No. Congestion: No. Ear pain: Hurt last Sunday but fine now. Swallowing difficulties: No. Exposure to anyone with strep:No. Fever: No. Headache: slight headache Loco Ren MD 02/11/2018 11:20 AM Signed Patient presents with: Sore Throat HPI: Patient presents today for office visit for follow up. Nursing Notes: Angie Seay YAYA 02/11/2018 10:59 AM Signed ENT:Patient complains of sore throat. Duration:3 days. Cough: No. Congestion: No. Ear pain: Hurt last Sunday but fine now. Swallowing difficulties: No. Exposure to anyone with strep:No. Fever: No. Headache: slight headache No fever or chills. No other real symptoms other than the throat. No drooling. No nausea or vomiting or diarrhea. MEDICATIONS: Current Outpatient Prescriptions: LORazepam (ATIVAN) 0.5 mg tab Take 1 tablet by mouth twice daily for 60 days. busPIRone (BUSPAR) 5 mg tablet Take 1 tablet by mouth every 8 hours as needed. clotrimazole-betamethasone (LOTRISONE) cream Apply 1 application to affected area twice daily. UNTIL CLEAR FOR UP TO 2-3 WEEKS No current facility-administered medications for this visit. ALLERGIES: ALLERGIES Allergen Reactions - Amoxacillin [Amoxic* Hives - Paxil [Paroxetine H* GI Upset Nausea, vomiting. - Percocet [Oxycodone* Vomiting - Zoloft [Sertraline * Intolerance Nausea, trouble eating PAST MEDICAL HISTORY Diagnosis Date - Abnormal maternal glucose tolerance, antepartum 1995 - Insomnia, unspecified - Myopia - Tension headache PAST SURGICAL HISTORY Procedure Laterality Date - LASIK 04/02/2014 FS OD DVA by Dr Chaves/Dr Fagan attending - LIGATE FALLOPIAN TUBE 2005 Tubal ligation - PAST SURGICAL HISTORY OF age 20 +/- wisdom teeth - PRK 04/02/2014 with [facility] OS DVA by Dr Chaves/Dr Fagan attending FAMILY HISTORY Problem Relation Age of Onset - Diabetes Mother - None Father from ? polimyelitis? (see 04/25/2011) - Cancer Maternal Grandfather unknown primary Social History Marital status: Spouse name: sebas Years of education: Number of children: 2 Occupational History Occupation Employer Comment [employer]* Social History Main Topics Smoking status: Never Smoker Smokeless status: Never Used Alcohol use: Yes Comment: occasion Drug use: No Sexual activity: Yes Partners with: Male control/protection: Tubal Ligation Comment: Monogamous with of 8 years. Reviewed current medications, allergies, past medical history, surgical history, family history and social history today. REVIEW OF SYSTEMS All other reviewed and negative other than HPI. VITALS: BP 134/82 Pulse 60 Temp 36.8 ?C (98.2 ?F) (Tympanic) Resp 12 Last 4 Encounter Wt Readings: Date: Wt: 12/05/2017 82.1 kg (181 lb) 10/16/2017 0 kg (0 lb) 07/20/2017 75.8 kg (167 lb) 05/29/2017 76.7 kg (169 lb) PHYSICAL EXAMINATION: General appearance: Well appearing, alert, in no acute distress, well-hydrated, well nourished. Skin: Skin color, texture, turgor normal, no suspicious rashes or lesions Head: Normocephalic, no masses, lesions, tenderness or abnormalities Eyes: Anicteric sclera. Pupils are equally round and reactive to light. Extraocular movements are intact. Ears: External ears normal, canals clear Nose/Sinuses: Nares normal, septum midline, mucosa normal, no drainage or sinus tenderness Oropharynx: Lips, mucosa, and tongue normal, teeth and gums normal, oropharynx normal Neck:supple no lymphadenopathy Lungs: Lungs clear to auscultation. No wheezing, rhonchi, rales Heart: RRR without murmur, gallop, or rubs. No ectopy Abdomen: Normal abdominal exam, Abdomen soft, non-tender. Bowel sounds normal. No masses, organomegaly Extremities: No deformities, edema, skin discoloration, clubbing or cyanosis. Good capillary refill. ASSESSMENT/PLAN: 1. Sore throat - ICD9: 462, ICD10: J02.9 - suspect viral - Discussed supportive care treatment with fluids, rest and analgesia. - The patient should follow up in one week if symptoms persist or worsen - Call back if drooling, increased temperature, symptoms of dehydration and/or still sick in one week - RAPID STREP TEST B/O Loco Ren MD Referring Provider: SELF [200] Allergies As of Date: 02/11/2018 Noted Allergy Reaction AMOXACILLIN (AMOXICILLIN) 08/31/2008 4 - Hives PAXIL (PAROXETINE HCL) 10/15/2017 8 - GI Upset Comments: Nausea, vomiting. PERCOCET (OXYCODONE-ACETAMINOPHEN)04/08/2014 11 - Vomiting ZOLOFT (SERTRALINE HCL) 10/15/2017 5 - Intolerance Comments: Nausea, trouble eating Date Reviewed: 02/11/2018 Reviewed by: Angie Seay LPN - Fully Assessed Reason for Visit: Sore Throat [200] Primary Visit Diagnosis:Sore throat [J02.9] Order(s):RAPID STREP TEST B/O [[id number]] Order #: [id number] GROUP A STREPTOCOCCUS BY PCR [SQGASPCR] Order #: [id number] Prescriptions as of 02/11/2018 Sig: LORAZEPAM 0.5 MG TABLET Take 1 tablet by mouth twice * BUSPIRONE 5 MG TABLET Take 1 tablet by mouth every * CLOTRIMAZOLE-BETAMETHASONE 1 * Apply 1 application to affect* Problem List As Of Date 02/11/2018 Noted Resolved Impaired fasting glucose [R73.01] INVALID FOR* Priority: A ABN GLUCOSE-ANTEPARTUM [O99.810] TENSION HEADACHE [G44.209] INVALID FOR* Insomnia, unspecified [G47.00] INVALID FOR* Priority: B Routine general medical examination at a health*INVALID FOR*09/25/2013 Priority: A Class: Chronic More... Routine gynecological examination [Z01.419] INVALID FOR*09/25/2013 Priority: B Class: Chronic More... Migraine, unspecified, without mention of intra*INVALID FOR* Priority: A Anxiety [F41.9] INVALID FOR* Priority: A Elevated blood pressure (not hypertension) [R03*INVALID FOR* Priority: A Left upper extremity numbness [R20.0] INVALID FOR* Counseling and coordination of care [Z71.89] INVALID FOR*07/09/2015 More... Cervicothoracic somatic dysfunction [M99.01] INVALID FOR* Neck pain [M54.2] INVALID FOR* Muscle tension headache [G44.209] INVALID FOR* Visit Notes: >> Angie Seay LPN SunFeb 11, 2018 10:54 AM Status: Signed ENT:Patient complains of sore throat. Duration:3 days. Cough: No. Congestion: No. Ear pain: Hurt last Sunday but fine now. Swallowing difficulties: No. Exposure to anyone with strep:No. Fever: No. Headache: slight headache Encounter Status:Closed by LOCO REN MD on 02/11/18 PROGRESS Observed: 01/24/2018 Status: COMPLETED Source: [place] 3:35 PM [facility] REPOSIT[facility] O ID: [id number] Author: Venessa Abel (Pa-C) Antonino Service: (none) Author Type: Physician Blindstitch Hemmer Type: Progress Notes Filed: 01/24/2018 9:09 PM Note Text: 37 year old female with c/o anxiety today is out of control. Took 2 Buspar 5mg tabs without much benefit. Marital issues. discussed at length. Affecting work performance. HISTORIES FAMILY HISTORY Problem Relation Age of Onset - Diabetes Mother - None Father from ? polimyelitis? (see 04/25/2011) - Cancer Maternal Grandfather unknown primary PAST MEDICAL HISTORY Diagnosis Date - Abnormal maternal glucose tolerance, antepartum 1995 - Insomnia, unspecified - Myopia - Tension headache PAST SURGICAL HISTORY Procedure Laterality Date - LASIK 04/02/2014 FS OD DVA by Dr Chaves/Dr Fagan attending - LIGATE FALLOPIAN TUBE 2005 Tubal ligation - PAST SURGICAL HISTORY OF age 20 +/- wisdom teeth - PRK 04/02/2014 with [facility] OS DVA by Dr Chaves/Dr Fagan attending Social History Marital status: Spouse name: sebas Years of education: Number of children: 2 Occupational History Occupation Employer Comment [employer]* Social History Main Topics Smoking status: Never Smoker Smokeless status: Never Used Alcohol use: Yes Comment: occasion Drug use: No Sexual activity: Yes Partners with: Male control/protection: Tubal Ligation Comment: Monogamous with of 8 years. ACTIVE PROBLEM LIST Impaired Fasting Glucose Abnormal Maternal Glucose Tolerance, Antepartum Tension Headache Insomnia, Unspecified Migraine, Unspecified, Without Mention of Intractable Migraine Without Mention of Status Migrainosus Anxiety Elevated Blood Pressure (Not Hypertension) Left Upper Extremity Numbness Cervicothoracic Somatic Dysfunction Neck Pain Muscle Tension Headache Current Outpatient Prescriptions: busPIRone (BUSPAR) 5 mg tablet Take 1 tablet by mouth every 8 hours as needed. Disp: 30 tablet Rfl: 2 clotrimazole-betamethasone (LOTRISONE) cream Apply 1 application to affected area twice daily. UNTIL CLEAR FOR UP TO 2-3 WEEKS Disp: 15 g Rfl: 1 No current facility-administered medications for this visit. PAP EVERY 5 YEARS due on 07/02/2017 HPV EVERY 5 YEARS due on 07/02/2017 EXAM: BP 128/84 Pulse 76 Resp 16 Pleasant Adult woman in no acute distress. Alert and oriented all spheres. Normal affect and cognition. Speech normal. No deficits to learning or comprehension. Tearful, anxious at intervals. Judgment intact. Skin warm, dry, pink to lips and nailbeds. Normal turgor. Respirations regular and unlabored. HEENT WNL. TM's clear. Nose and oropharynx free from injection or lesion. No cervical lymph nodes. Thyroid non-tender, no masses Extrem: no clubbing, cyanosis, edema. Extremities are warm and pink with prompt capillary refill. ASSESSMENT/PLAN: 1. Adjustment disorder with anxiety - ICD9: 309.24, ICD10: F43.22 40 minute visit spent entirely in counseling. Sparing use of lorazepam. We cautioned on side effects. Follow-up in 4 weeks. Strongly urged marital counseling and offered to discuss together with her . - LORAZEPAM 0.5 MG TABLET Venessa Muñiz PA-C CNOV Observed: 01/24/2018 Status: COMPLETED Source: [place] 3:20 PM [facility] REPOSITORY Office Visit (FAMPWS) MANUEL HANLEY ([id number]) 1980 F Date Time Provider Department 01/24/18 3:20 PM Venessa MUÑIZ) FAMPWS During your visit today, we recorded the following information about you: Pulse Respiration Blood pressure 76/minute 16/minute 128/84 Lorie Nathanfernando Montejo 01/24/2018 3:23 PM Signed ANXIETY: Patient has increased anxiety today. So far she has taken 2 Buspar today with no relief. Venessa Muñiz PA-C 01/24/2018 9:09 PM Signed 37 year old female with c/o anxiety today is out of control. Took 2 Buspar 5mg tabs without much benefit. Marital issues. discussed at length. Affecting work performance. HISTORIES FAMILY HISTORY Problem Relation Age of Onset - Diabetes Mother - None Father from ? polimyelitis? (see 04/25/2011) - Cancer Maternal Grandfather unknown primary PAST MEDICAL HISTORY Diagnosis Date - Abnormal maternal glucose tolerance, antepartum 1995 - Insomnia, unspecified - Myopia - Tension headache PAST SURGICAL HISTORY Procedure Laterality Date - LASIK 04/02/2014 FS OD DVA by Dr Chaves/Dr Fagan attending - LIGATE FALLOPIAN TUBE 2004 Tubal ligation - PAST SURGICAL HISTORY OF age 20 +/- wisdom teeth - PRK 04/02/2014 with [facility] OS DVA by Dr Chaves/Dr Fagan attending Social History Marital status: Spouse name: sebas Years of education: Number of children: 2 Occupational History Occupation Employer Comment [employer]* Social History Main Topics Smoking status: Never Smoker Smokeless status: Never Used Alcohol use: Yes Comment: occasion Drug use: No Sexual activity: Yes Partners with: Male control/protection: Tubal Ligation Comment: Monogamous with of 8 years. ACTIVE PROBLEM LIST Impaired Fasting Glucose Abnormal Maternal Glucose Tolerance, Antepartum Tension Headache Insomnia, Unspecified Migraine, Unspecified, Without Mention of Intractable Migraine Without Mention of Status Migrainosus Anxiety Elevated Blood Pressure (Not Hypertension) Left Upper Extremity Numbness Cervicothoracic Somatic Dysfunction Neck Pain Muscle Tension Headache Current Outpatient Prescriptions: busPIRone (BUSPAR) 5 mg tablet Take 1 tablet by mouth every 8 hours as needed. Disp: 30 tablet Rfl: 2 clotrimazole-betamethasone (LOTRISONE) cream Apply 1 application to affected area twice daily. UNTIL CLEAR FOR UP TO 2-3 WEEKS Disp: 15 g Rfl: 1 No current facility-administered medications for this visit. PAP EVERY 5 YEARS due on 07/02/2017 HPV EVERY 5 YEARS due on 07/02/2017 EXAM: BP 128/84 Pulse 76 Resp 16 Pleasant Adult woman in no acute distress. Alert and oriented all spheres. Normal affect and cognition. Speech normal. No deficits to learning or comprehension. Tearful, anxious at intervals. Judgment intact. Skin warm, dry, pink to lips and nailbeds. Normal turgor. Respirations regular and unlabored. HEENT WNL. TM's clear. Nose and oropharynx free from injection or lesion. No cervical lymph nodes. Thyroid non-tender, no masses Extrem: no clubbing, cyanosis, edema. Extremities are warm and pink with prompt capillary refill. ASSESSMENT/PLAN: 1. Adjustment disorder with anxiety - ICD9: 309.24, ICD10: F43.22 40 minute visit spent entirely in counseling. Sparing use of lorazepam. We cautioned on side effects. Follow-up in 4 weeks. Strongly urged marital counseling and offered to discuss together with her . - LORAZEPAM 0.5 MG TABLET M Colten Muñiz PA-C Referring Provider: SELF [200] Allergies As of Date: 01/24/2018 Noted Allergy Reaction AMOXACILLIN (AMOXICILLIN) 08/31/2008 4 - Hives PAXIL (PAROXETINE HCL) 10/15/2017 8 - GI Upset Comments: Nausea, vomiting. PERCOCET (OXYCODONE-ACETAMINOPHEN)04/08/2014 11 - Vomiting ZOLOFT (SERTRALINE HCL) 10/15/2017 5 - Intolerance Comments: Nausea, trouble eating Date Reviewed: 01/24/2018 Reviewed by: Lorie Gan Ma - Fully Assessed Reason for Visit: Anxiety [9] Primary Visit Diagnosis:Adjustment disorder with anxiety [F43.22] Order(s):LORazepam (ATIVAN) 0.5 mg tabTake 1 tablet by mouth twice daily for 60 days.Disp: 30 tabletRfl: 1 Prescriptions as of 01/24/2018 Sig: BUSPIRONE 5 MG TABLET Take 1 tablet by mouth every * CLOTRIMAZOLE-BETAMETHASONE 1 * Apply 1 application to affect* LORAZEPAM 0.5 MG TABLET Take 1 tablet by mouth twice * Problem List As Of Date 01/24/2018 Noted Resolved Impaired fasting glucose [R73.01] INVALID FOR* Priority: A ABN GLUCOSE-ANTEPARTUM [O99.810] TENSION HEADACHE [G44.209] INVALID FOR* Insomnia, unspecified [G47.00] INVALID FOR* Priority: B Routine general medical examination at a health*INVALID FOR*09/25/2013 Priority: A Class: Chronic More... Routine gynecological examination [Z01.419] INVALID FOR*09/25/2013 Priority: B Class: Chronic More... Migraine, unspecified, without mention of intra*INVALID FOR* Priority: A Anxiety [F41.9] INVALID FOR* Priority: A Elevated blood pressure (not hypertension) [R03*INVALID FOR* Priority: A Left upper extremity numbness [R20.0] INVALID FOR* Counseling and coordination of care [Z71.89] INVALID FOR*07/09/2015 More... Cervicothoracic somatic dysfunction [M99.01] INVALID FOR* Neck pain [M54.2] INVALID FOR* Muscle tension headache [G44.209] INVALID FOR* Visit Notes: >> Lorie Gan Ma Joan Jan 24, 2018 3:20 PM Status: Signed ANXIETY: Patient has increased anxiety today. So far she has taken 2 Buspar today with no relief. Prescriptions ordered this encounter Disp Refills Start End LORAZEPAM 0.5 MG TABLET 30 t* 1 01/24/2018 03/25/2018 Class: Print RX Route: ORAL Sig: Take 1 tablet by mouth twice daily for 60 days. Encounter Status:Closed by Venessa MUÑIZ PA-C on 01/24/18 PROGRESS Observed: 01/09/2018 Status: COMPLETED Source: [place] 1:34 PM [facility] RE[facility] O ID: [id number] Author: Vincent (Pt) Yanely Service: (none) Author Type: Physical Therapist Type: Progress Notes Filed: 01/09/2018 3:55 PM Note Text: Episode Visit Count: 2 Therapist That Will Oversee The Plan Of Care: Vincent Ny PT Start of Care Date: 12/26/17 Onset Date: 10/25/17 (chronic for years but recently worse 2 months ago) Patient Identified by Name and Date of : Yes REHABILITATION AND SPORTS THERAPY PHYSICAL THERAPY TREATMENT NOTE ASSESSMENT: Manuel Hanley demonstrated 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 The patient will continue to benefit from continued skilled physical therapy for postural stretching and strengthening therex, ergonomics consultation, manual therapy and postural correction. PLAN FOR NEXT VISIT: review HEP, progress HEP to tolerance prn, continue postural stretching and strengthening therex, continue manual therapy, consult on work station ergonomics prn. SUBJECTIVE: Pt reports that overall she is better. She reports that she has not been compliant with HEP as instructed. She reports that she completes HEP 2-3x week. She reports that she has not had any migraines since evaluation. She reports that pain still occurs but when it does, HEP is effective at eliminating symptoms. She reports that intensity of pain is less, especially after HEP compliance. She reports increased postural awareness and that she is working on this at work, at home and in the car but not as compliant in the car. She feels that manual therapy last session was helpful. Pain Score: 0/10 Pain Location: Head - Left;Neck - Left Frequency: Intermittent Post Treatment Pain Score: No Change Post Treatment Pain Description: (still no pain) OBJECTIVE MEASURES WITH LEVEL OF FUNCTION: Posture / Alignment Posture: (a work in progress) Spine Observations Spine Presents with: Muscle Tone Spine Palpation L Cervical Spine Palpation Tenderness: Levator Scapulae;Upper trapezius (tension, tone and trigger points are all decreased) TREATMENT: Therapeutic Exercise: 1: UBE UEs only, seat #5 height #2 resistantce level 0 x5 minutes 2: seated UE rope and darline 2x10 each for shoulder flexion and abduction 3: *seated L UT stretch 3x30 seconds with emphasis on proper form and intensity 4: *seated L levator scapulae stretch 3x30 seconds with emphasis on proper form and intensity 5: *seated scapular retraction in front of mirror to avoid scapular elevation 2x10 6: *seated cervical retraction in front of mirror 2x10 in pain-free range 7: proper intensity with all therex reviewed and emphasized. Postural correction reviewed and emphasized. The benefit of more consistent HEP completion was instructed and emphasized. Skilled Intervention: Patient was educated in proper exercise technique and purpose for exercises. Reviewed and educated patient on additions/changes for home exercise program as above (*) Skilled judgment was provided in selection of appropriate interventions. Provided written instruction for home exercise program to facilitate proper performance and compliance. Correct performance of therapeutic exercises was facilitated with verbal, visual and tactile cuing. Manual Therapy: Trigger Point Release: With pt supine, manual therapy performed to musculature of neck and shoulder x10 minutes total and all force to patient tolerance. Techniques used were trigger point release to L levator scapulae, muscle bending to UT, sub occipital release and passive stretching of L UT and L levator scapulae to pt tolerance. Passive side glides also performed with pt supine and relaxed. Skilled Intervention: Manual skills to improve joint mobility, ROM, and decrease pain. Utilized anatomy knowledge of the therapist, and assessment of patient's response to intervention. Billing: [facility]: Therapeutic Exercise (06864): 1:1 time: 33 minutes (2 units: 23-37 mins) Manual Therapy (01110): 1:1 time: 12 minutes (1 unit: 8-22 mins) Total time: 45 minutes Vincent Ny PT CNTHERAPY Observed: 01/09/2018 Status: COMPLETED Source: [place] 1:15 PM [facility] [place] REPOSITORY OT/PT/Speech Visit (PTWS) MANUEL HANLEY ([id number]) 1980 F Date Time Provider Department 01/09/18 1:15 PM VINCENT [place] (PT) PTWS Date Time Provider Department Center 01/09/2018 1:15 PM [id number], BRENT (PT) PTWS [facility] Reason for Visit: Physical Therapy [503] Primary Visit Diagnosis:Neck pain [M54.2] Other Visit Diagnosis:Muscle tension headache [G44.209] Allergies As of Date: 01/09/2018 Noted Allergy Reaction AMOXACILLIN (AMOXICILLIN) 08/31/2008 4 - Hives PAXIL (PAROXETINE HCL) 10/15/2017 8 - GI Upset Comments: Nausea, vomiting. PERCOCET (OXYCODONE-ACETAMINOPHEN)04/08/2014 11 - Vomiting ZOLOFT (SERTRALINE HCL) 10/15/2017 5 - Intolerance Comments: Nausea, trouble eating Date Reviewed: 12/11/2017 Reviewed by: Bertha Buck LPN - Fully Assessed Prescriptions as of 01/09/2018 Sig: CLOTRIMAZOLE-BETAMETHASONE 1 * Apply 1 application to affect* Progress Notes: Vincent Ny PT 01/09/2018 3:55 PM Signed Episode Visit Count: 2 Therapist That Will Oversee The Plan Of Care: Vincent Ny PT Start of Care Date: 12/26/17 Onset Date: 10/25/17 (chronic for years but recently worse 2 months ago) Patient Identified by Name and Date of : Yes REHABILITATION AND SPORTS THERAPY PHYSICAL THERAPY TREATMENT NOTE ASSESSMENT: Manuel Hanley demonstrated 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 The patient will continue to benefit from continued skilled physical therapy for postural stretching and strengthening therex, ergonomics consultation, manual therapy and postural correction. PLAN FOR NEXT VISIT: review HEP, progress HEP to tolerance prn, continue postural stretching and strengthening therex, continue manual therapy, consult on work station ergonomics prn. SUBJECTIVE: Pt reports that overall she is better. She reports that she has not been compliant with HEP as instructed. She reports that she completes HEP 2-3x week. She reports that she has not had any migraines since evaluation. She reports that pain still occurs but when it does, HEP is effective at eliminating symptoms. She reports that intensity of pain is less, especially after HEP compliance. She reports increased postural awareness and that she is working on this at work, at home and in the car but not as compliant in the car. She feels that manual therapy last session was helpful. Pain Score: 0/10 Pain Location: Head - Left;Neck - Left Frequency: Intermittent Post Treatment Pain Score: No Change Post Treatment Pain Description: (still no pain) OBJECTIVE MEASURES WITH LEVEL OF FUNCTION: Posture / Alignment Posture: (a work in progress) Spine Observations Spine Presents with: Muscle Tone Spine Palpation L Cervical Spine Palpation Tenderness: Levator Scapulae;Upper trapezius (tension, tone and trigger points are all decreased) TREATMENT: Therapeutic Exercise: 1: UBE UEs only, seat #5 height #2 resistantce level 0 x5 minutes 2: seated UE rope and darline 2x10 each for shoulder flexion and abduction 3: *seated L UT stretch 3x30 seconds with emphasis on proper form and intensity 4: *seated L levator scapulae stretch 3x30 seconds with emphasis on proper form and intensity 5: *seated scapular retraction in front of mirror to avoid scapular elevation 2x10 6: *seated cervical retraction in front of mirror 2x10 in pain-free range 7: proper intensity with all therex reviewed and emphasized. Postural correction reviewed and emphasized. The benefit of more consistent HEP completion was instructed and emphasized. Skilled Intervention: Patient was educated in proper exercise technique and purpose for exercises. Reviewed and educated patient on additions/changes for home exercise program as above (*) Skilled judgment was provided in selection of appropriate interventions. Provided written instruction for home exercise program to facilitate proper performance and compliance. Correct performance of therapeutic exercises was facilitated with verbal, visual and tactile cuing. Manual Therapy: Trigger Point Release: With pt supine, manual therapy performed to musculature of neck and shoulder x10 minutes total and all force to patient tolerance. Techniques used were trigger point release to L levator scapulae, muscle bending to UT, sub occipital release and passive stretching of L UT and L levator scapulae to pt tolerance. Passive side glides also performed with pt supine and relaxed. Skilled Intervention: Manual skills to improve joint mobility, ROM, and decrease pain. Utilized anatomy knowledge of the therapist, and assessment of patient's response to intervention. Billing: [facility]: Therapeutic Exercise ([id number]): 1:1 time: 33 minutes (2 units: 23-37 mins) Manual Therapy ([id number]): 1:1 time: 12 minutes (1 unit: 8-22 mins) Total time: 45 minutes Vincent Ny PT PROGRESS Observed: 01/08/2018 Status: COMPLETED Source: [place] 8:59 AM [facility] REPOSITORY [facility] ID: [id number] Author: Francisco Villagomez Ma Service: (none) Author Type: (none) Type: Progress Notes Filed: 01/08/2018 9:00 AM Note Text: SHY De La Cruz [facility] Care Coordination Note Call to member to update progress in [facility] program. 2 BMI Weight goal to reach between 06/19/18 -08/04/18 of 156 lbs Reminded member of established weight goal, deadline and of the importance of reporting a final documented weight to me. Has gained some weight/ ready to get going with her weight loss sent link to available programs/ has done e-coaching in the past but lately she feels the program has gone down hill and that the coach operator/head athletic trainer don?t care anymore- I advised she call [facility] and discuss with them. She is doing Jose and walking for exercise Goal for LDL level is 130 or below. Cholesterol, Total (mg/dL) Date Value 11/21/2012 181 HDL Cholesterol (mg/dL) Date Value 11/21/2012 40 LDL Cholesterol (mg/dL) Date Value 11/21/2012 114 LDL Chol, [place] (mg/dL) Date Value 09/03/2008 78 Triglyceride (mg/dL) Date Value 11/21/2012 133 Is member currently being treated for Hyperlipidemia? No If yes, is lipid panel done annually? No Goal for blood pressure is 140/90 or below. Last 3 Encounter BP Readings: Date: BP: 12/26/2017 126/104 12/11/2017 124/88 12/05/2017 136/84 Is member currently being treated for Hypertension No Has there been a Basic Metabolic Panel done within the last year?No Glucose (mg/dL) Date Value 01/16/2014 108 Potassium (mmol/L) Date Value 01/16/2014 4.1 Sodium (mmol/L) Date Value 01/16/2014 140 Chloride (mmol/L) Date Value 01/16/2014 103 CO2 (mmol/L) Date Value 01/16/2014 25 Creatinine (mg/dL) Date Value 01/16/2014 0.83 BUN (mg/dL) Date Value 01/16/2014 13 Anion Gap (mmol/L) Date Value 01/16/2014 12 Calcium (mg/dL) Date Value 01/16/2014 9.0 Medication Refill Adherence- na HEALTH MAINTENANCE PAP EVERY 5 YEARS due on 07/02/2017 HPV EVERY 5 YEARS due on 07/02/2017 Depression Screening- During the last month or since our last conversation, have you often been bothered by feeling down, depressed or hopeless?No During the last month or since our last conversation, have you been bothered by little interest or pleasure in doing things?No (if answer yes, please complete extended depression screening) Asked member to reach out to me with any questions before next call in 12 weeks if needed. Francisco Villagomez Ma January 08, 2018 8:59 AM CNPTOUTREACH Observed: 01/08/2018 Status: COMPLETED Source: [place] 12:00 AM [facility] REPOSITORY Patient Outreach (MNGDCR) MANUEL HANLEY ([id number]) 1980 F Date Time Provider Department 01/08/18 FRANCISCO VILLAGOMEZ (WINDY) ZOE During your visit today, we recorded the following information about you: Francisco Villagomez Ma 01/08/2018 9:00 AM Signed SHY De La Cruz [facility] Care Coordination Note Call to member to update progress in [facility] program. 2 BMI Weight goal to reach between 06/19/18 -08/04/18 of 156 lbs Reminded member of established weight goal, deadline and of the importance of reporting a final documented weight to me. Has gained some weight/ ready to get going with her weight loss sent link to available programs/ has done e-coaching in the past but lately she feels the program has gone down hill and that the coach operator/head athletic trainer don?t care anymore- I advised she call [facility] and discuss with them. She is doing Jose and walking for exercise Goal for LDL level is 130 or below. Cholesterol, Total (mg/dL) Date Value 11/21/2012 181 HDL Cholesterol (mg/dL) Date Value 11/21/2012 40 LDL Cholesterol (mg/dL) Date Value 11/21/2012 114 LDL Chol, [place] (mg/dL) Date Value 09/03/2008 78 Triglyceride (mg/dL) Date Value 11/21/2012 133 Is member currently being treated for Hyperlipidemia? No If yes, is lipid panel done annually? No Goal for blood pressure is 140/90 or below. Last 3 Encounter BP Readings: Date: BP: 12/26/2017 126/104 12/11/2017 124/88 12/05/2017 136/84 Is member currently being treated for Hypertension No Has there been a Basic Metabolic Panel done within the last year?No Glucose (mg/dL) Date Value 01/16/2014 108 Potassium (mmol/L) Date Value 01/16/2014 4.1 Sodium (mmol/L) Date Value 01/16/2014 140 Chloride (mmol/L) Date Value 01/16/2014 103 CO2 (mmol/L) Date Value 01/16/2014 25 Creatinine (mg/dL) Date Value 01/16/2014 0.83 BUN (mg/dL) Date Value 01/16/2014 13 Anion Gap (mmol/L) Date Value 01/16/2014 12 Calcium (mg/dL) Date Value 01/16/2014 9.0 Medication Refill Adherence- na HEALTH MAINTENANCE PAP EVERY 5 YEARS due on 07/02/2017 HPV EVERY 5 YEARS due on 07/02/2017 Depression Screening- During the last month or since our last conversation, have you often been bothered by feeling down, depressed or hopeless?No During the last month or since our last conversation, have you been bothered by little interest or pleasure in doing things?No (if answer yes, please complete extended depression screening) Asked member to reach out to me with any questions before next call in 12 weeks if needed. Francisco Villagomez Ma January 08, 2018 8:59 AM Allergies As of Date: 01/08/2018 Noted Allergy Reaction AMOXACILLIN (AMOXICILLIN) 08/31/2008 4 - Hives PAXIL (PAROXETINE HCL) 10/15/2017 8 - GI Upset Comments: Nausea, vomiting. 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 Routine gynecological examination [Z01.419] INVALID FOR*09/25/2013 Priority: B Class: Chronic More... Migraine, unspecified, without mention of intra*INVALID FOR* Priority: A Anxiety [F41.9] INVALID FOR* Priority: A Elevated blood pressure (not hypertension) [R03*INVALID FOR* Priority: A Left upper extremity numbness [R20.0] INVALID FOR* Counseling and coordination of care [Z71.89] INVALID FOR*07/09/2015 More... Cervicothoracic somatic dysfunction [M99.01] INVALID FOR* Neck pain [M54.2] INVALID FOR* Muscle tension headache [G44.209] INVALID FOR* Encounter Status:Closed by FRANCISCO VILLAGOMEZ MA on 01/08/18 PROGRESS Observed: 12/26/2017 Status: COMPLETED Source: [place] 4:28 PM [facility] RE[facility]IT[facility] HNO ID: [id number] Author: Vincent Ny Service: (none) Author Type: Physical Therapist Type: Progress Notes Filed: 12/26/2017 4:40 PM Note Text: Episode Visit Count: 1 Therapist That Will Oversee The Plan Of Care: Vincent Ny PT Start of Care Date: 12/26/17 Onset Date: 10/25/17 (chronic for years but recently worse 2 months ago) Patient Identified by Name and Date of : Yes REHABILITATION AND SPORTS THERAPY PHYSICAL THERAPY EVALUATION PLAN OF CARE: Assessment: Manuel Hanlye presents with the chief complaint of L sided neck and shoulder pain that likely has a postural muscle origin. When muscle tension increases, pt reports development of a headache that can intermittently be severe. A postural component is almost certain. She presents with impairments of pain, limited AROM, postural deficits, postural weakness and knowledge deficit on work station set up all resulting in functional limitations. She may benefit from skilled therapy services to improve posture, pain, work station ergonomics, ROM, postural strength and facilitate a return to prior functional level. Prognosis: Excellent Excellent due to: current objective clinical presentation;good overall health status;within-session changes at evaluation;positive past response to therapy;good support system/ coping skills Goals for Episode of Care: created on 12/26/17 through 02/06/18 Independent in a Home Exercise Program. Patient will decrease pain to 0/10 at rest and with functional activities to allow patient to improve sitting tolerance for work and sleep without neck pain interrupting sleep. Restore pain free cervical ROM to WFL to allow for improved tolerance for exercise. Sleep throughout the night without pain/symptoms. Sit without limitations, without pain/symptoms to allow for increased sitting tolerance Maintain proper sitting posture throughout the session to allow for increased sitting tolerance. Patient will increase strength of postural muscles to WFL to allow for improved ability to maintain proper posture, restore normal mechanics and decrease pain with increased sitting tolerance. Patient will be able to tolerate sleeping without interruption for full night , sitting for computer use at work and sports activities for exercise at prior level without increased symptoms. Patient will improve his/her score on the Neck Disability Index by 7 points (14%) to indicate a Minimal Clinical Important Difference. Planned Interventions, Frequency, and Duration: Current Frequency: 2x/week Duration: 6 weeks Total Number of Visits Planned: 12 Patient to be see for Planned Treatment Interventions: Therapeutic exercise;Neuromuscular re-education;Manual therapy;Therapeutic activities;Patient/Family/Caregiver Education;Modalities;Body Mechanics Training Modalities: Ultrasound PLAN FOR NEXT VISIT: review HEP, progress HEP to tolerance, begin supervised stretching and strengthening therex, continue manual therapy, discuss and examine work station prn, review postural correction and body mechanics. Patient demonstrates good understanding of plan of care and treatment. The above goals and plan of care were discussed and agreed upon by patient/family. SUBJECTIVE: Manuel Hanley is a 37 year old female seen today for intermittent L sided neck and shoulder pain that is related to muscle tension and eventually leads to headaches that are severe. She reports that headaches can be severe enough to cause crying and vomitting. She gets short term relief from manual therapy adn chiripractic adjustments. She reports that chiropractic adjustments now cause pain and do not relieve pain. She reports that current frequency of severe headaches occur 1x every 2 weeks. Functional Limitations: Functional Limitation Comments Prior Level of Function: Independent without limitations Patient Goals: decrease or eliminate headaches. 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 Infection Clinical Reasoning: No identified risk factors. Red Flags - Cervical Cancer Clinical Reasoning: No identified risk factors. Infection Clinical Reasoning: No identified risk factors. Pain Score: 4/10 (4/10 currently, 7-8/10 at worst) Pain Location: Head - Left;Neck - Left;Shoulder - Left Description: Throbbing;Aching Frequency: Intermittent Post Treatment Pain Score: 1/10 (0-1/10 and barely pain.) Pain Location: Head - Left;Neck - Left;Shoulder - Left Post Treatment Pain Description: (pain decreased from 4/10 at start to 0-1/10 after manual rx) OBJECTIVE MEASURES WITH LEVEL OF FUNCTION: Posture / Alignment Posture: Forward head;Rounded shoulders;Thoracic kyphosis Reflexes - Upper Extremity R Brachioradialis?: Normal R Biceps: Normal L Brachioradialis?: Normal L Biceps: Normal Spine Observations Spine Presents with: Muscle Tone Muscle Tone: Muscle Tone Comments Spine Muscle Tone Additional Comments: increased tension, tone and tenderness at L UT and especially L levator scapulae. 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: Yes, see treatment interventions for education provided Education Provided To: Patient Education Mode/Type: Demonstration;Explanation/Discussion;Literature/Printed Materials;Performance Response to Education/Teach Back: States/Identifies;Return Demonstration;Requires Review/Additional Education TREATMENT: Evaluation Therapeutic Exercise: 1: *seated L UT stretch 3x30 seconds with emphasis on proper form and intensity 2: *seated L levator scapulae stretch 3x30 seconds with emphasis on proper form and intensity 3: Pt was educated on the anatomy of symptomatic area using pictures, rationale for plan and realistic expectations. Pt was educated on postural correction, work station ergonomics and a handout provided on postural correction and proper body mechanics. Skilled Intervention: Patient was educated in proper exercise technique and purpose for exercises. Reviewed and educated patient on additions/changes for home exercise program as above (*) Skilled judgment was provided in selection of appropriate interventions. Provided written instruction for home exercise program to facilitate proper performance and compliance. Correct performance of therapeutic exercises was facilitated with verbal, visual and tactile cuing. Manual Therapy: Trigger Point Release: With pt supine, manual therapy performed to musculature of neck and shoulder x10 minutes total and all force to patient tolerance. Techniques used were trigger point release to L levator scapulae, muscle bending to UT, sub occipital release and passive stretching of L UT and L levator scapulae to pt tolerance. Passive side glides also performed with pt supine and relaxed. Skilled Intervention: Manual skills to improve joint mobility, ROM, and decrease pain. Utilized anatomy knowledge of the therapist, and assessment of patient's response to intervention. Billing: [facility]: Evaluation - Low Complexity (59791) Therapeutic Exercise ([id number]): 1:1 time: 15 minutes (1 unit: 8-22 mins) Manual Therapy (17588): 1:1 time: 10 minutes (1 unit: 8-22 mins) Total time: 45 minutes Vincent Ny PT CNTHERAPY Observed: 12/26/2017 Status: COMPLETED Source: [place] 2:00 PM [facility] REPOSITORY OT/PT/Speech Visit (PTWS) MANUEL HANLEY ([id number]) 1980 F Date Time Provider Department 12/26/17 2:00 PM VINCENT [place] (PT) PTWS Date Time Provider Department Center 12/26/2017 2:00 PM [id number], BRENT (PT) PTWS [facility] Reason for Visit: PT Eval [747] Patient Education [91] Primary Visit Diagnosis:Neck pain [M54.2] Other Visit Diagnosis:Muscle tension headache [G44.209] Allergies As of Date: 12/26/2017 Noted Allergy Reaction AMOXACILLIN (AMOXICILLIN) 08/31/2008 4 - Hives PAXIL (PAROXETINE HCL) 10/15/2017 8 - GI Upset Comments: Nausea, vomiting. PERCOCET (OXYCODONE-ACETAMINOPHEN)04/08/2014 11 - Vomiting ZOLOFT (SERTRALINE HCL) 10/15/2017 5 - Intolerance Comments: Nausea, trouble eating Date Reviewed: 12/11/2017 Reviewed by: Bertha Buck LPN - Fully Assessed Prescriptions as of 12/26/2017 Sig: CLOTRIMAZOLE-BETAMETHASONE 1 * Apply 1 application to affect* Progress Notes: Vincent Ny PT 12/26/2017 4:40 PM Signed Episode Visit Count: 1 Therapist That Will Oversee The Plan Of Care: Vincent Ny PT Start of Care Date: 12/26/17 Onset Date: 10/25/17 (chronic for years but recently worse 2 months ago) Patient Identified by Name and Date of : Yes [facility] PHYSICAL THERAPY EVALUATION PLAN OF CARE: Assessment: Manuel Hanley presents with the chief complaint of L sided neck and shoulder pain that likely has a postural muscle origin. When muscle tension increases, pt reports development of a headache that can intermittently be severe. A postural component is almost certain. She presents with impairments of pain, limited AROM, postural deficits, postural weakness and knowledge deficit on work station set up all resulting in functional limitations. She may benefit from skilled therapy services to improve posture, pain, work station ergonomics, ROM, postural strength and facilitate a return to prior functional level. Prognosis: Excellent Excellent due to: current objective clinical presentation;good overall health status;within-session changes at evaluation;positive past response to therapy;good support system/ coping skills Goals for Episode of Care: created on 12/26/17 through 02/06/18 Independent in a Home Exercise Program. Patient will decrease pain to 0/10 at rest and with functional activities to allow patient to improve sitting tolerance for work and sleep without neck pain interrupting sleep. Restore pain free cervical ROM to WFL to allow for improved tolerance for exercise. Sleep throughout the night without pain/symptoms. Sit without limitations, without pain/symptoms to allow for increased sitting tolerance Maintain proper sitting posture throughout the session to allow for increased sitting tolerance. Patient will increase strength of postural muscles to WFL to allow for improved ability to maintain proper posture, restore normal mechanics and decrease pain with increased sitting tolerance. Patient will be able to tolerate sleeping without interruption for full night , sitting for computer use at work and sports activities for exercise at prior level without increased symptoms. Patient will improve his/her score on the Neck Disability Index by 7 points (14%) to indicate a Minimal Clinical Important Difference. Planned Interventions, Frequency, and Duration: Current Frequency: 2x/week Duration: 6 weeks Total Number of Visits Planned: 12 Patient to be see for Planned Treatment Interventions: Therapeutic exercise;Neuromuscular re-education;Manual therapy;Therapeutic activities;Patient/Family/Caregiver Education;Modalities;Body Mechanics Training Modalities: Ultrasound PLAN FOR NEXT VISIT: review HEP, progress HEP to tolerance, begin supervised stretching and strengthening therex, continue manual therapy, discuss and examine work station prn, review postural correction and body mechanics. Patient demonstrates good understanding of plan of care and treatment. The above goals and plan of care were discussed and agreed upon by patient/family. SUBJECTIVE: Manuel Hanley is a 37 year old female seen today for intermittent L sided neck and shoulder pain that is related to muscle tension and eventually leads to headaches that are severe. She reports that headaches can be severe enough to cause crying and vomitting. She gets short term relief from manual therapy adn chiripractic adjustments. She reports that chiropractic adjustments now cause pain and do not relieve pain. She reports that current frequency of severe headaches occur 1x every 2 weeks. Functional Limitations: Functional Limitation Comments Prior Level of Function: Independent without limitations Patient Goals: decrease or eliminate headaches. 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 Infection Clinical Reasoning: No identified risk factors. Red Flags - Cervical Cancer Clinical Reasoning: No identified risk factors. Infection Clinical Reasoning: No identified risk factors. Pain Score: 4/10 (4/10 currently, 7-8/10 at worst) Pain Location: Head - Left;Neck - Left;Shoulder - Left Description: Throbbing;Aching Frequency: Intermittent Post Treatment Pain Score: 1/10 (0-1/10 and barely pain.) Pain Location: Head - Left;Neck - Left;Shoulder - Left Post Treatment Pain Description: (pain decreased from 4/10 at start to 0-1/10 after manual rx) OBJECTIVE MEASURES WITH LEVEL OF FUNCTION: Posture / Alignment Posture: Forward head;Rounded shoulders;Thoracic kyphosis Reflexes - Upper Extremity R Brachioradialis?: Normal R Biceps: Normal L Brachioradialis?: Normal L Biceps: Normal Spine Observations Spine Presents with: Muscle Tone Muscle Tone: Muscle Tone Comments Spine Muscle Tone Additional Comments: increased tension, tone and tenderness at L UT and especially L levator scapulae. 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: Yes, see treatment interventions for education provided Education Provided To: Patient Education Mode/Type: Demonstration;Explanation/Discussion;Literature/Printed Materials;Performance Response to Education/Teach Back: States/Identifies;Return Demonstration;Requires Review/Additional Education TREATMENT: Evaluation Therapeutic Exercise: 1: *seated L UT stretch 3x30 seconds with emphasis on proper form and intensity 2: *seated L levator scapulae stretch 3x30 seconds with emphasis on proper form and intensity 3: Pt was educated on the anatomy of symptomatic area using pictures, rationale for plan and realistic expectations. Pt was educated on postural correction, work station ergonomics and a handout provided on postural correction and proper body mechanics. Skilled Intervention: Patient was educated in proper exercise technique and purpose for exercises. Reviewed and educated patient on additions/changes for home exercise program as above (*) Skilled judgment was provided in selection of appropriate interventions. Provided written instruction for home exercise program to facilitate proper performance and compliance. Correct performance of therapeutic exercises was facilitated with verbal, visual and tactile cuing. Manual Therapy: Trigger Point Release: With pt supine, manual therapy performed to musculature of neck and shoulder x10 minutes total and all force to patient tolerance. Techniques used were trigger point release to L levator scapulae, muscle bending to UT, sub occipital release and passive stretching of L UT and L levator scapulae to pt tolerance. Passive side glides also performed with pt supine and relaxed. Skilled Intervention: Manual skills to improve joint mobility, ROM, and decrease pain. Utilized anatomy knowledge of the therapist, and assessment of patient's response to intervention. Billing: [facility]: Evaluation - Low Complexity (08519) Therapeutic Exercise ([id number]): 1:1 time: 15 minutes (1 unit: 8-22 mins) Manual Therapy ([id number]): 1:1 time: 10 minutes (1 unit: 8-22 mins) Total time: 45 minutes Vincent Ny, PT XR CERVICAL 3V Observed: 12/12/2017 Status: F Source: [place] AP/LAT/ODON 4:23 PM [facility] REPOSITORY * * *Final Report* * * DATE OF EXAM: Dec 12 2017 4:23PM WOX [id number] - XR CERVICAL 3V AP/LAT/ODON / PROCEDURE REASON: Headache * * * * Physician Interpretation * * * * PROCEDURE: Cervical spine INDICATION: Headache . TECHNIQUE: XR CERVICAL 3V AP/LAT/ODON COMPARISON: None FINDINGS: There is normal alignment without fracture or subluxation. Disc spaces are maintained. Prevertebral soft tissues are within normal limits. IMPRESSION: No abnormality Glaze Maker: PSCB Transcribe Date/Time: Dec 12 2017 4:26P Dictated by : NASIR COOPER MD This examination was interpreted and the report reviewed and electronically signed by: NASIR COOPER MD on Dec 12 2017 4:27PM EST [id number] Observed: 12/12/2017 Status: COMPLETED Source: [place] 4:10 PM [facility] REPOSITORY HNO ID: [id number] Author: Katina Echeverria Rt Service: (none) Author Type: (none) Type: Progress Notes Filed: 12/12/2017 4:24 PM Note Text: Radiology Service Progress Note PATIENT NAME: Manuel Hanley DATE OF SERVICE: December 12, 2017 TIME: 4:11 PM PATIENT IDENTITY VERIFICATION COMPLETED USING TWO (2) METHODS: Patient confirmed name verbally and Date of . PATIENT GENDER DATA: Female. status: : No status: NO. PATIENT RELEVANT IMPLANT DATA REVIEWED: Not Applicable RADIOLOGY DEPARTMENT: General X-ray: Exam(s) Completed: Spine X-Ray(s): Cervical AP / LAT / OBL odoniod not obliques PERIPHERAL IV DATA: Not applicable SIGNED BY: Katina Blanchard December 12, 2017 4:11 PM PROGRESS Observed: 12/11/2017 Status: COMPLETED Source: [place] 11:46 AM [facility] [place] REPOSITORY [facility] ID: [id number] Author: Venessa Abel ([place]) Antonino Service: (none) Author Type: Physician Blindstitch Hemmer Type: Progress Notes Filed: 12/11/2017 11:50 AM Note Text: 37 year old female with c/o recurrence severe headache left neck to occipital and forehead. No vision change. Vomiting. Sudden onset this morning. No visual changes other than light sensitive. Big knot in neck. Feels it is coming from there. HISTORIES FAMILY HISTORY Problem Relation Age of Onset - Diabetes Mother - None Father from ? polimyelitis? (see 04/25/2011) - Cancer Maternal Grandfather unknown primary PAST MEDICAL HISTORY Diagnosis Date - Abnormal maternal glucose tolerance, antepartum 1995 - Insomnia, unspecified - Myopia - Tension headache PAST SURGICAL HISTORY Procedure Laterality Date - LASIK 04/02/2014 FS OD DVA by Dr Chaves/Dr Fagan attending - LIGATE FALLOPIAN TUBE 2004 Tubal ligation - PAST SURGICAL HISTORY OF age 20 +/- wisdom teeth - PRK 04/02/2014 with [facility] OS DVA by Dr Chaves/Dr Fagan attending Social History Marital status: Spouse name: sebas Years of education: Number of children: 2 Occupational History Occupation Employer Comment [employer]* Social History Main Topics Smoking status: Never Smoker Smokeless status: Never Used Alcohol use: Yes Comment: occasion Drug use: No Sexual activity: Yes Partners with: Male control/protection: Tubal Ligation Comment: Monogamous with of 8 years. ACTIVE PROBLEM LIST Impaired Fasting Glucose Abnormal Maternal Glucose Tolerance, Antepartum Tension Headache Insomnia, Unspecified Migraine, Unspecified, Without Mention of Intractable Migraine Without Mention of Status Migrainosus Anxiety Elevated Blood Pressure (Not Hypertension) Left Upper Extremity Numbness Cervicothoracic Somatic Dysfunction Current Outpatient Prescriptions: clotrimazole-betamethasone (LOTRISONE) cream Apply 1 application to affected area twice daily. UNTIL CLEAR FOR UP TO 2-3 WEEKS Disp: 15 g Rfl: 1 ketorolac (TORADOL) 60 mg/2 mL soln Inject 2 mL intramuscularly one time only for 1 dose. Disp: 1 mL Rfl: 0 ondansetron, PF, (ZOFRAN) 4 mg/2 mL soln Inject 4 mg intravenously one time only for 1 dose. Disp: 2 mL Rfl: 0 No current facility-administered medications for this visit. PAP EVERY 5 YEARS due on 07/02/2017 HPV EVERY 5 YEARS due on 07/02/2017 EXAM: BP 124/88 Pulse 80 Temp 36.8 ?C (98.2 ?F) (Tympanic) Resp 20 LMP 11/27/2017 (Approximate) Pleasant adult woman in no acute distress. Alert and oriented all spheres. Normal affect and cognition. Speech normal. No deficits to learning or comprehension. Skin warm, dry, pink to lips and nailbeds. Normal turgor. Respirations regular and unlabored. HEENT WNL. PERRLA. EOMI. Corneal light reflex symmetric bilaterally. Gross vision intact. Able to read fine print.TM's clear. Nose and oropharynx free from injection or lesion. No cervical lymph nodes. Thyroid non-tender, no masses Neck supple. Tender trigger points in posterior scalenes, upper traps. restirctions bilateral ROM. Spurling's negative. Extrem: no clubbing, cyanosis, edema. Extremities are warm and pink with prompt capillary refill. Medicated: toradol 60mg IM, Zofran 4mg IM with good relief. OMT: HVLA to bilateral cervical segments and thoracic segments with marked improvement in pain in range of motion. Pain 0/10 between medication and OMT. ASSESSMENT/PLAN: 1. Headache, unspecified headache type - ICD9: 784.0, ICD10: R51 (primary diagnosis) The headaches are primarily coming from neck pain and muscular tightness but have migraine quality. She has not been on migraine medicines in the past. - KETOROLAC 60 MG/2 ML INTRAMUSCULAR SOLUTION - XR CERV INJURY 3V AP/LAT/ODON 2. Cervicalgia - ICD9: 723.1, ICD10: M54.2 We'll proceed with cervical x-ray, consider evaluation with MRI if not improving with treatment 3. Cervicothoracic somatic dysfunction - ICD9: 739.1, ICD10: M99.01 Follow-up as needed. Patient (guardian) expressed understanding of instructions and agrees with plan. Venessa Muñiz PA-C PROGRESS Observed: 12/05/2017 Status: COMPLETED Source: [place] 2:09 PM [facility] REPOSITORY HNO ID: [id number] Author: Venessa Abel ([place]) Antonino Service: (none) Author Type: Physician Blindstitch Hemmer Type: Progress Notes Filed: 12/05/2017 7:12 PM Note Text: 37 year old female with c/o knot in neck over last . restricting movement left range of motion. Dull achy pain in shoulder. 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 No numbness, tingling or radiation. Also has a scaly itchy rash on her right upper arm over the last 4-5 days. Not sure if it's enlarged. No immediate contact with rash. HISTORIES FAMILY HISTORY Problem Relation Age of Onset - Diabetes Mother - None Father from ? polimyelitis? (see 04/25/2011) - Cancer Maternal Grandfather unknown primary PAST MEDICAL HISTORY Diagnosis Date - Abnormal maternal glucose tolerance, antepartum 1995 - Insomnia, unspecified - Myopia - Tension headache PAST SURGICAL HISTORY Procedure Laterality Date - LASIK 04/02/2014 FS OD DVA by Dr Chaves/Dr Fagan attending - LIGATE FALLOPIAN TUBE 2004 Tubal ligation - PAST SURGICAL HISTORY OF age 20 +/- wisdom teeth - PRK 04/02/2014 with [facility] OS DVA by Dr Chaves/Dr Fagan attending Social History Marital status: Spouse name: sebas Years of education: Number of children: 2 Occupational History Occupation Employer Comment [employer] Social History Main Topics Smoking status: Never Smoker Smokeless status: Never Used Alcohol use: Yes Comment: occasion Drug use: No Sexual activity: Yes Partners with: Male control/protection: Tubal Ligation Comment: Monogamous with of 8 years. ACTIVE PROBLEM LIST Impaired Fasting Glucose Abnormal Maternal Glucose Tolerance, Antepartum Tension Headache Insomnia, Unspecified Migraine, Unspecified, Without Mention of Intractable Migraine Without Mention of Status Migrainosus Anxiety Elevated Blood Pressure (Not Hypertension) Left Upper Extremity Numbness Cervicothoracic Somatic Dysfunction No current outpatient prescriptions on file. No current facility-administered medications for this visit. PAP EVERY 5 YEARS due on 07/02/2017 HPV EVERY 5 YEARS due on 07/02/2017 EXAM: BP 136/84 Pulse 68 Resp 16 Wt 82.1 kg (181 lb) BMI 33.11 kg/m2 Pleasant adult woman in no acute distress. Alert and oriented all spheres. Normal affect and cognition. Speech normal. No deficits to learning or comprehension. Skin warm, dry, pink to lips and nailbeds. Normal turgor. Circular scaly patch on right upper arm slightly pink with some central clearing. Respirations regular and unlabored. Neck: Large tender trigger point on the right lateral posterior muscles, tenderness bilaterally in anterior and posterior scalenes, upper traps. Patient has mild restriction with range of motion in lateral rotation and side bending particularly to the right but also somewhat in the left. Extrem: no clubbing, cyanosis, edema. Extremities are warm and pink with prompt capillary refill. OMT: Per request, myofascial release to tender trigger points, muscle energy techniques, assisted release, HVLA to cervical segments with marked improvement. ASSESSMENT/PLAN: 1. Tinea corporis - ICD9: 110.5, ICD10: B35.4 (primary diagnosis) - Keep area of concern very dry. Ok to use OTC antifungal powder if area is moist - Follow up with PCP if symptoms persist or do not improved after 4-6 weeks of treatment. - Advised to use Lotrisone cream twice a day as directed for 2 weeks or until burning and itching improve, then swith to Lotrimen cream twice a day as directed (over the counter) until every trace of skin rash or peeling is gone. - CLOTRIMAZOLE-BETAMETHASONE 1 %-0.05 % TOPICAL CREAM 2. Somatic dysfunction of cervical region - ICD9: 739.1, ICD10: M99.01 Stretching, muscle energy techniques reviewed. Ice, moist heat, jhyq-oey-pnzyhxl analgesics as needed. Follow-up when necessary ESPERANZA De La Cruz Observed: 12/05/2017 Status: COMPLETED Source: [place] 2:00 PM [facility] REPOSITORY Office Visit (FAMPWS) LAVERNEMANUEL Luevano ([id number]) 1980 F Date Time Provider Department 12/05/17 2:00 PM Venessa MUÑIZ) [facility] During your visit today, we recorded the following information about you: Pulse Respiration Blood pressure Weight 68/minute 16/minute 136/84 82.1 kg M Colten Muñiz PA-C 12/05/2017 7:12 PM Signed 37 year old female with c/o knot in neck over last . restricting movement left range of motion. Dull achy pain in shoulder. 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 No numbness, tingling or radiation. Also has a scaly itchy rash on her right upper arm over the last 4-5 days. Not sure if it's enlarged. No immediate contact with rash. HISTORIES FAMILY HISTORY Problem Relation Age of Onset - Diabetes Mother - None Father from ? polimyelitis? (see 04/25/2011) - Cancer Maternal Grandfather unknown primary PAST MEDICAL HISTORY Diagnosis Date - Abnormal maternal glucose tolerance, antepartum 1995 - Insomnia, unspecified - Myopia - Tension headache PAST SURGICAL HISTORY Procedure Laterality Date - LASIK 04/02/2014 [facility] OD DVA by Dr Chaves/Dr Fagan attending - LIGATE FALLOPIAN TUBE 2005 Tubal ligation - PAST SURGICAL HISTORY OF age 20 +/- wisdom teeth - PRK 04/02/2014 with [facility] OS DVA by Dr Chaves/Dr Fagan attending Social History Marital status: Spouse name: sebas Years of education: Number of children: 2 Occupational History Occupation Employer Comment [employer]* Social History Main Topics Smoking status: Never Smoker Smokeless status: Never Used Alcohol use: Yes Comment: occasion Drug use: No Sexual activity: Yes Partners with: Male control/protection: Tubal Ligation Comment: Monogamous with of 8 years. ACTIVE PROBLEM LIST Impaired Fasting Glucose Abnormal Maternal Glucose Tolerance, Antepartum Tension Headache Insomnia, Unspecified Migraine, Unspecified, Without Mention of Intractable Migraine Without Mention of Status Migrainosus Anxiety Elevated Blood Pressure (Not Hypertension) Left Upper Extremity Numbness Cervicothoracic Somatic Dysfunction No current outpatient prescriptions on file. No current facility-administered medications for this visit. PAP EVERY 5 YEARS due on 07/02/2017 HPV EVERY 5 YEARS due on 07/02/2017 EXAM: BP 136/84 Pulse 68 Resp 16 Wt 82.1 kg (181 lb) BMI 33.11 kg/m2 Pleasant adult woman in no acute distress. Alert and oriented all spheres. Normal affect and cognition. Speech normal. No deficits to learning or comprehension. Skin warm, dry, pink to lips and nailbeds. Normal turgor. Circular scaly patch on right upper arm slightly pink with some central clearing. Respirations regular and unlabored. Neck: Large tender trigger point on the right lateral posterior muscles, tenderness bilaterally in anterior and posterior scalenes, upper traps. Patient has mild restriction with range of motion in lateral rotation and side bending particularly to the right but also somewhat in the left. Extrem: no clubbing, cyanosis, edema. Extremities are warm and pink with prompt capillary refill. OMT: Per request, myofascial release to tender trigger points, muscle energy techniques, assisted release, HVLA to cervical segments with marked improvement. ASSESSMENT/PLAN: 1. Tinea corporis - ICD9: 110.5, ICD10: B35.4 (primary diagnosis) - Keep area of concern very dry. Ok to use OTC antifungal powder if area is moist - Follow up with PCP if symptoms persist or do not improved after 4-6 weeks of treatment. - Advised to use Lotrisone cream twice a day as directed for 2 weeks or until burning and itching improve, then swith to Lotrimen cream twice a day as directed (over the counter) until every trace of skin rash or peeling is gone. - CLOTRIMAZOLE-BETAMETHASONE 1 %-0.05 % TOPICAL CREAM 2. Somatic dysfunction of cervical region - ICD9: 739.1, ICD10: M99.01 Stretching, muscle energy techniques reviewed. Ice, moist heat, megy-gze-bfxckac analgesics as needed. Follow-up when necessary ESPERANZA De La Cruz PA-C 12/05/2017 2:19 PM Signed Rest from activities that strain neck. Make sure pillow is adequate to maintain neutral neck position if lying on side or back. Rolling up a soft blanket or towel in the bottom of your pillow case may provide extra support. You could also get a cervical pillow. You may try gentle range of motion stretches laying on your back on a firm surface so that your postural neck muscles are relaxed. You can then turn to either direction to the point pain occurs, hold it, and then attempt to turn a few degrees further until you are able to get your chin to the shoulder. If this make pain or stiffness worse, stop. Gentle massage, moist heat for 10-15 minutes, or lineaments may help with pain and are fine to use. If pain worsens, numbness, tingling of loss of sensation or strength is occurring, please call us immediately. If your neck pain persists, we may consider physical therapy to help. Use Lotrisone cream twice a day as directed for 2 weeks or until burning and itching improve, then swith to Lotrimen cream twice a day as directed (over the counter) until every trace of skin rash or peeling is gone. Referring Provider: SELF [200] Allergies As of Date: 12/05/2017 Noted Allergy Reaction AMOXACILLIN (AMOXICILLIN) 08/31/2008 4 - Hives PAXIL (PAROXETINE HCL) 10/15/2017 8 - GI Upset Comments: Nausea, vomiting. PERCOCET (OXYCODONE-ACETAMINOPHEN)04/08/2014 11 - Vomiting ZOLOFT (SERTRALINE HCL) 10/15/2017 5 - Intolerance Comments: Nausea, trouble eating Date Reviewed: 12/05/2017 Reviewed by: Lorie Gan Ma - Fully Assessed Reason for Visit: Neck Pain [135] Primary Visit Diagnosis:Tinea corporis [B35.4] Other Visit Diagnosis:Somatic dysfunction of cervical region [M99.01] Order(s):clotrimazole-betamethasone (LOTRISONE) creamApply 1 application to affected area twice daily. UNTIL CLEAR FOR UP TO 2-3 WEEKSDisp: 15 gRfl: 1 Prescriptions as of 12/05/2017 Sig: CLOTRIMAZOLE-BETAMETHASONE 1 * Apply 1 application to affect* Problem List As Of Date 12/05/2017 Noted Resolved Impaired fasting glucose [R73.01] INVALID FOR* Priority: A ABN GLUCOSE-ANTEPARTUM [O99.810] TENSION HEADACHE [G44.209] INVALID FOR* Insomnia, unspecified [G47.00] INVALID FOR* Priority: B Routine general medical examination at a health*INVALID FOR*09/25/2013 Priority: A Class: Chronic More... Routine gynecological examination [Z01.419] INVALID FOR*09/25/2013 Priority: B Class: Chronic More... Migraine, unspecified, without mention of intra*INVALID FOR* Priority: A Anxiety [F41.9] INVALID FOR* Priority: A Elevated blood pressure (not hypertension) [R03*INVALID FOR* Priority: A Left upper extremity numbness [R20.0] INVALID FOR* Counseling and coordination of care [Z71.89] INVALID FOR*07/09/2015 More... Cervicothoracic somatic dysfunction [M99.01] INVALID FOR* Other instructions from your clinician: Rest from activities that strain neck. Make sure pillow is adequate to maintain neutral neck position if lying on side or back. Rolling up a soft blanket or towel in the bottom of your pillow case may provide extra support. You could also get a cervical pillow. You may try gentle range of motion stretches laying on your back on a firm surface so that your postural neck muscles are relaxed. You can then turn to either direction to the point pain occurs, hold it, and then attempt to turn a few degrees further until you are able to get your chin to the shoulder. If this make pain or stiffness worse, stop. Gentle massage, moist heat for 10-15 minutes, or lineaments may help with pain and are fine to use. If pain worsens, numbness, tingling of loss of sensation or strength is occurring, please call us immediately. If your neck pain persists, we may consider physical therapy to help. Use Lotrisone cream twice a day as directed for 2 weeks or until burning and itching improve, then swith to Lotrimen cream twice a day as directed (over the counter) until every trace of skin rash or peeling is gone. Prescriptions ordered this encounter Disp Refills Start End CLOTRIMAZOLE-BETAMETHASONE 1 %-0.05 * 15 g 1 12/05/2017 12/05/2017 Route: TOPICAL Sig: Apply 1 application to affected area twice daily. UNTIL CLEAR FOR UP TO 2-3 WEEKS CLOTRIMAZOLE-BETAMETHASONE 1 %-0.05 * 15 g 1 12/05/2017 Route: TOPICAL Sig: Apply 1 application to affected area twice daily. UNTIL CLEAR FOR UP TO 2-3 WEEKS Medications Discontinued During This Encounter clotrimazole-betamethasone (LOTRISON* 15 g 1 12/05/2017 12/05/2017 Route: TOPICAL Sig: Apply 1 application to affected area twice daily. UNTIL CLEAR FOR UP TO 2-3 WEEKS Disc: Reason for discontinue is not on file. Encounter Status:Closed by Venessa MUÑIZ PA-C on 12/05/17 ALLERGIES ALLERGIES DATE TYPE / NAME / CODE REACTION SEVERITY SOURCE CODE 10/15/2017 DRUG PAROXETINE HCL GI UPSET [address] [id number](SN Repository [facility]) 10/15/2017 DRUG SERTRALINE HCL INTOLERANCE [address] [id number](SN Repository [facility]) 04/08/2014 DRUG/[id number] OXYCODONE-ACETAMI Vomiting [facility] 1003(SNOME NOPHEN [facility] D CT) Repository 08/31/2008 DRUG AMOXICILLIN HIVES [address] [id number](SN Repository [facility]MED CT) ENCOUNTERS ENCOUNTERS ADMIT/DISCHARGE ACCOUNT ADMITTING ENCOUNTER LOCATION SOURCE NUMBER CLASS 11/14/2018/11/15/19 [id number] Ambulatory [address] [place] Repository 10/17/2018/10/17/20 [id number] Ambulatory [address] Repository 10/17/2018 [id number] Ambulatory [facility] ing:LAB Repository 10/17/2018/10/21/20 [id number] Ambulatory [address] [place] Repository 10/16/2018/10/17/20 [id number] Ambulatory [address] Repository 10/07/2018/10/08/20 [id number] Ambulatory [address] Repository 10/04/2018/10/04/20 [id number] Ambulatory [address] [place] Repository 10/04/2018/10/07/20 [id number] Ambulatory [facility] [place] Repository 09/24/2018/09/24/20 [id number] Ambulatory [facility] [place] Repository 09/24/2018/09/24/20 [id number] Ambulatory [facility] [place] Repository 09/17/2018/09/18/20 [id number] Ambulatory [facility] [place] Repository 09/16/2018/09/16/20 [id number] Ambulatory [facility] [place] Repository 08/16/2018/08/19/20 [id number] Ambulatory [facility] [place] Repository 07/23/2018/07/24/20 [id number] Ambulatory [facility] [place] Repository 07/19/2018/07/23/20 [id number] Ambulatory [facility] [place] Repository 06/05/2018/06/06/20 [id number] Ambulatory [facility] [place] Repository 06/03/2018/06/03/20 [id number] Ambulatory [facility] [place] Repository 06/03/2018/06/04/20 [id number] Ambulatory [facility] [place] Repository 05/24/2018/05/24/20 [id number] Ambulatory [facility] [place] Repository 04/30/2018/05/01/20 [id number] Ambulatory [facility] [place] Repository 04/22/2018/04/23/20 [id number] Ambulatory [facility] [place] Repository 04/08/2018/04/09/20 [id number] Ambulatory [facility] [place] Repository 02/11/2018/02/13/20 [id number] Ambulatory [facility] [place] Repository 01/24/2018/01/26/20 [id number] Ambulatory [facility] [place] Repository 01/09/2018/01/15/20 [id number] Ambulatory [facility] [place] Repository 12/26/2017/12/28/19 [id number] Ambulatory [facility] [place] Repository 12/12/2017/12/12/19 [id number] Ambulatory [facility] [place] Repository 12/11/2017/12/13/19 [id number] Ambulatory [facility] [place] Repository 12/05/2017/12/05/19 [id number] Ambulatory [facility] [place] Repository PAYERS PAYERS ENCOUNTER GUARANTOR PAYER SUBSCRIBER SOURCE 10/17/2018 MANUEL Landry Primary MANUEL Landry [place] [id number] VICKERS Insurance:MUTUAL REIKERDOB: [place] [facility] [id number] [id number]: [phone] EHPPolicy Number: Repository [phone] (HP) [id number] Date:[id number] [address] [address]WH: 10/17/2018 Secondary NOT GIVENUNK Livan Insurance:SELF PAY [facility] Number: Effective Repository Date:2018-10-17
== END ==
PROVIDERS: Referring Provider Nurse Practitioner; Visit Provider Nurse Practitioner
DX: Z11.3 Encounter for screening for infections with a predominantly sexual mode of transmission (principal)
CPT/HCPCS: 36415; 86592; 86695; 86696

== ENCOUNTER → 2021-07-05 07:49 | Outpatient (CLI) | payer OTHER, SELFPAY | PROVIDERS: PCP Physician Assistant; Referring Provider Obstetrics & Gynecology; Visit Provider Obstetrics & Gynecology | DX: N97.9 Female infertility, unspecified (principal) ==